=== PATIENT | male | born 1955 | race Caucasian/White ===

== ENCOUNTER 2020-07-12 08:16 | Outpatient (REF) | payer BC, SELFPAY ==
[2020-07-12 11:15] LABS: MANUAL DIFF FLAG NO
[2020-07-12 11:21] LABS: Basophils Absolute Auto 0.1 X10*3/uL (0.0-0.2); Basophils Percent Auto 1.2 % (0-2); Eosinophils Absolute Auto 0.1 X10*3/uL (0.0-0.4); Hematocrit 48.2 % (42-52); Imm Gran Abs Auto 0.04 X10*3/uL (0.00-0.03); Imm Gran Pct Auto 0.7 % (0.0-0.4); Lymphocytes Absolute Auto 1.4 X10*3/uL (1.2-4.9); Lymphocytes Percent Auto 22.7 % (20-40); Mean Corpuscular HGB Conc 33.2 g/dl (31.0-36.0); Mean Corpuscular Hemoglobin 31.3 pg (27.0-33.0); Mean Corpuscular Volume 94.1 fL (80-98); Mean Platelet Volume 10.1 fL (9.4-12.4); Monocytes Absolute Auto 0.4 X10*3/uL (0.1-1.2); Monocytes Percent Auto 7.1 % (2-11); Neutrophils Absolute Auto 3.9 X10*3/uL (2.0-8.3); Neutrophils Percent Auto 66.3 % (45-73); Platelet Count 363 X10*3/uL (160-400); Red Blood Count 5.12 X10*6/uL (4.60-5.80); Red Cell Distribution Width 13.2 % (11.0-16.0); White Blood Count 5.9 X10*3/uL (4.8-10.8)
[2020-07-12 11:53] LABS: Alanine Aminotransferase 17 U/L (0-40); Albumin Level 4.6 g/dL (3.5-5.0); Alkaline Phosphatase 78 U/L (39-117); Anion Gap 13 (12-20); Aspartate Amino Transferase 15 U/L (5-37); Bilirubin Total 0.9 mg/dL (0.0-1.0); Blood Urea Nitrogen 22 mg/dL (9-16); Calcium 9.5 mg/dL (8.4-10.2); Carbon Dioxide 28 mmol/L (22-29); Chloride 105 mmol/L (96-108); Cholesterol 204 mg/dL; Estimated Glomerular Filt Rate 54; Glucose Fasting 87 mg/dL (60-99); HDL Cholesterol 45 mg/dL; LDL Cholesterol Calculated 137 mg/dl; Potassium 4.5 mmol/L (3.3-5.1); Sodium 141 mmol/L (135-145); Total Protein 6.9 g/dL (6.5-8.0); Triglycerides 114 mg/dL
[2020-07-12 12:05] LABS: PSA,Total (Free>4and<10) 6.32 ng/mL (0.00-4.00); Thyroid Stimulating Hormone 1.48 uIU/mL (0.32-4.0); Vitamin D 25-OH Total 70.1 ng/mL (>30)
[2020-07-13 12:56] LABS: Percent Free Prostate Spec Ag 18 % (calc) (>25); Prostate Specific Ag Total 5.7 ng/mL (< OR = 4.0)
== END 2020-07-12 08:17 | disposition home or self-care (01) ==
LOC: HO.HMGCLDS 08:16
PROVIDERS: PCP Internal Medicine; Visit Provider Internal Medicine
DX: Z00.00 Encounter for general adult medical examination without abnormal findings (principal); Z12.5 Encounter for screening for malignant neoplasm of prostate; R97.20 Elevated prostate specific antigen [PSA]; E78.00 Pure hypercholesterolemia, unspecified; I10 Essential (primary) hypertension
CPT/HCPCS: 36415; 80053; 80061; 82306; 84153; 84154; 84443; 85025

== ENCOUNTER 2021-07-19 08:15 | Outpatient (REF) | payer BC, SELFPAY ==
[2021-07-19 11:18] LABS: MANUAL DIFF FLAG NO
[2021-07-19 12:03] LABS: Alanine Aminotransferase 21 U/L (0-40); Albumin Level 4.4 g/dL (3.5-5.0); Alkaline Phosphatase 73 U/L (39-117); Anion Gap 13 (12-20); Aspartate Amino Transferase 17 U/L (5-37); Bilirubin Total 0.8 mg/dL (0.0-1.0); Blood Urea Nitrogen 22 mg/dL (9-16); Carbon Dioxide 26 mmol/L (22-29); Chloride 105 mmol/L (96-108); Cholesterol 182 mg/dL; Estimated Glomerular Filt Rate > 60; Glucose Fasting 98 mg/dL (60-99); HDL Cholesterol 45 mg/dL; LDL Cholesterol Calculated 113 mg/dl; Potassium 4.5 mmol/L (3.3-5.1); Sodium 139 mmol/L (135-145); Total Protein 6.7 g/dL (6.5-8.0); Triglycerides 120 mg/dL
[2021-07-19 12:21] LABS: Basophils Absolute Auto 0.1 X10*3/uL (0.0-0.2); Basophils Percent Auto 0.8 % (0-2); Eosinophils Absolute Auto 0.2 X10*3/uL (0.0-0.4); Eosinophils Percent Auto 2.8 % (0-4); Hematocrit 49.9 % (42.0-52.0); Hemoglobin 16.3 g/dl (14.0-18.0); Imm Gran Abs Auto 0.03 X10*3/uL (0.00-0.03); Imm Gran Pct Auto 0.5 % (0.0-0.4); Lymphocytes Absolute Auto 1.5 X10*3/uL (1.2-4.9); Lymphocytes Percent Auto 23.2 % (20-40); Mean Corpuscular HGB Conc 32.7 g/dl (31.0-36.0); Mean Corpuscular Hemoglobin 30.8 pg (27.0-33.0); Mean Corpuscular Volume 94.3 fL (80.0-98.0); Mean Platelet Volume 10.1 fL (9.4-12.4); Monocytes Absolute Auto 0.5 X10*3/uL (0.1-1.2); Monocytes Percent Auto 7.1 % (2-11); Neutrophils Absolute Auto 4.2 x10*3/uL (2.0-8.3); Neutrophils Percent Auto 65.6 % (45-73); Platelet Count 360 X10*3/uL (160-400); Red Blood Count 5.29 X10*6/uL (4.60-5.80); Red Cell Distribution Width 13.6 % (11.0-16.0); White Blood Count 6.3 X10*3/uL (4.8-10.8)
[2021-07-19 12:36] LABS: Thyroid Stimulating Hormone 1.92 uIU/mL (0.32-4.0); Vitamin D 25-OH Total 72.1 ng/mL (>30)
[2021-07-20 12:36] LABS: Free Prostate Spec Ag 1.3 ng/mL; Percent Free Prostate Spec Ag 19 % (calc) (>25); Prostate Specific Ag Total 6.7 ng/mL (< OR = 4.0)
== END 2021-07-19 08:16 | disposition home or self-care (01) ==
LOC: HO.LAB 08:15
PROVIDERS: PCP Internal Medicine; Visit Provider Internal Medicine
DX: Z00.00 Encounter for general adult medical examination without abnormal findings (principal); Z12.5 Encounter for screening for malignant neoplasm of prostate; I10 Essential (primary) hypertension; E78.00 Pure hypercholesterolemia, unspecified
CPT/HCPCS: 36415; 80053; 80061; 82306; 84153; 84154; 84443; 85025

== ENCOUNTER 2022-09-20 09:50 | Outpatient (REF) | payer BC, SELFPAY ==
--- NOTE | ~2022-09-20 | FL_ITS ---
PROCEDURE: FL BARIUM SWALLOW CLINICAL INFORMATION: Dysphagia. COMPARISON: Feels like solids get stuck in the throat. TECHNIQUE: Barium swallow examination is performed using fluoroscopic evaluation in addition to multiple fluoroscopic spot views. The patient is imaged both upright and prone and using both thick and thin sulfate along with effervescent granules. Fluoroscopy time: 1.5 minutes DAP: 18.691 Gycm2 Images: 42 FINDINGS: Following oral administration of thick barium, barium-coated turkey in upright view and various positions there is normal propagation of bolus from the oral cavity through the pharynx, esophagus into stomach without any evidence of obstruction, narrowing or stricture. No extrinsic compressions. No laryngeal penetration or obstruction seen. On placing patient prone lying and oral administration of thin barium there is good distention of the esophagus without any evidence of obstruction, narrowing or stricture. There is a small sliding hiatal hernia with mild gastroesophageal reflux. FL/FL barium swallow IMPRESSION: Small sliding hiatal hernia with mild gastroesophageal reflux in supine and prone lying position.
--- NOTE | ~2022-09-20 | XR_ITS ---
EXAMINATION: XR CHEST CLINICAL INFORMATION: Essential hypertension COMPARISON: None available. TECHNIQUE: 2 views of the chest were obtained. FINDINGS: Heart size within normal limits. Aorta is tortuous. Mediastinum is unremarkable. No vascular congestion or consolidations. Trace left costophrenic angle blunting. Degenerative changes and dextroscoliosis. XR/XR chest 2V IMPRESSION: No acute cardiopulmonary disease. Trace left costophrenic angle blunting.
== END 2022-09-20 09:51 | disposition home or self-care (01) ==
LOC: HO.XRAY 09:50
PROVIDERS: PCP Internal Medicine; Visit Provider Internal Medicine
DX: R13.10 Dysphagia, unspecified (principal); I10 Essential (primary) hypertension
CPT/HCPCS: 71046; 74220

== ENCOUNTER 2022-10-25 07:04 | Outpatient (REF) | payer BC, SELFPAY ==
[2022-10-25 11:09] LABS: MANUAL DIFF FLAG NO
[2022-10-25 11:30] LABS: Basophils Absolute Auto 0.1 X10*3/uL (0.0-0.2); Basophils Percent Auto 1.1 % (0-2); Eosinophils Absolute Auto 0.2 X10*3/uL (0.0-0.4); Eosinophils Percent Auto 3.4 % (0-4); Hematocrit 47.5 % (42.0-52.0); Hemoglobin 15.9 g/dl (14.0-18.0); Imm Gran Abs Auto 0.05 X10*3/uL (0.00-0.03); Imm Gran Pct Auto 0.7 % (0.0-0.4); Lymphocytes Absolute Auto 1.7 X10*3/uL (1.2-4.9); Lymphocytes Percent Auto 24.6 % (20-40); Mean Corpuscular HGB Conc 33.5 g/dl (31.0-36.0); Mean Corpuscular Hemoglobin 31.3 pg (27.0-33.0); Mean Corpuscular Volume 93.5 fL (80.0-98.0); Mean Platelet Volume 10.1 fL (9.4-12.4); Monocytes Absolute Auto 0.6 X10*3/uL (0.1-1.2); Monocytes Percent Auto 8.4 % (2-11); Neutrophils Absolute Auto 4.4 x10*3/uL (2.0-8.3); Neutrophils Percent Auto 61.8 % (45-73); Platelet Count 367 X10*3/uL (160-400); Red Blood Count 5.08 X10*6/uL (4.60-5.80); Red Cell Distribution Width 13.2 % (11.0-16.0); White Blood Count 7.1 X10*3/uL (4.8-10.8)
[2022-10-25 12:26] LABS: Alanine Aminotransferase 16 U/L (0-40); Albumin Level 4.3 g/dL (3.5-5.0); Alkaline Phosphatase 75 U/L (39-117); Anion Gap 14 (12-20); Aspartate Amino Transferase 20 U/L (5-37); Bilirubin Total 1.1 mg/dL (0.0-1.0); Blood Urea Nitrogen 23 mg/dL (9-16); Calcium 9.7 mg/dL (8.4-10.2); Carbon Dioxide 24 mmol/L (22-29); Chloride 106 mmol/L (96-108); Cholesterol 184 mg/dL; Estimated Glomerular Filt Rate 56; Glucose Fasting 93 mg/dL (60-99); HDL Cholesterol 40 mg/dL; LDL Cholesterol Calculated 128 mg/dl; Sodium 140 mmol/L (135-145); Total Protein 6.8 g/dL (6.5-8.0); Triglycerides 82 mg/dL
[2022-10-25 12:36] LABS: PSA,Total (Free>4and<10) 9.44 ng/mL (0.00-4.00)
[2022-10-25 12:40] LABS: Thyroid Stimulating Hormone 1.77 uIU/mL (0.32-4.0)
[2022-10-29 12:09] LABS: Free Prostate Spec Ag 1.6 ng/mL; Percent Free Prostate Spec Ag 18 % (calc) (>25); Prostate Specific Ag Total 8.7 ng/mL (< OR = 4.0)
== END 2022-10-25 07:05 | disposition home or self-care (01) ==
LOC: HO.HMGCLDS 07:04
PROVIDERS: PCP Internal Medicine; Visit Provider Internal Medicine
DX: Z00.00 Encounter for general adult medical examination without abnormal findings (principal); I10 Essential (primary) hypertension; E78.00 Pure hypercholesterolemia, unspecified; Z12.5 Encounter for screening for malignant neoplasm of prostate
CPT/HCPCS: 36415; 80053; 80061; 84153; 84154; 84443; 85025

== ENCOUNTER 2023-11-11 07:38 | Outpatient (REF) | payer MEDICARE, SELFPAY ==
[2023-11-11 10:16] LABS: MANUAL DIFF FLAG NO
[2023-11-11 10:30] LABS: Basophils Absolute Auto 0.1 X10*3/uL (0.0-0.2); Eosinophils Absolute Auto 0.3 X10*3/uL (0.0-0.4); Eosinophils Percent Auto 3.7 % (0-4); Hematocrit 47.6 % (42.0-52.0); Imm Gran Abs Auto 0.04 X10*3/uL (0.00-0.03); Imm Gran Pct Auto 0.5 % (0.0-0.4); Lymphocytes Absolute Auto 1.5 X10*3/uL (1.2-4.9); Mean Corpuscular HGB Conc 33.6 g/dl (31.0-36.0); Mean Corpuscular Hemoglobin 31.6 pg (27.0-33.0); Mean Corpuscular Volume 93.9 fL (80.0-98.0); Mean Platelet Volume 10.1 fL (9.4-12.4); Monocytes Absolute Auto 0.5 X10*3/uL (0.1-1.2); Monocytes Percent Auto 6.1 % (2-11); Neutrophils Absolute Auto 5.1 x10*3/uL (2.0-8.3); Neutrophils Percent Auto 68.7 % (45-73); Platelet Count 332 X10*3/uL (160-400); Red Blood Count 5.07 X10*6/uL (4.60-5.80); Red Cell Distribution Width 13.4 % (11.0-16.0); White Blood Count 7.4 X10*3/uL (4.8-10.8)
[2023-11-11 10:58] LABS: Alanine Aminotransferase 14 U/L (0-40); Albumin Level 4.4 g/dL (3.5-5.0); Alkaline Phosphatase 73 U/L (39-117); Anion Gap 14 (12-20); Aspartate Amino Transferase 15 U/L (5-37); Bilirubin Total 1.1 mg/dL (0.0-1.0); Blood Urea Nitrogen 19 mg/dL (9-16); Calcium 9.3 mg/dL (8.4-10.2); Carbon Dioxide 25 mmol/L (22-29); Chloride 106 mmol/L (96-108); Cholesterol 213 mg/dL (<200); Estimated Glomerular Filt Rate 50; Glucose Fasting 102 mg/dL (60-99); HDL Cholesterol 50 mg/dL (>40); LDL Cholesterol Calculated 144 mg/dL (<100); Potassium 4.2 mmol/L (3.3-5.1); Sodium 141 mmol/L (135-145); Thyroid Stimulating Hormone 1.98 uIU/mL (0.32-4.0); Triglycerides 96 mg/dL (<150); Vitamin D 25-OH Total 82.4 ng/mL (>30)
== END 2023-11-11 07:39 | disposition home or self-care (01) ==
LOC: HO.HMGCLDS 07:38
PROVIDERS: PCP Internal Medicine; Visit Provider Internal Medicine
DX: Z00.00 Encounter for general adult medical examination without abnormal findings (principal); I10 Essential (primary) hypertension; E78.00 Pure hypercholesterolemia, unspecified
CPT/HCPCS: 36415; 80053; 80061; 82306; 84443; 85025

== ENCOUNTER 2024-04-08 08:03 | Outpatient (REF) | payer MEDICARE, SELFPAY ==
[2024-04-08 10:51] LABS: Alanine Aminotransferase 16 U/L (0-40); Albumin Level 4.1 g/dL (3.5-5.0); Alkaline Phosphatase 58 U/L (39-117); Anion Gap 11 (12-20); Aspartate Amino Transferase 19 U/L (5-37); Bilirubin Total 0.7 mg/dL (0.0-1.0); Blood Urea Nitrogen 33 mg/dL (9-16); Calcium 9.7 mg/dL (8.4-10.2); Carbon Dioxide 27 mmol/L (22-29); Chloride 111 mmol/L (96-108); Cholesterol 174 mg/dL (<200); Estimated Glomerular Filt Rate 30; Glucose Fasting 92 mg/dL (60-99); HDL Cholesterol 50 mg/dL (>40); LDL Cholesterol Calculated 110 mg/dL (<100); Sodium 145 mmol/L (135-145); Total Protein 6.5 g/dL (6.5-8.0); Triglycerides 72 mg/dL (<150)
== END 2024-04-08 08:04 | disposition home or self-care (01) ==
LOC: HO.HMGCLDS 08:03
PROVIDERS: PCP Internal Medicine; Visit Provider Internal Medicine
DX: I10 Essential (primary) hypertension (principal); E78.00 Pure hypercholesterolemia, unspecified
CPT/HCPCS: 36415; 80053; 80061

== ENCOUNTER 2024-05-23 12:37 | Outpatient (REF) | payer MEDICARE, SELFPAY ==
[2024-05-23 14:04] LABS: Alanine Aminotransferase 20 U/L (0-40); Albumin Level 4.2 g/dL (3.5-5.0); Alkaline Phosphatase 69 U/L (39-117); Anion Gap 11 (12-20); Aspartate Amino Transferase 21 U/L (5-37); Bilirubin Total 0.4 mg/dL (0.0-1.0); Blood Urea Nitrogen 67 mg/dL (9-16); Calcium 9.2 mg/dL (8.4-10.2); Carbon Dioxide 21 mmol/L (22-29); Chloride 112 mmol/L (96-108); Estimated Glomerular Filt Rate 17; Glucose Random 98 mg/dL (60-115); Potassium 4.4 mmol/L (3.3-5.1); Sodium 140 mmol/L (135-145)
== END 2024-05-23 12:38 | disposition home or self-care (01) ==
LOC: HO.HMGCLDS 12:37
PROVIDERS: PCP Internal Medicine; Visit Provider Internal Medicine
DX: I10 Essential (primary) hypertension (principal); N28.9 Disorder of kidney and ureter, unspecified
CPT/HCPCS: 36415; 80053

== ENCOUNTER 2024-05-26 10:34 | Outpatient (AMB) | payer MEDICARE, SELFPAY ==
--- NOTE | 2024-05-26 10:55 | A.OFFPC_ITS ---
Vital Signs 05/26/24 11:16 Height 6 ft Weight 182 lb BMI 24.7 BP 144/82 H Blood Pressure Location Rt brachial Position Sitting Pulse 92 Temp 99 F Pulse Oximetry (%) 100 Intake Visit Reasons: 1 month follow up Intake Note: Patient states 1 month follow up. Recent h/o UTI. Completed Sulfa Rx 10 days ago. Medication caused hives. Concern re recent elevated BUN - ? due to poor hydration. Recent episode of bleeding episodes X several days, h/o same. Patient reports 25 lb weight loss, perhaps due to stress. Allergies Sulfa (Sulfonamide Antibiotics) Allergy (Verified 05/26/24 11:53) Hives Medication List - Last Reconciled 05/26/24 by Liliana Johnson PA-C amlodipine 5 mg PO DAILY ramipril 10 mg PO DAILY Physical exam (Primary Care) Vital Signs: Last Vital Signs Temp 99 F 05/26/24 11:16 Pulse 92 05/26/24 11:16 BP 144/82 H 05/26/24 11:16 Pulse Ox 100 05/26/24 11:16 Care Plan Goal for BP management: BP at 144/82 Goal is 130/80 patient on antihypertensive medication if at next visit in 1 week still elevated will increased blood pressure medication BMI result Body Mass Index 24.7 Coding Level of Care Code New Pt Level 5 (21304) Complex EM visit Add On G2211 Diagnoses Renal insufficiency N28.9 Elevated PSA R97.20 Scoliosis M41.9 Basal cell carcinoma C44.91 Hypertension I10 Mild hypercholesterolemia E78.00 Assessment & Plan Assessment & Plan (1) Renal insufficiency: Code(s): N28.9 - Disorder of kidney and ureter, unspecified Category: Medical Plan: BUN creatinine is increased at 67 and 3.53 on 05/23/2024 prior in April was 33 and 2.21. Patient recently had UTI was started on Bactrim. Patient with renal insufficiency at this time may be related to medication, dehydration, infection, mass or blockage. Explained to patient that he will need to go to the emergency department immediately for further evaluation and management. (2) Elevated PSA: Code(s): R97.20 - Elevated prostate specific antigen [PSA] Category: Medical Plan: Patient being followed by Urology at [facility]. Will obtain records. Condition is chronic and stable will continue to monitor. (3) Scoliosis: Code(s): M41.9 - Scoliosis, unspecified Category: Medical Plan: Condition is chronic and stable will continue to monitor. (4) Basal cell carcinoma: Code(s): C44.91 - Basal cell carcinoma of skin, unspecified Category: Medical Plan: Patient being followed by Dermatology. Condition is chronic and stable will continue to monitor. (5) Hypertension: Code(s): I10 - Essential (primary) hypertension Category: Medical Plan: Patient currently on ramipril and amlodipine. Condition is chronic and stable will continue to monitor. (6) Mild hypercholesterolemia: Code(s): E78.00 - Pure hypercholesterolemia, unspecified Category: Medical Plan: Patient currently on coenzyme and fish oil. With last total cholesterol 174, LDL 110 and HDL 50 on 04/08/2024. Condition is chronic and stable. Plan Plan - Refer patient to the Emergency Department for immediate evaluation of renal function, potential IV fluid administration, and further workup as deemed necessary. - Monitor kidney function closely, with emphasis on potential dehydration and effects of recent Bactrim use. - Address any medicinal adjustments, particularly Ramipril, based upon further nephrology consults and laboratory evaluations. - Encourage continued hydration with clear fluids to support kidney function. Orders: Referrals Nephrology Referral E78.00 - Pure hypercholesterolemia, unspecified, I10 - Essential (primary) hypertension, N28.9 - Disorder of kidney and ureter, unspecified Medications: Discontinued sulfamethoxazole-trimethoprim 800-160 mg (Bactrim DS) Discontinued Reason: Patient Completed Course 1 tab PO BID 7 days 14 tabs 0RF phenazopyridine (Pyridium) Discontinued Reason: Patient Completed Course 200 mg PO TID 3 days 9 tabs 0RF Patient Instructions: Patient Instructions - Proceed to the Emergency Room today for further evaluation and potential treatment. - Continue to maintain hydration with water and clear fluids. - Follow-up within one week, possibly via telehealth, to discuss ER findings and next steps. - Monitor urinary changes or new symptoms and seek care promptly if they arise. - Complete any referred appointments with nephrology for advanced kidney management. Scribe Plan - Not visible on output: History of Present Illness The patient is a 68-year-old male presenting with renal insufficiency. He has a history of hypertension, hyperlipidemia, scoliosis, basal cell carcinoma, elevated PSA, and a recent bladder infection. Approximately three days prior to this visit, his creatinine level was significantly elevated at 3.53, indicating renal insufficiency. The patient had been on Bactrim, an antibiotic which can exacerbate kidney dysfunction, as part of his recent UTI treatment prescribed by Dr. Kovacs on 05/08/2024. After completing a seven-day course of Bactrim, the patient experienced a rash resembling hives. He reports drinking water regularly, although he purposely dehydrated before a recent blood draw following a plane flight. The patient denies any history of kidney stones, hematuria, or cancer, per urology evaluation. The patient's kidney function had previously been followed by Dr. Cabrales and Dr. Page. He underwent a prostate biopsy one year ago, which was negative for cancer but indicated an enlarged prostate. Social History - There is no mention of the patient's family status or caretaking responsibilities. - The patient reports an intake of water, coffee, green tea, and herbal teas as part of his nutritional habits. - He acknowledges self-monitoring and maintaining health, utilizing scar cream for recovery from skin excisions. Review of Systems - Genitourinary: Reports urinary frequency but regular flow and denies nocturia. Physical Exam Appearance: Alert. Oriented X3. No acute distress. Head: Normal external exam. Normocephalic. Atraumatic. Eyes: Pupils are equal, round, and reactive to light. Extraocular movements intact. Conjunctiva and sclera normal. Eyelids normal. Ears: External auditory canal normal. Throat: Pharynx normal. Uvula midline. Moist mucous membranes. Neck: Normal inspection. Neck supple. Full range of motion. No meningeal signs. Cardiovascular: Normal heart rate and rhythm. Heart sound normal. No murmurs noted. Pulses normal throughout. Respiratory: No respiratory distress. Painless inspiration. Breath sounds normal. No wheezes/rales/rhonchi noted. Chest nontender. No accessory muscle usage noted or decreased air movement noted. Abdomen: Soft and nontender. Bowel sounds normal in all 4 quadrants. No distention noted. No organomegaly noted. No visible injury noted. Back: No costovertebral angle tenderness. Full range of motion noted. Skin: Skin warm and dry. Normal skin color. Normal skin turgor. No rashes/lesions/lacerations noted. Extremities: Extremities exhibit normal range of motion. Extremities nontender. Neuro: Oriented X 3. No motor deficit. No sensory deficit. Reflexes normal. Results - Labs: Elevated creatinine level at 3.53 indicating impaired renal function. - Additional kidney function tests pending as per current discussion. Plan - Refer patient to the Emergency Department for immediate evaluation of renal function, potential IV fluid administration, and further workup as deemed necess justin. - Monitor kidney function closely, with emphasis on potential dehydration and effects of recent Bactrim use. - Address any medicinal adjustments, particularly Ramipril, based upon further nephrology consults and laboratory evaluations. - Encourage continued hydration with clear fluids to support kidney function. Patient was informed and verbally consented to the use of an ambient scribe for clinic note documentation during this visit. Discussion Notes I discussed with the patient the potential impact of dehydration and recent Bactrim therapy on his renal insufficiency. I advised an immediate visit to the ER for possible IV fluid management and reassessment of kidney function to ensure resolution or stabilization of the condition. I provided reassurance that the elevated creatinine may improve with rehydration and cessation of Bactrim. Follow-up with nephrology was suggested, depending upon ER findings. The patient was informed about the potential temporary discontinuation of Ramipril if recommended by nephrology. I also emphasized the need for monitoring and repeating labs to closely follow kidney function. Patient Instructions - Proceed to the Emergency Room today for further evaluation and potential treatment. - Continue to maintain hydration with water and clear fluids. - Follow-up within one week, possibly via telehealth, to discuss ER findings and next steps. - Monitor urinary changes or new symptoms and seek care promptly if they arise. - Complete any referred appointments with nephrology for advanced kidney management.
[2024-05-26 11:16] VITALS: BP 144/82; PULSE 92; TEMP 37.2; O2SAT 100; BMI 24.7
--- OUTSIDE RECORDS SUMMARY | 2024-05-26 11:54 | XMS_ITS ---
Author Organization Marshal Cabrales DO, FACP Address [address], [place] [id number] Care Team Providers Care Rhythmic Gymnastics Coach Name Role Phone Marshal Cabrales Primary Care Provider REASON FOR VISIT 1 month f/u Encounters Encounter Location Date Provider Diagnosis Marshal Cabrales DO, [facility] [address] [place] [phone] 05/26/2024 Marshal Cabrales PLAN OF TREATMENT No Information
--- OUTSIDE RECORDS SUMMARY | 2024-05-26 11:54 | XMS_ITS ---
Author Organization Marshal Cabrales DO, FACP Address [address] [place] [place], [place] [id number] Care Team Providers Care Scientific Recruiter Name Role Phone Marshal Cabrales Primary Care Provider [phone] REASON FOR VISIT f/u HTN Encounters Encounter Location Date Provider Diagnosis Marshal Cabrales DO, FACP [address] [place] [id number] 04/06/2024 Marshal Cabrales PLAN OF TREATMENT No Information
--- OUTSIDE RECORDS SUMMARY | 2024-05-26 11:54 | XMS_ITS ---
Author Organization [facility] DO [facility] Address [address], [place] [id number] Care Team Providers Care Classroom Coordinator Name Role Phone Marshal Cabrales Primary Care Provider ALLERGIES No Known Allergies REASON FOR VISIT Follow up hypertension, Elevated PSA MEDICATIONS Medication SIG (Take, Route, Frequency, Duration) Notes Start Date End Date Status Fish Oil 1200 MG 2 capsules Orally On ce a day Active Coenzyme Q-10 200 MG 1 capsule with a me al Orally Once a day Active Ramipril 10 MG 1 capsule Orally Once a day 024 Active Multivitamins 1 capsule Orally Once a day Active Probiotic 250 MG 1 capsule Orally Once a day Active amLODIPine Besylate 5 MG 1 tablet Orally Once a day Active SOCIAL HISTORY Tobacco Use: Social History Observation Description Date Details (start date - stop date) Never Smoker NA - NA Sex Assigned At : Social History Observation Description Sex Assigned At Unknown Tobacco Use/Smoking Question Answer Notes Patient is a nonsmoker Additional Findings: Tobacco Non-User Cu rrent non-smoker, currently using no form of tobacco Alcohol Screen Question Answer Notes Did you have a drink contain ing alcohol in the past year? Yes How often did you have a dri nk containing alcohol in the past year? Monthly or less (1 point) How many drinks did you have on a typical day when you were drinking in the past year? 1 or 2 drinks (0 point) How often did you have 6 or more drinks on one occasion in the past year? Never (0 point) Points 1 Interpretation Negative Encounters Encounter Location Date Provider Diagnosis Marshal Cabrales DO [facility] [address], [place] [phone] 04/17/2024 Marshal Cabrales Essential hypertensi on I10 ; Hypercholesterolemia E78.00 ; Elevated PSA R97.20 and Renal insufficiency N28.9 ASSESSMENTS Encounter Date Diagnosis Assessment Notes Treatment Notes Treatment Clinical Notes 04/17/2024 Essential hypertensi on (ICD-10 - I10) 04/17/2024 Hypercholesterolemia (ICD-10 - E78.00) 04/17/2024 Elevated PSA (ICD-10 - R97.20) Follow up with Urology 04/17/2024 Renal insufficiency (ICD-10 - N28.9) Stay well hydrated. Repeat renal function testing in 3 weeks. If BUN and creatinine do not trend downward Boom will need further evaluation with a Nephrology referral PLAN OF TREATMENT Medication Medication Name Sig Start Date Stop Date Notes Fish Oil 1200 MG 2 capsules Orally Once a day Coenzyme Q-10 200 MG 1 capsule with a me al Orally Once a day Ramipril 10 MG 1 capsule Orally Once a day 01/14/2024 Multivitamins 1 capsule Orally Once a day Probiotic 250 MG 1 capsule Orally Once a day amLODIPine Besylate 5 MG 1 tablet Orally Once a day Treatment Notes Assessment Notes Elevated PSA Follow up with Urolo gy Renal insufficiency Stay well hydrated. Repeat renal function testing in 3 weeks. If BUN and creatinine do not trend downward Boom will need further evaluation with a Nephrology referral Pending Test Test Name Order Date PROFILE, RANDOM 04/17/2024 Next Appt Details Follow Up: 4 Weeks, Reason: follow up visit,review lab work Progress Notes * Examination Category Sub-Category Detail Notes General Examination PSYCH: alert, orien felton, cognitive function intact History and Physical Notes * HPI (History of Present Illness) Category Sub-Category Detail Notes New symptom(s) Telehealth Location of provider:: Pro adryanr's home address Location of patient:: Address listed in demographics for today's visit Patient identification confirmed using:: Name, Telehealth method:: Telephone only. Cherise ent not visible to care provider. Consent:: Patient verbally c onsented to treatment, Patient verbally consented to billing insurance company, Patient informed of any privacy concerns related to method of visit Total time spent with patient (mins): 24 Disclaimer: This Telehealth visit is being conducted per CDC recommendations due to the COVID-19 outbreak.
--- OUTSIDE RECORDS SUMMARY | 2024-05-26 11:55 | XMS_ITS | Patient Health Record ---
Author Organization Marshal Cabrales DO, FAC Address [address], [place] [id number] Care Team Providers Care Agricultural Services Director Name Role Phone Marshal Cabrales Primary Care Provider [phone] ALLERGIES No Known Allergies RESULTS Component Value Reference Range Notes Complete Blood Count Auto Di ff Reviewed date:11/11/2023 10:51:08 AM Interpretation:Normal Performing Lab:[facility], [address] [place] [phone] Notes/Report: White Blood Count 7.4 4.8-10.8 X10*3/uL Red Blood Count 5.07 4.60-5.80 X10*6/uL Hemoglobin 16.0 14.0-18.0 g/dl Hematocrit 47.6 42.0-52.0 % Mean Corpuscular Volume 93.9 80.0-98.0 fL Mean Corpuscular Hemoglobin 31.6 27.0-33.0 pg Mean Corpuscular HGB Conc 33.6 31.0-36.0 g/dl Red Cell Distribution Width 13.4 11.0-16.0 % Platelet Count 332 160-400 X10*3/uL Mean Platelet Volume 10.1 9.4-12.4 fL Neutrophils Percent Auto 68.7 45-73 % Imm Gran Pct Auto 0.5 0.0-0.4 % Lymphocytes Percent Auto 20.0 20-40 % Monocytes Percent Auto 6.1 2-11 % Eosinophils Percent Auto 3.7 0-4 % Basophils Percent Auto 1.0 0-2 % NRBC Pct Auto 0.0 0.0-0.2 /100WBC Neutrophils Absolute Auto 5.1 2.0-8.3 x10*3/u L Imm Gran Abs Auto 0.04 0.00-0.03 X10*3/uL Lymphocytes Absolute Auto 1.5 1.2-4.9 X10*3/u L Monocytes Absolute Auto 0.5 0.1-1.2 X10*3/uL Eosinophils Absolute Auto 0.3 0.0-0.4 X10*3/u L Basophils Absolute Auto 0.1 0.0-0.2 X10*3/uL NRBC Abs Auto 0.000 0.0-0.012 X10*3/uL Comprehensive [place]. Panel Fa st Reviewed date:11/11/2023 11:10:02 AM Interpretation:Abnormal Performing Lab:[facility], [address] [place] [phone] Notes/Report: Sodium 141 135-145 mmol/L Potassium 4.2 3.3-5.1 mmol/L Chloride 106 96-108 mmol/L Carbon Dioxide 25 22-29 mmol/L Anion Gap 14 12-20 Blood Urea Nitrogen 19 9-16 mg/dL Creatinine 1.41 0.5-1.4 mg/dL Estimated Glomerular Filt Rate 50 NOTE: For -[place] individuals, multiply the result by 1.210. Chronic Kidney Disease: Estimated GFR < 60 mL/min/1.73m2 Severe Kidney Disease: Estimated GFR < 15 mL/min/1.73m2 Glucose Fasting 102 60-99 mg/dL A fasting glucose from 100-125 mg/dl is considered impaired (pre-diabetes). Calcium 9.3 8.4-10.2 mg/dL Bilirubin Total 1.1 0.0-1.0 mg/dL Aspartate Amino Transferase 15 5-37 U/L Alanine Aminotransferase 14 0-40 U/L Total Protein 7.0 6.5-8.0 g/dL Albumin Level 4.4 3.5-5.0 g/dL Alkaline Phosphatase 73 39-117 U/L Lipid Panel Reviewed date:11/11/2023 11:09:41 AM Interpretation:Abnormal Performing Lab:[facility], [address] [place] [phone] Notes/Report: Triglycerides 96 <150 mg/dL Desirable Triglyceride: less than 150 mg/dL Borderline High Triglyceride 150-199 mg/dL High Triglyceride: 200-499 mg/dL Very High Triglyceride: greater than or equal to 5OO mg/dL Cholesterol 213 <200 mg/dL Desirable Cholesterol: less than 200 mg/dL Borderline High Cholesterol: 200-239 mg/dL High Cholesterol: greater than 239 mg/dL LDL Cholesterol Calculated 144 <100 mg/dL Desirable LDL: less than 100 mg/dL Near Optimal/Above Optimal LDL: 110-129 mg/dL Borderline High LDL: 130-159 mg/dL High LDL: 160-189 mg/dL Very High LDL: greater than or equal to 190 mg/dL HDL Cholesterol 50 >40 mg/dL Desirable HDL: greater than 40 mg/dL Note: This HDL assay may give artificially low results in patients with liver disease. Vitamin D 25-OH Total Reviewed date:11/11/2023 11:08:39 AM Interpretation:Normal Performing Lab:[facility], [address] [place] [phone] Notes/Report: Vitamin D 25-OH Total 82.4 >30 ng/mL Health Based Reference Values* < 20 ng/mL Deficient 20-30 ng/mL Insufficient > 30 ng/mL Sufficient *Leti LOWE. N Engl J Med. 2007;357:266-280 Care must be taken in interpreting Vitamin D results from different laboratories and methodologies. Published data demonstrated that results from patients undergoing hemodialysis may show a negative bias when tested with various automated 25-OH vitamin D assays when compared to LC-MS/MS. When testing samples from patients whose predominant form of Vitamin D is Vitamin D2, such as patients receiving Vitamin D2 supplementation, results that are subtherapeutic should be confirmed with another method such as LC-MS/MS. Thyroid Stimulating Hormone Reviewed date:11/11/2023 11:08:39 AM Interpretation:Normal Performing Lab:[facility], [address] [place] [phone] Notes/Report: Thyroid Stimulating Hormone 1.98 0.32-4.0 uIU/ mL TSH 3rd Generation ([facility]) Comprehensive [place]. Panel Fa st Reviewed date:04/08/2024 11:17:09 AM Interpretation:Abnormal Performing Lab:[facility], [address] [place] [phone] Notes/Report: Sodium 145 135-145 mmol/L Potassium 4.0 3.3-5.1 mmol/L Chloride 111 96-108 mmol/L Carbon Dioxide 27 22-29 mmol/L Anion Gap 11 12-20 Blood Urea Nitrogen 33 9-16 mg/dL Creatinine 2.21 0.5-1.4 mg/dL Estimated Glomerular Filt Rate 30 Chronic Kidney Disease: Estimated GFR < 60 mL/min/1.73m2 Severe Kidney Disease: Estimated GFR < 15 mL/min/1.73m2 Glucose Fasting 92 60-99 mg/dL Calcium 9.7 8.4-10.2 mg/dL Bilirubin Total 0.7 0.0-1.0 mg/dL Aspartate Amino Transferase 19 5-37 U/L Alanine Aminotransferase 16 0-40 U/L Total Protein 6.5 6.5-8.0 g/dL Albumin Level 4.1 3.5-5.0 g/dL Alkaline Phosphatase 58 39-117 U/L Lipid Panel Reviewed date:04/08/2024 11:16:34 AM Interpretation:Normal Performing Lab:[facility], [address] [place] [phone] Notes/Report: Triglycerides 72 <150 mg/dL Desirable Triglyceride: less than 150 mg/dL Borderline High Triglyceride 150-199 mg/dL High Triglyceride: 200-499 mg/dL Very High Triglyceride: greater than or equal to 5OO mg/dL Cholesterol 174 <200 mg/dL Desirable Cholesterol: less than 200 mg/dL Borderline High Cholesterol: 200-239 mg/dL High Cholesterol: greater than 239 mg/dL LDL Cholesterol Calculated 110 <100 mg/dL Desirable LDL: less than 100 mg/dL Near Optimal/Above Optimal LDL: 110-129 mg/dL Borderline High LDL: 130-159 mg/dL High LDL: 160-189 mg/dL Very High LDL: greater than or equal to 190 mg/dL HDL Cholesterol 50 >40 mg/dL Desirable HDL: greater than 40 mg/dL Note: This HDL assay may give artificially low results in patients with liver disease. REASON FOR REFERRAL No Information MEDICATIONS Medication SIG (Take, Route, Frequency, Duration) Notes Start Date End Date Status Fish Oil 1200 MG 2 capsules Orally On ce a day Active Coenzyme Q-10 200 MG 1 capsule with a me al Orally Once a day Active amLODIPine Besylate 5 MG 1 tablet Orally Once a day Active Ramipril 10 MG 1 capsule Orally Once a day 024 Active Multivitamins 1 capsule Orally Once a day Active Probiotic 250 MG 1 capsule Orally Once a day Active IMMUNIZATIONS Vaccine Route Administration Date Status Comme nts Influenza Quad IM Intramuscular 01/13/2016 Administered Influenza Quad IM Intramuscular 01/22/2017 Administered Influenza Quad IM Intramuscular 02/23/2021 Administered Shingrix Unknown 12/15/2018 Administered Influenza Quad Unknown 03/17/2019 Administered COVID-19 Pfizer BioNTech Unknown 08/13/2020 Administere d Shingrix Unknown 04/17/2019 Administered COVID-19 Pfizer BioNTech Unknown 03/27/2021 Administere d COVID-19 Pfizer BioNTech Unknown 07/23/2020 Administere d COVID-19 Pfizer BioNTech Unknown 09/07/2021 Administere d COVID-19 Pfizer Bivalent Unknown 09/03/2022 Administere d Influenza Unknown 01/31/2024 Administered SOCIAL HISTORY Tobacco Use: Social History Observation [...] Never (0 point) Points 1 Interpretation Negative PROBLEMS Problem Type ICD Code Onset Dates Problem Status W/U Status Risk SNOMED Code Notes Problem Essential hypertensi on (I10) Active confirmed 47007247 Problem Hypercholesterolemia (E78.00) Active confirmed 67660354 Problem Dysphagia, unspecifi ed type (R13.10) Active confirmed 75890116 VITAL SIGNS Blood pressure diastolic 78 mm Hg 01/14/2024 Height 72 in 01/14/2024 Blood pressure systolic 130 mm Hg 01/14/2024 Weight 184 lbs 01/14/2024 BMI 24.95 kg/m2 01/14/2024 Encounters Encounter Location Date Provider Diagnosis Marshal Cabrales DO, [address] [phone] 08/07/2023 Marshal Cabrales Encounter for genera l adult medical examination without abnormal findings Z00.00 ; Essential hypertension I10 and Hypercholesterolemia E78.00 Marshal Cabrales DO, FACP [address], [place] [phone] 11/13/2023 Marshal Cabrales Essential hypertensi on I10 and Hypercholesterolemia E78.00 Marshal Brennan Keron , [facility] [address], [place] [id number] 01/14/2024 Marshal Cabrales Essential hypertensi on I10 and Hypercholesterolemia E78.00 Marshal Mika Keron PAHM, [facility] [address], [place] [id number] 03/31/2024 Marshal Cabrales Marshal Brennan Keron , [facility] [address], [place] [id number] 05/26/2024 Marshal Keron Marshal Brennan Keron , [facility] [address], [place] [phone] 02/28/2024 Marshal Cabrales Essential hypertensi on I10 Marshal Mika Keron PHAM, [facility] [address], [place] [phone] 04/06/2024 Marshal Cabrales Marshal Brennan Keron PHAM, [facility] [address], [place] [phone] 04/17/2024 Marshal Cabrales Essential hypertensi on I10 ; Hypercholesterolemia E78.00 ; Elevated PSA R97.20 and Renal insufficiency N28.9 Marshal Brennan Keron PHAM, [facility], [place] [phone] 01/11/2024 Marshal Cabrales ASSESSMENTS Encounter Date Diagnosis Assessment Notes Treatment Notes Treatment Clinical Notes 08/07/2023 Encounter for [facility] adult medical examination without abnormal findings (ICD-10 - Z00.00) 08/07/2023 Essential hypertensi on (ICD-10 - I10) Exercise, low salt diet 11/13/2023 Essential hypertensi on (ICD-10 - I10) Low salt diet 11/13/2023 Hypercholesterolemia (ICD-10 - E78.00) Low cholesterol diet 01/14/2024 Essential hypertensi on (ICD-10 - I10) 01/14/2024 Hypercholesterolemia (ICD-10 - E78.00) 02/28/2024 Essential hypertensi on (ICD-10 - I10) 04/17/2024 Essential hypertensi on (ICD-10 - I10) 04/17/2024 Hypercholesterolemia (ICD-10 - E78.00) 08/07/2023 Hypercholesterolemia (ICD-10 - E78.00) 04/17/2024 Elevated PSA (ICD-10 - R97.20) Follow up with Urology 04/17/2024 Renal insufficiency (ICD-10 - N28.9) Stay well hydrated. Repeat renal function testing in 3 weeks. If BUN and creatinine do not trend downward Boom will need further evaluation with a Nephrology referral PLAN OF TREATMENT Pending Test Test Name Order Date PROFILE, RANDOM 04/17/2024 Insurance Providers Payer Name Payer Address Payer Phone Subscriber Number Group Number Insured Name Patient Relationship to Insured Coverage Start Date Coverage End Date [employer] [address] [place], [place] [id number] [phone] [id number] Boom Hinojosa Self - patient is the insured MEDICAL (GENERAL) HISTORY Medical History History ICD Code hypertension basal cell carcinoma scoliosis Elevated PSA R97.20 Surgical History Surgery Date(Month/Year) tonsillectomy wisdom teeth extraction left wrist lump removal lasik surgery OU basal cell carcinoma resection
== END 2024-05-26 11:42 | disposition home or self-care (01) ==
LOC: HO.HMCSH 10:34
PROVIDERS: PCP Internal Medicine; Visit Provider Physician Assistant Medical
DX: I10 Essential (primary) hypertension (principal); N28.9 Disorder of kidney and ureter, unspecified; R97.20 Elevated prostate specific antigen [PSA]; M41.9 Scoliosis, unspecified; C44.91 Basal cell carcinoma of skin, unspecified; E78.00 Pure hypercholesterolemia, unspecified

== ENCOUNTER 2024-05-26 12:16 | Emergency (ER) | payer MEDICARE, SELFPAY ==
--- NOTE | ~2024-05-26 | US_ITS ---
EXAMINATION: US RETROPERITONEAL LIMITED (RENAL ONLY) CLINICAL INFORMATION: MOOK on CKD. COMPARISON: None available. TECHNIQUE: Routine retroperitoneal ultrasound imaging is performed with attention the kidneys. FINDINGS: RIGHT KIDNEY: 10.7 x 6.2 x 6.4 cm (SAG x AP x TRV). The kidney is normal in size, contour, and echogenicity. Renal cortical thickness is normal. No calculi or focal parenchymal lesions. There is moderate hydronephrosis. LEFT KIDNEY: 10.8 x 6.9 x 6.7 cm (SAG x AP x TRV). The kidney is normal in size, contour, and echogenicity. Renal cortical thickness is normal. No calculi or focal parenchymal lesions. There is moderate hydronephrosis. Bladder: There is a moderate enlarged prostate gland measuring 62.5 mL with extension into the base of the bladder likely cause of obstructive bilateral hydronephrosis. Bilateral ureteral jets are not seen. US/US renal BI IMPRESSION: Moderate prostate enlargement with median lobe extending through the base of bladder and appearing as intraluminal mass. This results in obstructive bilateral hydronephrosis. Correlation with noncontrast CT abdomen and pelvis can be performed if clinically indicated or urology consult. Electronically signed by: Gunnar Quigley MD 05/26/2024 01:09 PM LUPIS
[2024-05-26 12:30] VITALS: BP 169/100; PULSE 90; RESP 20; TEMP 36.6; O2SAT 100; BMI 24.7
--- NOTE | 2024-05-26 12:30 | ED.RECABL ---
HPI - Recheck/Abnormal Lab/Rx General Chief Complaint: Recheck/Abnormal Lab/Rx Stated Complaint: Abnormal labs Time Seen by Provider: 05/27/24 00:04 Source: patient Mode of arrival: ambulatory Limitations: no limitations History of Present Illness ED Provider: HPI narrative: Patient with history of enlarged prostate had recent UTI with history of hypertension was given Bactrim noted to have elevated creatinine of 3.53 on 05/23 PCP sent the patient to the ER patient's creatinine been increasing since 11/26 does have a history of enlarged prostate prostate biopsy was negative for cancer patient has had ultrasound done prior to my evaluation which showed moderate prostate enlargement with obstructive bilateral hydronephrosis Related Data Home Medications ?Medication ?Instructions ?Recorded ?Confirmed amlodipine 5 mg tablet 5 mg PO DAILY 05/26/24 05/26/24 ramipril 10 mg capsule 10 mg PO DAILY 05/26/24 05/26/24 Previous Rx's ?Medication ?Instructions ?Recorded cefuroxime axetil 250 mg tablet 250 mg PO BID 7 days #14 tabs 05/27/24 tamsulosin 0.4 mg capsule (Flomax) 0.4 mg PO BEDTIME #30 caps 05/27/24 Allergies Allergy/AdvReac Type Severity Reaction Status Date / Time Sulfa (Sulfonamide Allergy Hives Verified 05/26/24 12:32 Antibiotics) Review of Systems Review of Systems: Yes all other systems are reviewed and are negative [facility] Social History Social History Advance Directives: Yes Advance Directives Information Provided: Yes Advance Directives on File: No Physical Exam Vital Signs: Vital Signs: Last Vital Signs Temp 97.8 F 05/27/24 00:59 Pulse 96 05/27/24 00:59 Resp 16 05/27/24 00:59 BP 156/93 H 05/27/24 00:59 Pulse Ox 99 05/27/24 00:59 O2 Del Method Room Air 05/27/24 00:59 BMI result Body Mass Index 24.7 Appearance: Alert. Oriented X3. No acute distress. Eyes: No pallor or icterus ENT: Pharynx normal. Oral Mucosa moist Neck: Normal inspection. Neck supple. CVS: Normal heart rate and rhythm. Pulses normal. Respiratory: No respiratory distress. Equal air entry bilateral, no wheezing/rales/rhonchi Abdomen: Soft and nontender. Bowel sounds are present, suprapubic bladder fullness+, no CVA tenderness Skin: Skin warm and dry. Normal skin color. Normal skin turgor. Extremities: No lower extremity edema. No calf tenderness Neuro: Oriented X 3. No motor deficit. No sensory deficit.No cerebellar signs , cranial nerves II-XII intact Course Course Course Narrative: This is a Rapid Medical Examination (RME) performed by Vannessa Waters PA-C in triage. Full HPI, ROS, assessment and treatment plan per primary provider in the Main ED. 68 yo male with history of HTN, HLD, elevated PSA s/p normal prostate biopsy who presents to the ER from PCP for evaluation of MOOK on CKD. he recently had UTI and was treated with Bactrim x7 days. routine labs on 05/23 showed SCr up to 3.53 from a baseline of 2.21 in April and 1.41 in November. on BISHOP for HTN. Plan: labs, UA, urine lytes, and renal U/S Reevaluation(s) Reevaluation #1: Patient re-evaluated. Labs reviewed. He is newly anemic with hemoglobin of 10.9 from baseline of around 15-16 in the past. He reports bright red blood per rectum with hemorrhoidal lower GI bleed last week after his Bactrim. This has since resolved. No history of anemia in the past. This may also be due to his progressing CKD. Will repeat H and H now. He appears well Time: 20:15 Medications Administered Discontinued Medications Generic Name Dose Route Start Last Admin Trade Name Freq PRN Reason Stop Dose Admin Cefuroxime Axetil 500 mg 05/27/24 00:41 05/27/24 00:55 Cefuroxime Axetil 500 Mg Tablet PO 05/27/24 00:42 500 mg ONCE ONE Administration Tamsulosin HCl 0.4 mg 05/27/24 00:40 05/27/24 00:55 Tamsulosin Hcl 0.4 Mg Capsule PO 05/27/24 00:41 0.4 mg ONCE ONE Administration Medical Decision Making Medical Decision Making [facility] Narrative: Patient has bilateral obstructive hydronephrosis from enlarged prostate causing acute on chronic renal insufficiency post voidal volume was more than [address] Jarvis catheter RN tried to play the Jarvis catheter had a traumatic hematuria 14 Citizen [place] catheter was replaced by myself clear urine Lab Data MDM Lab Attestation statement: I reviewed the patient's lab results. 05/26/24 20:33 05/26/24 13:23 Labs: Lab Results 05/26/24 05/26/24 05/26/24 Range/Units 13:19 13:23 20:33 WBC 9.3 10.9 H (4.8-10.8) X10*3/uL RBC 3.46 L D 3.54 L (4.60-5.80) X10*6/uL Hgb 10.9 L D 11.1 L (14.0-18.0) g/dl Hct 32.5 L D 32.8 L (42.0-52.0) % MCV 93.9 92.7 (80.0-98.0) fL MCH 31.5 31.4 (27.0-33.0) pg MCHC 33.5 33.8 (31.0-36.0) g/dl RDW 13.0 12.9 (11.0-16.0) % Plt Count 481 H D 482 H (160-400) X10*3/uL MPV 8.6 L 8.4 L (9.4-12.4) fL Immature Gran % (Auto) 1.1 H 1.2 H (0.0-0.4) % Neut % (Auto) 76.2 H 67.0 (45-73) % Lymph % (Auto) 14.1 L 20.5 (20-40) % [place] % (Auto) 6.3 7.7 (2-11) % Eos % (Auto) 1.1 2.1 (0-4) % Baso % (Auto) 1.2 1.5 (0-2) % Lymph # (Auto) 1.3 2.2 (1.2-4.9) X10*3/uL [place] # (Auto) 0.6 0.8 (0.1-1.2) X10*3/uL Eos # (Auto) 0.1 0.2 (0.0-0.4) X10*3/uL Baso # (Auto) 0.1 0.2 (0.0-0.2) X10*3/uL Abs Immat Gran (auto) 0.10 H 0.13 H (0.00-0.03) X10*3/uL Absolute Neuts (auto) 7.1 7.3 (2.0-8.3) x10*3/uL Absolute Nucleated RBC 0.000 0.000 (0.0-0.012) X10*3/uL Nucleated RBC % (auto) 0.0 0.0 (0.0-0.2) /100WBC Sodium 137 (135-145) mmol/L Potassium 4.2 (3.3-5.1) mmol/L Chloride 106 (96-108) mmol/L Carbon Dioxide 22 (22-29) mmol/L Anion Gap 13 (12-20) BUN 55 H (9-16) mg/dL Creatinine 3.36 H (0.5-1.4) mg/dL Estim Creat Clear Calc 23.7 Estimated GFR 18 Random Glucose 98 (60-115) mg/dL Calcium 8.9 (8.4-10.2) mg/dL Magnesium 2.4 (1.6-2.6) mg/dL Total Bilirubin 0.5 (0.0-1.0) mg/dL Direct Bilirubin 0.1 (0.0-0.5) mg/dL AST 26 (5-37) U/L ALT 14 (0-40) U/L Alkaline Phosphatase 74 (39-117) U/L Total Protein 7.4 (6.5-8.0) g/dL Albumin 4.4 (3.5-5.0) g/dL Urine Color Yellow Urine Appearance Clear Urine pH 5.5 (5.0-9.0) Ur Specific [place] 1.010 (1.005-1.025) Urine Protein Negative (Neg-Trace) mg/dL Urine Glucose (UA) Negative (Negative) mg/dL Urine Ketones Negative (Negative) mg/dL Urine Blood Negative (Negative) Urine Nitrite Negative (Negative) Ur Leukocyte Esterase Moderate (2+) H (Negative) Urine RBC 0-2 (0-2) /HPF Urine WBC 21-50 H (0-5) /HPF Ur Squamous Epith Cells 0-2 (0-2) /HPF Urine Bacteria None Seen (None Seen) Hyaline Casts 0-2 (0-2) /LPF Urine Osmolality 295 L (373-1093) mosm/kg Ur Random Sodium 42.0 mmol/L Urine Creatinine 58.25 mg/dL Procedures Catheter Insertion (Urinary) Date of insertion: 05/27/24 Time of insertion: 02:34 Reason for placing: Yes Reason for placing indwelling catheter: Acute urinary retention Bladder scan/ultrasound used before catheterization: Yes Estimated amount of urine (mLs): 550 Antiseptic solution prep: Povidone-Iodine Topical anesthesia used: Yes Catheter type/location: Urethral Size (Citizen [place]): 14 Catheter balloon size (mL): 5 Catheter balloon amount: 5 Results: successfully catheterized-immediate flow Procedure performed: without complications Discharge Plan Discharge Clinical Impression: Obstructed, uropathy, Benign enlargement of prostate, Acute on chronic renal failure, Acute UTI Patient Disposition: Home, Self-Care Instructions: Acute Kidney Injury (DC), Enlarged Prostate (BPH) (ED), Urinary Tract Infection in Men (DC) Additional Instructions: Drink plenty of fluids Jarvis catheter care as advised, Flomax daily Follow with your urologist for further management Your enlarged prostate is likely the cause for renal insufficiency See your PCP next week to recheck kidney functions Antibiotics as prescribed for urinary tract infection Stop ramipril for now Increase the dose of amlodipine to 10 mg daily for blood pressure control Prescriptions: New tamsulosin [Flomax] 0.4 mg capsule 0.4 mg PO BEDTIME Qty: 30 0RF cefuroxime axetil 250 mg tablet 250 mg PO BID 7 Days Qty: 14 0RF No Action ramipril 10 mg capsule 10 mg PO DAILY amlodipine 5 mg tablet 5 mg PO DAILY Referrals: Adria Lehman MD [Physician] - 3 days Print Language: Indonesian
[2024-05-26 13:29] LABS: MANUAL DIFF FLAG NO
[2024-05-26 13:33] LABS: Basophils Absolute Auto 0.1 X10*3/uL (0.0-0.2); Basophils Percent Auto 1.2 % (0-2); Eosinophils Absolute Auto 0.1 X10*3/uL (0.0-0.4); Eosinophils Percent Auto 1.1 % (0-4); Hematocrit 32.5 % (42.0-52.0); Hemoglobin 10.9 g/dl (14.0-18.0); Imm Gran Pct Auto 1.1 % (0.0-0.4); Lymphocytes Absolute Auto 1.3 X10*3/uL (1.2-4.9); Lymphocytes Percent Auto 14.1 % (20-40); Mean Corpuscular HGB Conc 33.5 g/dl (31.0-36.0); Mean Corpuscular Hemoglobin 31.5 pg (27.0-33.0); Mean Corpuscular Volume 93.9 fL (80.0-98.0); Mean Platelet Volume 8.6 fL (9.4-12.4); Monocytes Absolute Auto 0.6 X10*3/uL (0.1-1.2); Monocytes Percent Auto 6.3 % (2-11); Neutrophils Absolute Auto 7.1 x10*3/uL (2.0-8.3); Neutrophils Percent Auto 76.2 % (45-73); Platelet Count 481 X10*3/uL (160-400); Red Blood Count 3.46 X10*6/uL (4.60-5.80); White Blood Count 9.3 X10*3/uL (4.8-10.8)
[2024-05-26 13:35] LABS: Appearance Urine Clear; Color Urine Yellow; Glucose Urine UA Negative (Negative); Leukocyte Esterase Urine Moderate (2+) (Negative); Nitrite Urine Negative (Negative); PH 5.5 (5.0-9.0); UMIC TRIGGER UACC YES; Urine Blood Negative (Negative); Urine Ketones Negative (Negative); Urine Protein Negative (Neg-Trace)
[2024-05-26 13:41] LABS: Bacteria Urine None Seen (None Seen); Hyaline Casts Urine 0-2 /LPF (0-2); RBC Urine 0-2 /HPF (0-2); Squamous Epithelial Cell Urine 0-2 /HPF (0-2); UACC Culture Trigger YES; WBC Urine 21-50 /HPF (0-5)
[2024-05-26 13:44] LABS: Alanine Aminotransferase 14 U/L (0-40); Albumin Level 4.4 g/dL (3.5-5.0); Alkaline Phosphatase 74 U/L (39-117); Anion Gap 13 (12-20); Aspartate Amino Transferase 26 U/L (5-37); Bilirubin Direct 0.1 mg/dL (0.0-0.5); Bilirubin Total 0.5 mg/dL (0.0-1.0); Blood Urea Nitrogen 55 mg/dL (9-16); Calcium 8.9 mg/dL (8.4-10.2); Carbon Dioxide 22 mmol/L (22-29); Chloride 106 mmol/L (96-108); Creatinine Clr Calc Pharmacy 23.7; Estimated Glomerular Filt Rate 18; Glucose Random 98 mg/dL (60-115); Magnesium 2.4 mg/dL (1.6-2.6); Potassium 4.2 mmol/L (3.3-5.1); Sodium 137 mmol/L (135-145); Total Protein 7.4 g/dL (6.5-8.0)
[2024-05-26 14:22] LABS: Osmolality Urine 295 mosm/kg (373-1093)
[2024-05-26 16:51] LABS: Creatinine Urine 58.25 mg/dL
[2024-05-26 20:15] VITALS: BP 156/98; PULSE 89; RESP 16; TEMP 36.4; O2SAT 99
[2024-05-26 20:39] LABS: Basophils Absolute Auto 0.2 X10*3/uL (0.0-0.2); Basophils Percent Auto 1.5 % (0-2); Eosinophils Absolute Auto 0.2 X10*3/uL (0.0-0.4); Eosinophils Percent Auto 2.1 % (0-4); Hematocrit 32.8 % (42.0-52.0); Hemoglobin 11.1 g/dl (14.0-18.0); Imm Gran Abs Auto 0.13 X10*3/uL (0.00-0.03); Imm Gran Pct Auto 1.2 % (0.0-0.4); Lymphocytes Absolute Auto 2.2 X10*3/uL (1.2-4.9); Lymphocytes Percent Auto 20.5 % (20-40); MANUAL DIFF FLAG NO; Mean Corpuscular HGB Conc 33.8 g/dl (31.0-36.0); Mean Corpuscular Hemoglobin 31.4 pg (27.0-33.0); Mean Corpuscular Volume 92.7 fL (80.0-98.0); Mean Platelet Volume 8.4 fL (9.4-12.4); Monocytes Absolute Auto 0.8 X10*3/uL (0.1-1.2); Monocytes Percent Auto 7.7 % (2-11); Neutrophils Absolute Auto 7.3 x10*3/uL (2.0-8.3); Platelet Count 482 X10*3/uL (160-400); Red Blood Count 3.54 X10*6/uL (4.60-5.80); Red Cell Distribution Width 12.9 % (11.0-16.0); White Blood Count 10.9 X10*3/uL (4.8-10.8)
[2024-05-27] MEDS: cefuroxime axetiL 500 MG TABLET PO (00:55)
[2024-05-27] MEDS: Tamsulosin HCL 0.4 MG CAPSULE PO (00:55)
[2024-05-27 00:59] VITALS: BP 156/93; PULSE 96; RESP 16; TEMP 36.6; O2SAT 99
--- NOTE | 2024-05-27 01:50 | PC.NURSE ---
16fr tan catheter placed using sterile technique. Encountered resistance and pt reported mild discomfort during advancement of catheter tubing. repositioned pt slightly and advanced tubing gently. 40mls noted initially. Shortly after blood clotting in tubing observed as well as coiling. tan catheter irrigated with 30mls of sterile NS. Clots appeared to have been flushed appropriately and balloon inflated. however shortly after it was again noted that urine output decreased and clotting developed in tubing. Notified charge as provider was not available. attempted irrigation with no resolve. Provider at bedside removed catheter and provider placed 14fr caude. positive urine output free of clotting.
[2024-05-27] MEDS: Lidocaine HCl 2 % Urojet 10 ML JEL.PF.APP TOPICAL ×2 (02:30)
[2024-05-27 03:07] VITALS: BP 157/90; PULSE 82; RESP 18; TEMP 36.9; O2SAT 98
== END 2024-05-27 03:09 | disposition home or self-care (01) ==
PROVIDERS: Physician Assistant; Emergency Provider Internal Medicine; PCP Internal Medicine
DX: N13.9 Obstructive and reflux uropathy, unspecified (principal); R79.89 Other specified abnormal findings of blood chemistry; N17.9 Acute kidney failure, unspecified; N39.0 Urinary tract infection, site not specified; R33.9 Retention of urine, unspecified; D64.9 Anemia, unspecified; R10.2 Pelvic and perineal pain; Z79.899 Other long term (current) drug therapy
CPT/HCPCS: 36415; 51702; 51798; 76775; 80048; 80076; 81001; 82570; 83735; 83935; 84300; 85025; 87086; 99202; 99283; 99284

== ENCOUNTER → 2024-05-26 12:31 | Outpatient (BNV) | payer MEDICARE, SELFPAY | PROVIDERS: PCP Internal Medicine; Visit Provider Radiology Diagnostic Radiology | DX: N13.30 Unspecified hydronephrosis (principal); N40.0 Benign prostatic hyperplasia without lower urinary tract symptoms | CPT/HCPCS: 76775 ==

== ENCOUNTER 2024-06-01 16:05 | Outpatient (AMB) | payer BC, SELFPAY ==
--- NOTE | 2024-06-01 16:08 | HO.NEPHOV ---
Vital Signs 06/01/24 16:09 Height 6 ft Weight 181 lb BMI 24.5 BP 152/78 H Blood Pressure Location Lt brachial Position Sitting Pulse 91 Pulse Source Pulse Oximeter Pulse Oximetry (%) 99 Oxygen Delivery Method Room Air Intake Visit Reasons: INP: Hypertension/Pure hypercholesterolemia Multi Disciplined Language Analyst Required: No Accompanied by: Self / Same As Patient Allergies Sulfa (Sulfonamide Antibiotics) Allergy (Verified 06/01/24 16:12) Hives Medication List - Last Reconciled 06/01/24 by Nelson Torres MD amlodipine 10 mg PO DAILY cefuroxime axetil 250 mg PO BID 7 days tamsulosin (Flomax) 0.4 mg PO BEDTIME HPI Comments Details: Boom is a pleasant 68-year-old man who has been enjoying reasonably good health. He had a routine blood work which revealed elevated serum creatinine. He was asked to go to the ER. He was found to have acute kidney injury. Renal ultrasonogram showed bilateral hydronephrosis. He had obstructive uropathy from enlarged prostate. A Jarvis catheter was inserted and he was discharged home. Recently he was also treated with a course of Bactrim for possible UTI. This subsequently gave him a rash and he has stopped Bactrim. All the lab results were reviewed. His baseline serum creatinine is around 1.2-1.35 mg/dL up until 2022. On 11/11/2023 creatinine was 1.41 On 04/08/2024 creatinine was 2.21. On 05/23/2024 creatinine was 3.53 He was in the emergency room on 05/26/2024. Creatinine was 3.36. Potassium has been normal all along. He has mild anemia. Ramipril was stopped on 05/26/2024 At present he has a Jarvis catheter in place which is draining clear urine. He was follow up with Urology in the next few days. Review of Systems Const Denies fever(s) and Denies weight loss Card Denies chest pain Resp Denies cough and Denies hemoptysis GI Denies abdominal pain, Denies diarrhea and Denies nausea Musc Denies back pain Neuro Denies focal weakness Physical Exam Vital Signs: Last Vital Signs Pulse 91 06/01/24 16:09 BP 152/78 H 06/01/24 16:09 Pulse Ox 99 06/01/24 16:09 Oxygen Delivery Method Room Air 06/01/24 16:09 BMI result Body Mass Index 24.5 Comfortable Neck supple no JVD. Lungs entry equal no rales. Heart S1-S2 heard no gallop or rub. Abdomen soft nontender. Neuro alert awake oriented. No asterixis. Extremities no edema. Results Reviewed Nephrology Results: Hgb 11.1 g/dl (14.0-18.0) L 05/26/24 WBC 10.9 X10*3/uL (4.8-10.8) H 05/26/24 Plt Count 482 X10*3/uL (160-400) H 05/26/24 Sodium 137 mmol/L (135-145) 05/26/24 Potassium 4.2 mmol/L (3.3-5.1) 05/26/24 Chloride 106 mmol/L (96-108) 05/26/24 Carbon Dioxide 22 mmol/L (22-29) 05/26/24 BUN 55 mg/dL (9-16) H 05/26/24 Creatinine 3.36 mg/dL (0.5-1.4) H 05/26/24 Calcium 8.9 mg/dL (8.4-10.2) 05/26/24 Urine Protein Negative mg/dL (Neg-Trace) 05/26/24 Urine Creatinine 58.25 mg/dL 05/26/24 Renal US 05/26/24 Assessment & Plan Assessment & Plan (1) Renal insufficiency: Code(s): N28.9 - Disorder of kidney and ureter, unspecified Category: Medical Plan 68-year-old man with acute kidney injury due to obstructive uropathy secondary to BPH. He has underlying chronic kidney disease with a EGFR of 50-55 mL/minute. I suspect he has underlying hypertensive nephrosclerosis. Other possibilities should be ruled out as well. Recommendations Initiated workup for underlying CKD including urine protein creatinine ratio. Since the Jarvis has been inserted I expect renal function to improve I will check BUN creatinine today. In the meantime encouraged him to increase p.o. fluid intake. Continue to avoid nephrotoxic agents including NSAIDs. In the office today blood pressure was suboptimal. Ramipril has been discontinued. This is his 1st office visit therefore I am not surprised his blood pressure is slightly elevated than expected. We will monitor his blood pressure and if it stays above 140 mm Hg systolic I will add hydralazine. Continue to hold ramipril until acute kidney injury resolves. He has mild anemia this may be due to underlying CKD. Workup initiated. Further workup will be determined by the outcome of the baseline investigations. Orders: Orders Complete Blood Count Auto Diff Today N28.9 - Disorder of kidney and ureter, unspecified Comprehensive Met. Panel Today N28.9 - Disorder of kidney and ureter, unspecified Total Protein Urine Random Today N28.9 - Disorder of kidney and ureter, unspecified Parathyroid Hormone Intact Today N28.9 - Disorder of kidney and ureter, unspecified UA and rflx microscopic Today N28.9 - Disorder of kidney and ureter, unspecified Creatinine Urine Today N28.9 - Disorder of kidney and ureter, unspecified Coding Level of Care Code New Pt Level 5 (11026) Diagnoses Renal insufficiency N28.9
[2024-06-01 16:09] VITALS: BP 152/78; PULSE 91; O2SAT 99; BMI 24.5
--- OUTSIDE RECORDS SUMMARY | 2024-06-01 19:43 | XMS_ITS ---
Author Organization [facility] Address [address] [place], [place] [phone] Care Team Providers Care Process Lead Name Role Phone Marshal Cabrales Primary Care [...] Location Date Provider Diagnosis Marshal Cabrales DO [facility] [address] [place], [place] [phone] 04/17/2024 Marshal Cabrales Essential hypertensi on I10 [...]
--- OUTSIDE RECORDS SUMMARY | 2024-06-01 19:43 | XMS_ITS ---
Author Organization Marshal Cabrales DO, FACP Address [address] [place], [place] [phone] Care Team Providers Care Eeg Technician Name Role Phone Marshal Cabrales Primary Care Provider REASON FOR VISIT f/u HTN Encounters Encounter Location Date Provider Diagnosis Marshal Cabrales DO, FACP [address] [place] [phone] 04/06/2024 Marshal Cabrales PLAN OF TREATMENT No Information
--- OUTSIDE RECORDS SUMMARY | 2024-06-01 19:43 | XMS_ITS ---
Author Organization Marshal Cabrales DO, FACP Address [address] [place], [place] [phone] Care Team Providers Care Turning Sander Operator Name Role Phone Marshal Cabrales Primary Care Provider REASON FOR VISIT 1 month f/u Encounters Encounter Location Date Provider Diagnosis Marshal Cabrales DO, [facility] [address] [place] [phone] 05/26/2024 Marshal Cabrales PLAN OF TREATMENT No Information
--- OUTSIDE RECORDS SUMMARY | 2024-06-01 19:43 | XMS_ITS | Patient Health Record ---
Author Organization Marshal Cabrales DO, FAC Address [address] [place], [place] [phone] Care Team Providers Care Cone Runner Name Role Phone Marshal Cabrales Primary Care Provider [phone] ALLERGIES No Known Allergies RESULTS Component Value Reference Range Notes Complete Blood Count Auto Di ff Reviewed date:11/11/2023 10:51:08 AM Interpretation:Normal Performing Lab:[facility], [address] [place] [phone] Notes/Report: White Blood Count 7.4 4.8-10.8 X10*3/uL [...] NRBC Abs Auto 0.000 0.0-0.012 X10*3/uL Comprehensive [place]. Panel Fa st Reviewed date:11/11/2023 11:10:02 AM Interpretation:Abnormal Performing Lab:[facility], [address] [place] [phone] Notes/Report: Sodium 141 135-145 mmol/L Potassium 4.2 3.3-5.1 mmol/L Chloride 106 96-108 mmol/L Carbon Dioxide 25 22-29 mmol/L Anion Gap 14 12-20 Blood Urea Nitrogen 19 9-16 mg/dL Creatinine 1.41 0.5-1.4 mg/dL Estimated Glomerular Filt Rate 50 NOTE: For -[place] individuals, multiply the result by 1.210. Chronic [...] Panel Reviewed date:11/11/2023 11:09:41 AM Interpretation:Abnormal Performing Lab:[facility], [address] [place] [phone] Notes/Report: Triglycerides 96 <150 mg/dL Desirable Triglyceride: [...] Total Reviewed date:11/11/2023 11:08:39 AM Interpretation:Normal Performing Lab:[facility], [address] [place] [phone] Notes/Report: Vitamin D 25-OH Total 82.4 >30 [...] Hormone Reviewed date:11/11/2023 11:08:39 AM Interpretation:Normal Performing Lab:[facility], [address] [place] [phone] Notes/Report: Thyroid Stimulating Hormone 1.98 0.32-4.0 uIU/ mL TSH 3rd Generation ([facility]) Comprehensive [place]. Panel Fa st Reviewed date:04/08/2024 11:17:09 AM Interpretation:Abnormal Performing Lab:[facility], [address] [place] [phone] Notes/Report: Sodium 145 135-145 mmol/L Potassium 4.0 [...] Panel Reviewed date:04/08/2024 11:16:34 AM Interpretation:Normal Performing Lab:[facility], [address] [place] [phone] Notes/Report: Triglycerides 72 <150 mg/dL Desirable Triglyceride: [...] Problem Essential hypertensi on (I10) Active confirmed 56249653 Problem Hypercholesterolemia (E78.00) Active confirmed 07519210 Problem Dysphagia, unspecifi ed type (R13.10) Active confirmed 36954250 VITAL SIGNS Blood pressure diastolic 78 mm Hg 01/14/2024 Height 72 in 01/14/2024 Blood pressure systolic 130 mm Hg 01/14/2024 Weight 184 lbs 01/14/2024 BMI 24.95 kg/m2 01/14/2024 Encounters Encounter Location Date Provider Diagnosis Marshal Cabrales DO, [address] [phone] 08/07/2023 Marshal Cabrales Encounter for genera l adult medical examination without abnormal findings Z00.00 ; Essential hypertension I10 and Hypercholesterolemia E78.00 Marshal Cabrales DO, FACP [address] [place], [place] [phone] 11/13/2023 Marshal Cabrales Essential hypertensi on I10 and Hypercholesterolemia E78.00 Marshal Brennan Keron , [facility] [address] [place], [place] [phone] 01/14/2024 Marshal Cabrales Essential hypertensi on I10 and Hypercholesterolemia E78.00 Marshal Mika Keron [facility], [facility] [address] [place], [place] [phone] 03/31/2024 Marshal Cabrales Marshal Brennan Keron , [facility] [address] [place], [place] [id number] 05/26/2024 Marshal Keron Marshal Brennan Keron , [facility] [address] [place], [place] [id number] 02/28/2024 Marshal Cabrales Essential hypertensi on I10 Marshal Mika Keron [facility], [facility] [address] [place], [place] [id number] 04/06/2024 Marshal Cabrales Marshal Brennan Keron [facility], [facility] [address] [place], [place] [phone] 04/17/2024 Marshal Cabrales Essential hypertensi on I10 ; Hypercholesterolemia E78.00 ; Elevated PSA R97.20 and Renal insufficiency N28.9 Marshal Brennan Keron [facility], [facility] [address] [place], [place] [phone] 01/11/2024 Marshal Cabrales ASSESSMENTS Encounter Date Diagnosis Assessment Notes Treatment Notes Treatment Clinical Notes 08/07/2023 Encounter for [facility] adult medical examination without abnormal findings (ICD-10 [...] [employer] [address] [place], [place] [phone] [id number] Boom Hinojosa Self - patient is the insured MEDICAL (GENERAL) HISTORY Medical History History ICD Code hypertension basal cell carcinoma scoliosis Elevated PSA R97.20 Surgical History Surgery Date(Month/Year) tonsillectomy wisdom teeth extraction left wrist lump removal lasik surgery OU basal cell carcinoma resection
== END 2024-06-01 16:39 | disposition home or self-care (01) ==
PROVIDERS: PCP Internal Medicine; Referring Provider Physician Assistant Medical; Visit Provider Internal Medicine Hypertension Specialist
DX: N17.9 Acute kidney failure, unspecified (principal); N40.1 Benign prostatic hyperplasia with lower urinary tract symptoms; N13.8 Other obstructive and reflux uropathy
CPT/HCPCS: 99205

== ENCOUNTER 2024-06-01 16:05 | Outpatient (REF) | payer BC, SELFPAY ==
[2024-06-01 17:03] LABS: MANUAL DIFF FLAG NO
[2024-06-01 17:58] LABS: Appearance Urine Clear; Color Urine Yellow; Glucose Urine UA Negative (Negative); Leukocyte Esterase Urine Small (1+) (Negative); Nitrite Urine Negative (Negative); PH 5.5 (5.0-9.0); UMIC TRIGGER UA YES; Urine Blood Large (3+) (Negative); Urine Ketones Negative (Negative); Urine Protein 100 (2+) mg/dL (Neg-Trace)
[2024-06-01 17:58] LABS: Basophils Absolute Auto 0.2 X10*3/uL (0.0-0.2); Basophils Percent Auto 1.5 % (0-2); Eosinophils Absolute Auto 0.4 X10*3/uL (0.0-0.4); Eosinophils Percent Auto 3.2 % (0-4); Hematocrit 32.1 % (42.0-52.0); Hemoglobin 10.9 g/dl (14.0-18.0); Imm Gran Abs Auto 0.08 X10*3/uL (0.00-0.03); Imm Gran Pct Auto 0.7 % (0.0-0.4); Lymphocytes Absolute Auto 1.7 X10*3/uL (1.2-4.9); Mean Corpuscular Hemoglobin 31.3 pg (27.0-33.0); Mean Corpuscular Volume 92.2 fL (80.0-98.0); Mean Platelet Volume 9.1 fL (9.4-12.4); Monocytes Absolute Auto 0.7 X10*3/uL (0.1-1.2); Monocytes Percent Auto 6.2 % (2-11); Neutrophils Absolute Auto 7.8 x10*3/uL (2.0-8.3); Neutrophils Percent Auto 72.4 % (45-73); Platelet Count 485 X10*3/uL (160-400); Red Blood Count 3.48 X10*6/uL (4.60-5.80); Red Cell Distribution Width 13.1 % (11.0-16.0); White Blood Count 10.8 X10*3/uL (4.8-10.8)
[2024-06-01 18:03] LABS: Bacteria Urine None Seen (None Seen); RBC Urine >20 /HPF (0-2); Squamous Epithelial Cell Urine 0-2 /HPF (0-2)
[2024-06-01 18:25] LABS: Alanine Aminotransferase 19 U/L (0-40); Albumin Level 4.5 g/dL (3.5-5.0); Alkaline Phosphatase 71 U/L (39-117); Anion Gap 11 (12-20); Aspartate Amino Transferase 25 U/L (5-37); Bilirubin Total 0.4 mg/dL (0.0-1.0); Blood Urea Nitrogen 33 mg/dL (9-16); Calcium 9.5 mg/dL (8.4-10.2); Carbon Dioxide 26 mmol/L (22-29); Chloride 104 mmol/L (96-108); Estimated Glomerular Filt Rate 31; Glucose Random 104 mg/dL (60-115); Potassium 4.3 mmol/L (3.3-5.1); Sodium 137 mmol/L (135-145); Total Protein 7.4 g/dL (6.5-8.0)
[2024-06-01 18:29] LABS: Creatinine Urine 71.17 mg/dL; Total Protein Urine Random 129 mg/dL (<12)
[2024-06-01 18:30] LABS: Parathyroid Hormone Intact 111.6 pg/mL (8.7-77.1)
== END 2024-06-01 16:06 | disposition home or self-care (01) ==
LOC: HO.LAB 16:05
PROVIDERS: PCP Internal Medicine; Referring Provider Physician Assistant Medical; Visit Provider Internal Medicine Hypertension Specialist
DX: N28.9 Disorder of kidney and ureter, unspecified (principal)
CPT/HCPCS: 36415; 80053; 81001; 82570; 83970; 84156; 85025

== ENCOUNTER 2024-06-02 09:33 | Outpatient (AMB) | payer BC, SELFPAY ==
--- NOTE | 2024-06-02 09:38 | MHC.PC.OV ---
Vital Signs 06/02/24 09:42 Weight 180 lb BP 126/72 Blood Pressure Location Rt brachial Pulse 81 Pulse Source Pulse Oximeter Pulse Oximetry (%) 99 Intake Visit Reasons: 1 week follow Allergies Sulfa (Sulfonamide Antibiotics) Allergy (Verified 06/02/24 10:39) Hives Medication List - Last Reconciled 06/02/24 by Liliana Johnson PA-C amlodipine 10 mg PO DAILY cefuroxime axetil 250 mg PO BID 7 days tamsulosin (Flomax) 0.4 mg PO BEDTIME [facility] Medical History Hypertension Basal cell carcinoma Scoliosis Elevated PSA Renal insufficiency Mild hypercholesterolemia Physical exam (Primary Care) Vital Signs: Last Vital Signs Pulse 81 06/02/24 09:42 BP 126/72 06/02/24 09:42 Pulse Ox 99 06/02/24 09:42 Care Plan Goal for BP management: <130/80 at goal today Coding Level of Care Code Est Pt Level 4 (35413) Complex EM visit Add On G2211 Diagnoses CKD (chronic kidney disease) N18.9 Renal insufficiency N28.9 Mild hypercholesterolemia E78.00 Elevated PSA R97.20 Hypertension I10 Assessment & Plan Assessment & Plan (1) CKD (chronic kidney disease): Code(s): N18.9 - Chronic kidney disease, unspecified Category: Medical Plan: Baseline creatinine 1.12-1.35 at today's visit his BUN and creatinine are 33/2.14 which is improved. Condition is chronic and stable will continue to monitor. (2) Renal insufficiency: Code(s): N28.9 - Disorder of kidney and ureter, unspecified Category: Medical (3) Mild hypercholesterolemia: Code(s): E78.00 - Pure hypercholesterolemia, unspecified Category: Medical Plan: Condition is chronic and stable will continue to monitor. (4) Elevated PSA: Code(s): R97.20 - Elevated prostate specific antigen [PSA] Category: Medical Plan: Patient currently on Flomax being followed by urology has follow-up tomorrow with Filiberto martinez her at [facility]. Condition is chronic and stable continue to monitor. (5) Hypertension: Code(s): I10 - Essential (primary) hypertension Category: Medical Plan: Patient currently on amlodipine 10 mg daily blood pressure within goal today. Condition is chronic and stable will continue to monitor and keep current antihypertensive regimen and reassess in 2 weeks when patient returns. Plan Plan - Monitor renal function with follow-up in two weeks and reassess through laboratory studies. - Continue current antihypertensive regimen with Amlodipine, considering current blood pressure control measures. - Ensure the completion of Flomax and antibiotic therapy as previously prescribed. - Arrange for follow-up with urology tomorrow to assess catheter removal readiness and potential office-based procedures if obstruction persists. - Re-evaluation of urinary tract symptoms to assess for hematuria persistence and further management. Patient Instructions: Patient Instructions - Complete your current antibiotic course as directed for urinary tract infection. - Continue taking Flomax daily to manage prostatic symptoms. - Refrain from strenuous activities that may exacerbate catheter discomfort. - Follow-up with urology as scheduled to evaluate catheter removal and potential procedures. - Monitor and record blood pressure regularly, and report any significant changes to healthcare provider. - Contact the office if experiencing any increased pain, fever, or unexpected symptoms. Scribe Plan - Not visible on output: History of Present Illness The patient is a 68-year-old male presenting with follow-up from last week's visit after he was sent to the emergency department due to concerns of MOOK on CKD with possibly thoughts of UTI. When the patient was seen at the emergency department on 05/26/2024 he had labs with a BUN of 55 creatinine of 3.36 which was increased from his baseline which was 1.2-1.35 in November of 2023. They started him on IV fluids, IV antibiotics placed a Jarvis catheter due to enlarged prostate causing hydronephrosis to bilateral kidneys and urinary retention. Then patient was discharge him home with Flomax and antibiotics. He reports he has his last dose of antibiotics tomorrow. He was reported to continue taking Flomax for at least 30 days daily. He reports he followed up with Dr. Torres yesterday and had outpatient labs. Patient reports he has an appointment with the client service supervisor again Dr. Torres in 1 month. Patient reports he has an appointment tomorrow with the urologist Dr. Filiberto Page from [facility]. At today's visit when reviewing the patient's labs it appears that his serum creatinine has improved and it is now 2.14 with a BUN of 33. Blood pressure management has been modified, with a recent measurement at 126/72 mmHg, indicating stability without additional medications. Review of Systems - Genitourinary: Reports blood in urine, discomfort from catheter placement. - Cardiovascular: Denies any change in blood pressure symptoms. - Neurological: Denies any new neurological symptoms. - Gastrointestinal: Denies abdominal or gastrointestinal pain currently. - General: Denies fever or systemic illness. Physical Exam Appearance: Alert. Oriented X3. No acute distress. Head: Normal external exam. Normocephalic. Atraumatic. Eyes: Pupils are equal, round, and reactive to light. Extraocular movements intact. Conjunctiva and sclera normal. Eyelids normal. Ears: External auditory canal normal. Tympanic membranes normal. Throat: Pharynx normal. Uvula midline. Moist mucous membranes. Neck: Normal inspection. Neck supple. Full range of motion. No meningeal signs. No neck mass noted. Cardiovascular: Normal heart rate and rhythm. Respiratory: No respiratory distress. Painless inspiration. Abdomen: Soft and nontender. Bowel sounds normal in all 4 quadrants. No distention noted. No organomegaly noted. No visible injury noted. Back: No costovertebral angle tenderness. Full range of motion noted. Skin: Skin warm and dry. Normal skin color. Normal skin turgor. No rashes/lesions/lacerations noted. Extremities: Extremities exhibit normal range of motion. Extremities nontender. Neuro: Oriented X 3. No motor deficit. No sensory deficit. Reflexes normal. Results - Labs: Initial creatinine level at 3.36 mg/dL, current level at 2.14 mg/dL. Plan - Monitor renal function with follow-up in two weeks and reassess through laboratory studies. - Continue current antihypertensive regimen with Amlodipine, considering current blood pressure control measures. - Ensure the completion of Flomax and antibiotic therapy as previously prescribed. - Arrange for follow-up with urology tomorrow to assess catheter removal readiness and potential office-based procedures if obstruction persists. - Re-evaluation of urinary tract symptoms to assess for hematuria persistence and further management. Patient was informed and verbally consented to the use of an ambient scribe for clinic note documentation during this visit. Discussion Notes During the visit, I discussed with the patient the improvement in renal function as evidenced by lowering creatinine levels. We reviewed the management of urinary tract infection and benign prostatic hyperplasia, including current medications such as Flomax and antibiotics. I advised on continued monitoring of blood pressure, avoiding changes in medication since the blood pressure readings are satisfactory. Risks associated with infection recurrence and catheter removal complications were outlined, emphasizing timely consultation with urology. We also discussed avoiding emergency room visits unless absolutely necessary and the importance of follow-up appointments for coordinated care. Patient Instructions - Complete your current antibiotic course as directed for urinary tract infection. - Continue taking Flomax daily to manage prostatic symptoms. - Refrain from strenuous activities that may exacerbate catheter discomfort. - Follow-up with urology as scheduled to evaluate catheter removal and potential procedures. - Monitor and record blood pressure regularly, and report any significant changes to healthcare provider. - Contact the office if experiencing any increased pain, fever, or unexpected symptoms.
[2024-06-02 09:42] VITALS: BP 126/72; PULSE 81; O2SAT 99
--- OUTSIDE RECORDS SUMMARY | 2024-06-02 10:05 | XMS_ITS ---
Author Organization Marshal Cabrales DO, FACP Address [address] [place], [place] [phone] Care Team Providers Care Advanced Quality Engineer Name Role Phone Marshal Cabrales Primary Care Provider [phone] REASON FOR VISIT f/u HTN Encounters Encounter Location Date Provider Diagnosis Marshal Cabrales DO, FACP [address] [place] [phone] 04/06/2024 Marshal Cabrales PLAN OF TREATMENT No Information
--- OUTSIDE RECORDS SUMMARY | 2024-06-02 10:05 | XMS_ITS ---
Author Organization Marshal Cabrales DO, FACP Address [address] [place], [place] [phone] Care Team Providers Care Emergency Medicine Physician Assistant Name Role Phone Marshal Cabrales Primary Care Provider REASON FOR VISIT 1 month f/u Encounters Encounter Location Date Provider Diagnosis Marshal Cabrales DO, [facility] [address] [place] [phone] 05/26/2024 Marshal Cabrales PLAN OF TREATMENT No Information
== END 2024-06-02 10:11 | disposition home or self-care (01) ==
LOC: HO.HMCSH 09:33
PROVIDERS: PCP Internal Medicine; Visit Provider Physician Assistant Medical
DX: I12.9 Hypertensive chronic kidney disease with stage 1 through stage 4 chronic kidney disease, or unspecified chronic kidney disease (principal); N28.9 Disorder of kidney and ureter, unspecified; N18.9 Chronic kidney disease, unspecified; E78.00 Pure hypercholesterolemia, unspecified; R97.20 Elevated prostate specific antigen [PSA]

== ENCOUNTER 2024-06-16 09:46 | Outpatient (AMB) | payer BC, SELFPAY ==
--- NOTE | 2024-06-16 09:47 | A.OFFPC_ITS ---
Vital Signs 06/16/24 09:57 Height 6 ft Weight 82 lb BMI 11.1 BP 152/72 H Blood Pressure Location Rt brachial Pulse 81 Pulse Source Pulse Oximeter Temp 97.3 F Pulse Oximetry (%) 98 Intake Visit Reasons: 2 week follow up Intake Note: no other issues Allergies Sulfa (Sulfonamide Antibiotics) Allergy (Verified 06/16/24 10:38) Hives Medication List - Last Reconciled 06/16/24 by Liliana Johnson PA-C amlodipine 10 mg PO DAILY tamsulosin (Flomax) 0.4 mg PO BEDTIME PFSH Medical History Obstructed, uropathy Intermittent self-catheterization of bladder Enlarged prostate Bilateral hydronephrosis Hypertension Basal cell carcinoma Scoliosis Elevated PSA Renal insufficiency Mild hypercholesterolemia Physical exam (Primary Care) Vital Signs: Last Vital Signs Temp 97.3 F 06/16/24 09:57 Pulse 81 06/16/24 09:57 BP 152/72 H 06/16/24 09:57 Pulse Ox 98 06/16/24 09:57 Care Plan Goal for BP management: 130/80 if blood pressure continues to be elevated at next visit in 1 month patient will be started on hydralazine BMI result Body Mass Index 11.1 Coding Level of Care Code Est Pt Level 4 (50351) Complex EM visit Add On G2211 Diagnoses CKD (chronic kidney disease) N18.9 Bilateral hydronephrosis N13.30 Enlarged prostate N40.0 Obstructed, uropathy N13.9 Intermittent self-catheterization of bladder Z78.9 Elevated PSA R97.20 Hypertension I10 Assessment & Plan Assessment & Plan (1) CKD (chronic kidney disease): Code(s): N18.9 - Chronic kidney disease, unspecified Category: Medical Plan: On 11/11/2023 creatinine was 1.41 On 04/08/2024 creatinine was 2.21. On 05/23/2024 creatinine was 3.53 On 05/26/2024 creatinine was 3.36 On 06/01/2024 creatinine was 2.1 Patient being followed by Dr. Torres for Nephrology seen on 06/01/2024. They recommended increasing p.o. fluid intake. Continue to avoid nephrotoxic agents including NSAIDs. They recommended to not restart ramipril and if systolic blood pressure stays above 140 mmHg systolic we to add hydralazine. Condition is chronic and stable continue to monitor. (2) Bilateral hydronephrosis: Code(s): N13.30 - Unspecified hydronephrosis Category: Medical Plan: Patient being followed by Urology Dr. Page in [place]. Is currently self catheterizing without any complications. Has follow-up on Saturday for cystoscopy. Condition is chronic and stable continue to monitor. (3) Enlarged prostate: Code(s): N40.0 - Benign prostatic hyperplasia without lower urinary tract symptoms Category: Medical Plan: Patient being followed by Urology Dr. Page in [place]. Is currently self catheterizing without any complications. Has follow-up on Saturday for cystoscopy. Condition is chronic and stable continue to monitor. (4) Obstructed, uropathy: Code(s): N13.9 - Obstructive and reflux uropathy, unspecified Category: Medical Plan: Patient being followed by Urology Dr. Page in [place]. Is currently self catheterizing without any complications. Has follow-up on Saturday for cystoscopy. Condition is chronic and stable continue to monitor. (5) Intermittent self-catheterization of bladder: Code(s): Z78.9 - Other specified health status Category: Medical Plan: Patient being followed by Urology Dr. Page in [place]. Is currently self catheterizing without any complications. Has follow-up on Saturday for cystoscopy. Condition is chronic and stable continue to monitor. (6) Elevated PSA: Code(s): R97.20 - Elevated prostate specific antigen [PSA] Category: Medical Plan: Patient being followed by Urology Dr. Page in [place]. Is currently self catheterizing without any complications. Has follow-up on Saturday for cystoscopy. Condition is chronic and stable continue to monitor. (7) Hypertension: Code(s): I10 - Essential (primary) hypertension Category: Medical Plan: We increase the patient's amlodipine from 5 mg to 10 mg daily. If systolic blood pressure remains over 140 mmHg will consider hydralazine as Nephrology recommended. Condition is chronic and stable continue to monitor. Plan Plan - Continue self-catheterization as instructed. - Take Tamsulosin as prescribed and monitor urinary symptoms. - Keep a log of home blood pressure readings and report any consistently elevated results. - Attend upcoming urology appointment for cystoscopy. - Reach out to office if experiencing acute urinary symptoms or significant blood pressure changes. - Plan travel arrangements, ensuring medical supplies for self-catheterization are accessible and securely packed. Medications: Changed From amlodipine 10 mg PO DAILY To amlodipine 10 mg PO DAILY 90 tabs 1RF Refilled tamsulosin (Flomax) 0.4 mg PO BEDTIME 30 caps 0RF Patient Instructions: Patient Instructions - Continue self-catheterization as instructed. - Take Tamsulosin as prescribed and monitor urinary symptoms. - Keep a log of home blood pressure readings and report any consistently elevated results. - Attend upcoming urology appointment for cystoscopy. - Reach out to office if experiencing acute urinary symptoms or significant blood pressure changes. - Plan travel arrangements, ensuring medical supplies for self-catheterization are accessible and securely packed. Scribe Plan - Not visible on output: History of Present Illness The patient is a 68-year-old male presenting with chronic urinary retention and benign prostatic hyperplasia. Patient was a patient of Dr. Cabrales office was seen on 05/26/2024 for follow-up visit and noted to have MOOK on CKD. He was recently prescribed Bactrim for UTI and had discontinued after 3 days due to a rash. He was then sent to the emergency department at that visit due to his kidney function went from a creatinine of 1.41 in November of 2023 to 3.36 on 05/26/2024. He was seen at [facility] Emergency Department where they had to place a Jarvis catheter. Patient then followed up with Urology 06/05/[address] Page at [facility] urology in [place] and at that visit Subsequently, the Jarvis catheter was removed, and the patient was advised to self-catheterize four times daily due to persistent blockage. This continuation of the condition necessitated self-catheterization despite initial discomfort and anxiety, which has since become manageable. The patient has been using Tamsulosin (Flomax) to aid urination, resulting in some improvement, allowing occasional spontaneous voiding in the morning, though residual volume remains significant. An ultrasound revealed incomplete bladder emptying, necessitating a cystoscopy for further evaluation this week. Previous diagnostic evaluations highlighted elevated PSA levels, prompting further investigation with a biopsy, which returned normal previously. Hypertension is another significant issue; the patient's blood pressure remains elevated despite current therapies of amlodipine 10 mg, and modifications to his antihypertensive regimen are under consideration. Patient was seen by Dr. Torres the solution sales senior executive who recommended avoiding any NSAIDs and not restarting ramipril. Dr. Torres recommended starting the patient on hydralazine if the patient's systolic blood pressure continues to stay over [address] It appears that Dr. Torres ordered a PTH level. Recent laboratory work showed an elevated PTH, the implications of which are pending further specialist input. Patient is unsure when his follow-up with Nephrology/Dr. Torres is. Social History - Retired in November 2022. - Adjusted Medicare tax due to penitentiary and income changes. - Reports functional status as mobile and engages in daily activities. - Expresses feelings of stress related to family situations, including concerns about his son?s mental health. Review of Systems - Genitourinary: Reports urinary retention and need for self-catheterization. - Cardiovascular: Denies chest pain or palpitations but reports elevated blood pressure readings. Physical Exam Appearance: Alert. Oriented X3. No acute distress. Head: Normal external exam. Normocephalic. Atraumatic. Eyes: Pupils are equal, round, and reactive to light. Extraocular movements intact. Conjunctiva and sclera normal. Eyelids normal. Neck: Normal inspection. Neck supple. Full range of motion. Cardiovascular: Normal heart rate and rhythm. Heart sound normal. No murmurs noted. Pulses normal throughout. Respiratory: No respiratory distress. Painless inspiration. Abdomen: Soft and nontender. No organomegaly noted. Back: No costovertebral angle tenderness. Full range of motion noted. Skin: Skin warm and dry. Normal skin color. Normal skin turgor. No rashes/lesions/lacerations noted. Extremities: Extremities exhibit normal range of motion. Extremities nontender. Neuro: Oriented X 3. No motor deficit. No sensory deficit. Reflexes normal. Plan - Continue self-catheterization as instructed. - Take Tamsulosin as prescribed and monitor urinary symptoms. - Keep a log of home blood pressure readings and report any consistently elevated results. - Attend upcoming urology appointment for cystoscopy. - Reach out to office if experiencing acute urinary symptoms or significant blood pressure changes. - Plan travel arrangements, ensuring medical supplies for self-catheterization are accessible and securely packed. Patient was informed and verbally consented to the use of an ambient scribe for clinic note documentation during this visit. Discussion Notes I discussed with the patient the management plan for his chronic urinary retention and hypertension, emphasizing the need for continued monitoring of blood pressure and self-catheterization as interim solutions until urologic evaluation provides further direction. We discussed potential surgical intervention timelines post-cystoscopy, acknowledging the importance of family commitments, such as his intention to attend his son?s graduation. The implications of PSA and PTH elevations were reviewed, with a consensus reached on monitoring these levels and seeking specialist advice where necessary. The plan to potentially introduce Hydralazine was considered, with an agreement to confirm with urological outcomes. Patient Instructions - Continue self-catheterization as instructed. - Take Tamsulosin as prescribed and monitor urinary symptoms. - Keep a log of home blood pressure readings and report any consistently elevated results. - Attend upcoming urology appointment for cystoscopy. - Reach out to office if experiencing acute urinary symptoms or significant blood pressure changes. - Plan travel arrangements, ensuring medical supplies for self-catheterization are accessible and securely packed.
[2024-06-16 09:57] VITALS: BP 152/72; PULSE 81; TEMP 36.3; O2SAT 98; BMI 11.1
--- OUTSIDE RECORDS SUMMARY | 2024-06-16 10:54 | XMS_ITS ---
Author Organization Marshal Cabrales DO, FACP Address [address] [place], [place] [phone] Care Team Providers Care Seamstress Fitter Name Role Phone Marshal Cabrales Primary Care Provider REASON FOR VISIT f/u HTN Encounters Encounter Location Date Provider Diagnosis Marshal Cabrales DO, FACP [address] [place] [id number] 04/06/2024 Marshal Cabrales PLAN OF TREATMENT No Information
--- OUTSIDE RECORDS SUMMARY | 2024-06-16 10:54 | XMS_ITS ---
Author Organization Marshal Cabrales DO [facility] Address [address] [place], [place] [phone] Care Team Providers Care Plumbing Engineering Draftsperson Name Role Phone Marshal Cabrales Primary Care Provider [phone] ALLERGIES No Known Allergies REASON FOR VISIT [...] Location Date Provider Diagnosis Marshal Cabrales DO [facility] [address] [place], [place] [phone] 04/17/2024 Marshal Cabrales Essential hypertensi on I10 [...]
--- OUTSIDE RECORDS SUMMARY | 2024-06-16 10:55 | XMS_ITS ---
Author Organization Marshal Cabrales DO, FACP Address [address] [place], [place] [id number] Care Team Providers Care Ornament Stapler Name Role Phone Marshal Cabrales Primary Care Provider REASON FOR VISIT 1 month f/u Encounters Encounter Location Date Provider Diagnosis Marshal Cabrales DO, [facility] [address] [place] [phone] 05/26/2024 Marshal Cabrales PLAN OF TREATMENT No Information
--- OUTSIDE RECORDS SUMMARY | 2024-06-16 10:55 | XMS_ITS | Patient Health Record ---
Author Organization Marshal Cabrales DO, FAC Address [address] [place], [place] [phone] Care Team Providers Care Vp Construction Name Role Phone Marshal Cabrales Primary Care Provider ALLERGIES No Known Allergies RESULTS Component Value Reference Range Notes Complete Blood Count Auto Di ff Reviewed date:11/11/2023 10:51:08 AM Interpretation:Normal Performing Lab:[facility], [address] [place] [phone] Notes/Report: White Blood Count 7.4 4.8-10.8 X10*3/uL [...] NRBC Abs Auto 0.000 0.0-0.012 X10*3/uL Comprehensive [place]. Panel Fa st Reviewed date:11/11/2023 11:10:02 AM Interpretation:Abnormal Performing Lab:[facility], [address] [place] [phone] Notes/Report: Sodium 141 135-145 mmol/L Potassium 4.2 3.3-5.1 mmol/L Chloride 106 96-108 mmol/L Carbon Dioxide 25 22-29 mmol/L Anion Gap 14 12-20 Blood Urea Nitrogen 19 9-16 mg/dL Creatinine 1.41 0.5-1.4 mg/dL Estimated Glomerular Filt Rate 50 NOTE: For -[place] individuals, multiply the result by 1.210. Chronic [...] Panel Reviewed date:11/11/2023 11:09:41 AM Interpretation:Abnormal Performing Lab:[facility], [address] [place] [phone] Notes/Report: Triglycerides 96 <150 mg/dL Desirable Triglyceride: [...] Total Reviewed date:11/11/2023 11:08:39 AM Interpretation:Normal Performing Lab:[facility], [address] [place] [phone] Notes/Report: Vitamin D 25-OH Total 82.4 >30 [...] Hormone Reviewed date:11/11/2023 11:08:39 AM Interpretation:Normal Performing Lab:[facility], [address] [place] [phone] Notes/Report: Thyroid Stimulating Hormone 1.98 0.32-4.0 uIU/ mL TSH 3rd Generation ([facility]) Comprehensive [place]. Panel Fa st Reviewed date:04/08/2024 11:17:09 AM Interpretation:Abnormal Performing Lab:[facility], [address] [place] [phone] Notes/Report: Sodium 145 135-145 mmol/L Potassium 4.0 [...] Panel Reviewed date:04/08/2024 11:16:34 AM Interpretation:Normal Performing Lab:[facility], [address] [place] [phone] Notes/Report: Triglycerides 72 <150 mg/dL Desirable Triglyceride: [...] Problem Essential hypertensi on (I10) Active confirmed 03347904 Problem Hypercholesterolemia (E78.00) Active confirmed 09816860 Problem Dysphagia, unspecifi ed type (R13.10) Active confirmed 16412543 VITAL SIGNS Blood pressure diastolic 78 mm Hg 01/14/2024 Height 72 in 01/14/2024 Blood pressure systolic 130 mm Hg 01/14/2024 Weight 184 lbs 01/14/2024 BMI 24.95 kg/m2 01/14/2024 Encounters Encounter Location Date Provider Diagnosis Marshal Cabrales DO, [address] [phone] 08/07/2023 Marshal Cabrales Encounter for genera l adult medical examination without abnormal findings Z00.00 ; Essential hypertension I10 and Hypercholesterolemia E78.00 Marshal Cabrales DO, FACP [address] [place], [place] [phone] 11/13/2023 Marshal Cabrales Essential hypertensi on I10 and Hypercholesterolemia E78.00 Marshal Brennan Keron , [facility] [address] [place], [place] [id number] 01/14/2024 Marshal Cabrales Essential hypertensi on I10 and Hypercholesterolemia E78.00 Marshal Mika Keron [facility], [facility] [address] [place], [place] [id number] 03/31/2024 Marshal Cabrales Marshal Brennan Keron , [facility] [address] [place], [place] [id number] 05/26/2024 Marshal Keron Marshal Brennan Keron , [facility] [address] [place], [place] [id number] 02/28/2024 Marshal Cabrales Essential hypertensi on I10 Marshal Mika Keron [facility] [address] [place], [place] [phone] 04/06/2024 Marshal Cabrales Marshal Brennan Keron [facility] [address] [place], [place] [id number] 04/17/2024 Marshal Cabrales Essential hypertensi on I10 ; Hypercholesterolemia E78.00 ; Elevated PSA R97.20 and Renal insufficiency N28.9 Marshal Brennan Keron [facility] [address] [place], [place] [phone] 01/11/2024 Marshal Cabrales ASSESSMENTS Encounter Date Diagnosis Assessment Notes Treatment Notes Treatment Clinical Notes 08/07/2023 Encounter for [facility] adult medical examination without abnormal [...] [employer] MEDICARE [address] [place], [place] [phone] [id number] Boom Hinojosa Self - patient is the insured MEDICAL (GENERAL) HISTORY Medical History History ICD Code hypertension basal cell carcinoma scoliosis Elevated PSA R97.20 Surgical History Surgery Date(Month/Year) tonsillectomy wisdom teeth extraction left wrist lump removal lasik surgery [facility] basal cell carcinoma resection
== END 2024-06-16 10:41 | disposition home or self-care (01) ==
LOC: HO.HMCSH 09:46
PROVIDERS: PCP Internal Medicine; Visit Provider Physician Assistant Medical
DX: I12.9 Hypertensive chronic kidney disease with stage 1 through stage 4 chronic kidney disease, or unspecified chronic kidney disease (principal); N18.9 Chronic kidney disease, unspecified; N13.30 Unspecified hydronephrosis; N40.0 Benign prostatic hyperplasia without lower urinary tract symptoms; N13.9 Obstructive and reflux uropathy, unspecified; Z78.9 Other specified health status; R97.20 Elevated prostate specific antigen [PSA]

== ENCOUNTER 2024-07-22 09:29 | Outpatient (AMB) | payer BC, SELFPAY ==
--- NOTE | 2024-07-22 09:31 | A.OFFPC_ITS ---
Vital Signs 07/22/24 09:36 Height 6 ft Weight 181 lb BMI 24.5 BP 142/64 H Blood Pressure Location Rt brachial Pulse 86 Pulse Source Pulse Oximeter Temp 97.2 F Pulse Oximetry (%) 100 Intake Visit Reasons: follow up Intake Note: no other issues Allergies Sulfa (Sulfonamide Antibiotics) Allergy (Verified 07/22/24 12:41) Hives Medication List - Last Reconciled 07/22/24 by Liliana Johnson PA-C amlodipine 10 mg PO DAILY coenzyme Q10 200 mg PO DAILY multivitamin with minerals 1 cap PO DAILY omega-3 fatty acids-fish oil 360-1,200 mg (Fish Oil) 2 caps PO DAILY Saccharomyces boulardii (Daily Probiotic (S. boulardii)) 250 mg PO BID tamsulosin (Flomax) 0.4 mg PO BEDTIME PFSH Medical History (Updated 07/22/24 @ 12:51 by Liliana Johnson PA-C) Elevated parathyroid hormone BPH loc w/o ur obs/LUTS Intermittent self-catheterization of bladder Obstructed, uropathy Enlarged prostate Bilateral hydronephrosis Hypertension Basal cell carcinoma Scoliosis Elevated PSA Renal insufficiency Mild hypercholesterolemia Surgical History (Updated 07/22/24 @ 12:46 by Liliana Johnson PA-C) S/P TURP Physical exam (Primary Care) Vital Signs: Last Vital Signs Temp 97.2 F 07/22/24 09:36 Pulse 86 07/22/24 09:36 BP 142/64 H 07/22/24 09:36 Pulse Ox 100 07/22/24 09:36 Care Plan Goal for BP management: <130/80 will continue current regimen at this time of amlodipine 10 mg daily. Patient to continue monitor his blood pressure due to at home his blood pressure is at 130/80. BMI result Body Mass Index 24.5 normal bmi Coding Level of Care Code Est Pt Level 4 (56424) Complex EM visit Add On G2211 Diagnoses BPH loc w/o ur obs/LUTS N40.0 S/P TURP Z90.79 Hypertension I10 Elevated PSA R97.20 Mild hypercholesterolemia E78.00 CKD (chronic kidney disease) N18.9 Elevated parathyroid hormone R79.89 Assessment & Plan Assessment & Plan (1) BPH loc w/o ur obs/LUTS: Comment: s/p TURP. BEING FOLLOWED BY [facility], CARMELA FRANKLIN PA-C Code(s): N40.0 - Benign prostatic hyperplasia without lower urinary tract symptoms Category: Medical Plan: Patient no longer has a self catheterization status post TURP procedure. Being followed by [facility] and has follow-up this Saturday. Will repeat CBC, CMP to assess patient's kidney function. Otherwise condition is chronic and stable continue to monitor. (2) S/P TURP: Code(s): Z90.79 - Acquired absence of other genital organ(s) Category: Surgical Plan: Being followed by urology has follow-up this Saturday. Condition is improved his BPH will continue to monitor (3) Hypertension: Code(s): I10 - Essential (primary) hypertension Category: Medical Plan: Blood pressure mildly elevated today at 142/64. Will continue current regimen with amlodipine 10 mg daily. Condition is chronic and stable continue to monitor. (4) Elevated PSA: Code(s): R97.20 - Elevated prostate specific antigen [PSA] Category: Medical Plan: Patient awaiting biopsy with Urology. Condition is chronic and stable continue to monitor. (5) Mild hypercholesterolemia: Code(s): E78.00 - Pure hypercholesterolemia, unspecified Category: Medical Plan: TC Goal <200. Triglycerides Goal <150. LDL Goal <100. HDL Goal >40. Patient to continue coenzyme Q10 200 mg, multivitamin, [place] 3 fish oil, daily probiotic. Condition is chronic and stable continue to monitor (6) CKD (chronic kidney disease): Code(s): N18.9 - Chronic kidney disease, unspecified Category: Medical Plan: On 11/11/2023 creatinine was 1.41 On 04/08/2024 creatinine was 2.21. On 05/23/2024 creatinine was 3.53 On 05/26/2024 creatinine was 3.36 On 06/01/2024 creatinine was 2.14 Patient is currently being followed by Dr. Torres from Nephrology. They recommended increasing p.o. fluid intake. Continue to avoid nephrotoxic agents including NSAIDs. They recommended to not restart ramipril and if systolic blood pressure stays above 140 mmHg systolic we to add hydralazine. Condition is chronic and stable continue to monitor. (7) Elevated parathyroid hormone: Code(s): R79.89 - Other specified abnormal findings of blood chemistry Category: Medical Plan: Patient noted to have an elevated parathyroid hormone of 111.6. Will repeat and refer patient to endocrinology. Will continue to monitor Plan Plan Patient was informed and verbally consented to the use of an ambient scribe for clinic note documentation during this visit. 1. Benign Prostatic Hyperplasia Post-TURP follow-up with urology, ensuring improved urinary function and resolution of catheter-related issues. 2. Status Post Transurethral Resection Of The Prostate Monitor post-operative recovery with encouraged light physical activity. 3. Other specified abnormal findings of blood chemistry Repeat lab testing to determine ongoing parathyroid levels, with potential endocrinology referral. 4. Depression Offer mental health resources for managing family-related stress. 5. Hypertension Continue amlodipine 10 mg, monitor, and consider medication adjustment if required. 6. CKD Maintain monitoring through labs including CMP to evaluate post-surgery recovery. Discussion Notes During the visit, I discussed with the patient the results of his recent blood work, specifically the elevated parathyroid hormone level. We confirmed the need to repeat laboratory tests and consider referral to endocrinology if results remain high, to ensure comprehensive evaluation and management. For hypertension, I advised continuing amlodipine at 10 mg daily, with regular home blood pressure monitoring to track control. Adding hydralazine may be considered if hypertension persists at future follow-ups. I clarified that the post-surgical recovery from TURP is progressing well, and exploring physical activity like walking should be feasible. I proposed lab work, including kidney evaluations, to track improvements in renal function. Furthermore, potential sources of patient stress from family situations were acknowledged, and appropriate mental health support was suggested. Orders: Orders TSH reflex Free T4 Today Z00.00 - Encounter for general adult medical examination without abnormal findings Liver Panel Today Z00.00 - Encounter for general adult medical examination without abnormal findings Phosphorus Today Z00.00 - Encounter for general adult medical examination without abnormal findings Hemoglobin A1c Today Z00.00 - Encounter for general adult medical examination without abnormal findings Vitamin B1 Today Z00.00 - Encounter for general adult medical examination without abnormal findings Complete Blood Count Auto Diff Today Z00.00 - Encounter for general adult medical examination without abnormal findings Comprehensive Met. Panel Today Z00.00 - Encounter for general adult medical examination without abnormal findings Parathyroid Hormone Intact Today Z00.00 - Encounter for general adult medical examination without abnormal findings Vitamin B12 and Folate Today Z00.00 - Encounter for general adult medical examination without abnormal findings Vitamin D 25-OH Total Today Z00.00 - Encounter for general adult medical examination without abnormal findings Patient Instructions: Patient Instructions - Schedule and complete repeat blood work as advised. - Continue taking amlodipine 10 mg daily for blood pressure management. - Monitor blood pressure at home and maintain records. - Engage in light activities like walking as tolerated, avoiding strenuous activities until cleared. - Follow up with urology as scheduled and bring any unused catheters for donation. - Seek support or counseling resources to manage stress related to family circumstances. - Return to the office for a follow-up in three months unless new symptoms arise or advised otherwise. - Report any new unusual symptoms or drastic changes in your urinary patterns immediately. Scribe Plan - Not visible on output: History of Present Illness The patient is a 68-year-old male presenting with a follow-up for blood pressure check. He was recently diagnosed with BPH and is post-TURP recovery. He underwent a TURP procedure to address Benign Prostatic Hyperplasia and reports significant improvements in urinary function post-surgery. His urine is light yellow and flows freely, with no reported incontinence or pain. Prior to surgery, he required self-catheterization which may be causing lingering irritation. He is currently being followed by Urology. He was also seen by Nephrology and they had ordered a parathyroid hormone. When I reviewed the labs it appears that patient had an elevated parathyroid hormone. A new finding distinct from his previous health issues. No prior thyroid issues have been documented. The patient is managing hypertension with amlodipine 10 mg daily, with varying blood pressure readings reported dependent on the positioning of the measurement. Social History - Family: Discussed stress related to family member's mental health treatment, indicating involvement in family care and support. - Physical Activity: Expressed a desire to resume walking for exercise, anticipating approval for mild exercise post-surgery. Physical Exam Appearance: Alert. Oriented X3. No acute distress. Head: Normal external exam. Normocephalic. Atraumatic. Eyes: Pupils are equal, round, and reactive to light. Extraocular movements intact. Conjunctiva and sclera normal. Eyelids normal. Throat: Pharynx normal. Uvula midline. Moist mucous membranes. Neck: Normal inspection. Neck supple. Full range of motion. Cardiovascular: Normal heart rate and rhythm. Respiratory: No respiratory distress. Painless inspiration. Back: Full range of motion noted. Skin: Skin warm and dry. Normal skin color. Normal skin turgor. No rashes/lesions/lacerations noted. Extremities: Extremities exhibit normal range of motion. Extremities nontender. Neuro: Oriented X 3. No motor deficit. No sensory deficit. Reflexes normal. Results - Labs: Mild elevation in parathyroid hormone documented.
[2024-07-22 09:36] VITALS: BP 142/64; PULSE 86; TEMP 36.2; O2SAT 100; BMI 24.5
--- OUTSIDE RECORDS SUMMARY | 2024-07-22 10:28 | XMS_ITS | Clinical Summary ---
Author Organization [address] [facility] Address [address] [place] [address] Phone Care Team Providers Care Operator [employer] Name Role Phone Marshal Cabrales DO Primary Care Provider [phone] Encounters Date Type Department Care Team Description 06/26/2024 Lab Requisition [facility] - Main Lab [address] [facility] [place] [address] Filiberto Page MD Bladder-neck obstruction; Urinary tract infection, site not specified from Last 3 Months Medical History Medical History Date Comments Essential hypertension DX:Essent ial hypertension Family History Relation Name Status Comments Father Mother Alive Social History Tobacco Use Types Packs/Day Years Used Date Smoking Tobacco: Never Smokeless Tobacco: Never Alcohol Use Standard Drinks/Week Comments Yes 0 (1 standard drink = 0.6 oz pur e alcohol) Sex and Gender Information Value Date Recorded Sex Assigned at Not on file Legal Sex Male 1:11 AM EST Gender Identity Not on file Sexual Orientation Not on file Obstetrics History Plan of Treatment Health Maintenance Due Date Last Done Comments DTaP,Tdap,and Td Vaccines (1 - Tdap) 1974 Pneumococcal Vaccine: 50+ Ye ars (1 of 1 - PCV) 08/22/2007 Zoster Vaccines (1 of 2) 08/22/2007 COVID-19 Vaccine ( - 2023-2 5 season) 2024 Influenza Vaccine (#1) 2024 Abdominal Aortic Aneurysm (A AA) Screen 06/26/2024 Cholesterol Screening (Lipid Panel) 06/26/2024 Colorectal Cancer Screening: Colonoscopy 06/26/2024 Depression Screening 06/26/2024 Falls Risk Assessment 06/26/2024 Hepatitis C Screening 06/26/2024 Hypertension/CHF/CAD Annual BMP Blood Test 06/26/2024 Medicare Annual Wellness Visit 06/26/2024 Social Influencers of Health Screening 06/26/2024 RSV Immunization Patients 60 + Years Old (1 - 1-dose 75+ series) 2032 HIB Vaccines Aged Out No longer eligi ble based on patient's age to complete this topic HPV Vaccines Aged Out No longer eligi ble based on patient's age to complete this topic Hepatitis A Vaccines Aged Out No long er eligible based on patient's age to complete this topic Hepatitis B Vaccines Aged Out No long er eligible based on patient's age to complete this topic IPV Vaccines Aged Out No longer eligi ble based on patient's age to complete this topic MMR Vaccines Aged Out No longer eligi ble based on patient's age to complete this topic Meningococcal ACWY Vaccine Aged Out N o longer eligible based on patient's age to complete this topic Meningococcal B Vacine Aged Out No lo nger eligible based on patient's age to complete this topic RSV Immunization Patients Un kt 20 months Aged Out No longer eligible b ased on patient's age to complete this topic Varicella Vaccines Aged Out No longer eligible based on patient's age to complete this topic Procedures Procedure Name Priority Date/Time Associated Diagnosis Comments COMPLETE BLOOD COUNT Routine 06/26/2024 8:54 AM EST Bladder-neck obstruction Urinary tract infection, site not specified URINALYSIS WITH REFLEX MICROSCOPIC Routine 06/26/2024 8:54 AM EST Bladder-neck obstruction Urinary tract infection, site not specified URINALYSIS WITH REFLEX MICROSCOPIC Routine 06/26/2024 8:54 AM EST Bladder-neck obstruction Urinary tract infection, site not specified CULTURE URINE Routine 06/26/2024 8:54 AM EST Bladder-neck obstruction Urinary tract infection, site not specified from Last 3 Months Results * (ABNORMAL) Urinalysis with reflex microscopic (06/26/2024 8:54 AM EST) Specific [place] Urine 1.016 1.003 - 1.030 LAB URINALYSIS - AUTOMATED METHOD 06/26/2024 1:02 PM EST [facility] pH, Urine 6.0 5.0 - 8.0 pH LAB URINALYSIS - AUTOMATED METHOD 06/26/2024 1:02 PM [facility] Leukocytes, Urine Moderate(A) Negative LAB URINALYSIS - AUTOMATED METHOD 06/26/2024 1:02 PM [facility] Nitrite, Urine Negative Negative LAB URINALYSIS - AUTOMATED METHOD 06/26/2024 1:02 PM [facility] Protein, Urine Negative <=Trace mg/dL LAB URINALYSIS - AUTOMATED METHOD 06/26/2024 1:02 PM [facility] Glucose, Urine Negative Negative mg/dL LAB URINALYSIS - AUTOMATED METHOD 06/26/2024 1:02 PM [facility] Ketones, Urine Negative Negative mg/dL LAB URINALYSIS - AUTOMATED METHOD 06/26/2024 1:02 PM [facility] Urobilinogen , Urine 0.2 0.2 - 1.0 mg/dL LAB URINALYSIS - AUTOMATED METHOD 06/26/2024 1:02 PM [facility] Bilirubin, Urine Negative Negative LAB URINALYSIS - AUTOMATED METHOD 06/26/2024 1:02 PM [facility] Blood, Urine Negative Negative LAB URINALYSIS - AUTOMATED METHOD 06/26/2024 1:02 PM [facility] RBC, Urine 1.5 0 - 4 /HPF LAB URINALYSIS - AUTOMATED METHOD 06/26/2024 1:02 PM [facility] WBC, Urine 23.9(H) 0 - 4 /HPF LAB URINALYSIS - AUTOMATED METHOD 06/26/2024 1:02 PM [facility] Squamous Epithelial, Urine 37 0 - 60 /LPF LAB URINALYSIS - AUTOMATED METHOD 06/26/2024 1:02 PM [facility] Bacteria, Urine Negative Negative /HPF LAB URINALYSIS - AUTOMATED METHOD 06/26/2024 1:02 PM [facility] Hyaline Casts, Urine 0.0 0 - 3 /LPF LAB URINALYSIS - AUTOMATED METHOD 06/26/2024 1:02 PM [facility] Urine Urine specimen obtained by clean catch procedure / Unknown 06/26/2024 8:54 AM EST 06/26/2024 12:36 PM EST us Filiberto Page MD LAB URINE ORDERABLES Final Resu lt [facility] [address] [place] [address], [place] [phone] * (ABNORMAL) Complete blood count (06/26/2024 8:54 AM EST) WBC 7.0 4.8 - 10.8 K/mcL LAB HEMETOLOGY METHOD 06/26/2024 12:52 PM [facility] RBC 4.00(L) 4.50 - 5.50 M/mcL LAB HEMETOLOGY METHOD 06/26/2024 12:52 PM [facility] Hemoglobin 12.5(L) 13.5 - 17.5 g/dL LAB HEMETOLOGY METHOD 06/26/2024 12:52 PM [facility] Hematocrit 38.0(L) 42.0 - 54.0 % LAB HEMETOLOGY METHOD 06/26/2024 12:52 PM [facility] MCV 95.2 79.0 - 98.0 FL LAB HEMETOLOGY METHOD 06/26/2024 12:52 PM [facility] MCH 31.3 27.0 - 32.0 pcg LAB HEMETOLOGY METHOD 06/26/2024 12:52 PM [facility] MCHC 32.9 32.0 - 37.0 g/dL LAB HEMETOLOGY METHOD 06/26/2024 12:52 PM [facility] RDW 14.7 11.0 - 15.0 % LAB HEMETOLOGY METHOD 06/26/2024 12:52 PM EST [facility] Platelets 367 130 - 400 K/mcL LAB HEMETOLOGY METHOD 06/26/2024 12:52 PM [facility] MPV 9.4 7.0 - 11.0 FL LAB HEMETOLOGY METHOD 06/26/2024 12:52 PM [facility] NRBC 0.0 <1.0 % LAB HEMETOLOGY METHOD 06/26/2024 12:52 PM [facility] NRBC Absolute 0.00 <0.10 K/mcL LAB HEMETOLOGY METHOD 06/26/2024 12:52 PM [facility] Blood Venous blood specimen / Unknown 06/26/2024 8:54 AM EST 06/26/2024 12:36 PM EST Filiberto Page MD LAB BLOOD ORDERABLES Final Resu lt [facility] [address] [place] [address], * (ABNORMAL) Culture urine (06/26/2024 8:54 AM EST) Pathologist [facility] Culture, Urine >100,000 CFU/mL Staphylococcus epidermidis(A) CARLOS 06/28/2024 12:12 PM EST [facility] Comment: Edited result: Previously reported as Gram Positive Cocci on 06/27/2024 at 0807 EST. Urine Urine specimen from urinary conduit / Unknown 06/26/2024 8:54 AM EST 06/26/2024 12:36 PM EST Narrative Organism Antibiotic Method Susceptibility Staphylococcus epidermidis Benzylpenicillin CARLOS 0.25 ug/ml: Resistant Staphylococcus epidermidis Oxacillin CARLOS <=0.25 ug/ml: Susceptible Staphylococcus epidermidis Gentamicin CARLOS 4 ug/ml: Susceptible Staphylococcus epidermidis Ciprofloxacin CARLOS <=0.5 ug/ml: Susceptible Staphylococcus epidermidis Levofloxacin CARLOS <=0.12 ug/ml: Susceptible Staphylococcus epidermidis Quinupristin/Dalfopristin M IC <=0.25 ug/ml: Susceptible Staphylococcus epidermidis Linezolid CARLOS 1 ug/ml: Susceptible Staphylococcus epidermidis Vancomycin CARLOS 2 ug/ml: Susceptible Staphylococcus epidermidis Tetracycline CARLOS >=16 ug/ml: Resistant Staphylococcus epidermidis Nitrofurantoin CARLOS <=16 ug/ml: Susceptible Staphylococcus epidermidis Rifampin CARLOS <=0.5 ug/ml: Susceptible us Filiberto Page MD LAB MICROBIOLOGY - GENERAL KATHY ARGUETA Final Result [facility] [address] [place] [address], [place] [phone] from Last 3 Months Insurance [employer] - [place] MEDICARE ADVANTAGE Care Teams Operator [employer] Relationship Specialty Start Date End Date Marshal Cabrales DO [address] [place] [phone] PCP - General Internal Medicine 07/21/20
--- OUTSIDE RECORDS SUMMARY | 2024-07-22 10:28 | XMS_ITS | Encounter Summary ---
Author Organization [facility] Address [address] [place] [address] Care Team Providers Care Key Punch Operator Name Role Phone Marshal Cabrales DO Primary Care Provider [phone] Encounter Details Date Type Department Care Team (Late st Contact Info) Description 06/26/[address] [facility] - Main Lab [address] [facility] [place] [address] Filiberto Page MD [address] [place] [address] Bladder-neck obstruction; Urinary tract infection, site not specified Social History Tobacco Use Types Packs/Day Years Used Date Smoking Tobacco: Never Smokeless Tobacco: Never Alcohol Use Standard Drinks/Week Comments Yes 0 (1 standard drink = 0.6 oz pur e alcohol) Sex and Gender Information Value Date Recorded Sex Assigned at Not on file Legal Sex Male 1:11 AM EST Gender Identity Not on file Sexual Orientation Not on file documented as of this encounter Plan of Treatment Not on file documented as of this encounter Procedures Procedure Name Priority Date/Time Associated Diagnosis Comments URINALYSIS WITH REFLEX MICROSCOPIC Routine 06/26/2024 8:54 AM EST Bladder-neck obstruction Urinary tract infection, site not specified URINALYSIS WITH REFLEX MICROSCOPIC Routine 06/26/2024 8:54 AM EST Bladder-neck obstruction Urinary tract infection, site not specified COMPLETE BLOOD COUNT Routine 06/26/2024 8:54 AM EST Bladder-neck obstruction Urinary tract infection, site not specified CULTURE URINE Routine 06/26/2024 8:54 AM EST Bladder-neck obstruction Urinary tract infection, site not specified documented in this encounter Results * (ABNORMAL) Complete blood count (06/26/2024 8:54 AM EST) [facility] WBC 7.0 4.8 - 10.8 K/mcL LAB HEMETOLOGY METHOD 06/26/2024 12:52 PM [facility] RBC 4.00(L) 4.50 - 5.50 M/mcL LAB HEMETOLOGY METHOD 06/26/2024 12:52 PM [facility] Hemoglobin 12.5(L) 13.5 - 17.5 g/dL LAB HEMETOLOGY METHOD 06/26/2024 12:52 PM [facility] LAB Hematocrit 38.0(L) 42.0 - 54.0 % LAB HEMETOLOGY METHOD 06/26/2024 12:52 PM [facility] MCV 95.2 79.0 - 98.0 FL LAB HEMETOLOGY METHOD 06/26/2024 12:52 PM [facility] MCH 31.3 27.0 - 32.0 pcg LAB HEMETOLOGY METHOD 06/26/2024 12:52 PM [facility] MCHC 32.9 32.0 - 37.0 g/dL LAB HEMETOLOGY METHOD 06/26/2024 12:52 PM [facility] RDW 14.7 11.0 - 15.0 % LAB HEMETOLOGY METHOD 06/26/2024 12:52 PM [facility] Platelets 367 130 - 400 K/mcL LAB HEMETOLOGY METHOD 06/26/2024 12:52 PM [facility] MPV 9.4 7.0 - 11.0 FL LAB HEMETOLOGY METHOD 06/26/2024 12:52 PM [facility] NRBC 0.0 <1.0 % LAB HEMETOLOGY METHOD 06/26/2024 12:52 PM [facility] LAB NRBC Absolute 0.00 <0.10 K/mcL LAB HEMETOLOGY METHOD 06/26/2024 12:52 PM [facility] Blood Venous blood specimen / Unknown 06/26/2024 8:54 AM EST 06/26/2024 12:36 PM EST us Filiberto Page MD LAB BLOOD ORDERABLES Final Resu lt [facility] [address] [place] [address], [place] [phone] * (ABNORMAL) Urinalysis with reflex microscopic (06/26/2024 8:54 AM EST) Specific [place] Urine 1.016 1.003 - 1.030 LAB URINALYSIS - AUTOMATED METHOD 06/26/2024 1:02 PM [facility] pH, Urine 6.0 5.0 - 8.0 pH LAB URINALYSIS - AUTOMATED METHOD 06/26/2024 1:02 PM [facility] Leukocytes, Urine Moderate(A) Negative LAB URINALYSIS - AUTOMATED METHOD 06/26/2024 1:02 PM [facility] Nitrite, Urine Negative Negative LAB URINALYSIS - AUTOMATED METHOD 06/26/2024 1:02 PM [facility] Protein, Urine Negative <=Trace mg/dL LAB URINALYSIS - AUTOMATED METHOD 06/26/2024 1:02 PM [facility] Glucose, Urine Negative Negative mg/dL LAB URINALYSIS - AUTOMATED METHOD 06/26/2024 1:02 PM [facility] Ketones, Urine Negative Negative mg/dL LAB URINALYSIS - AUTOMATED METHOD 06/26/2024 1:02 PM [facility] Urobilinogen , Urine 0.2 0.2 - 1.0 mg/dL LAB URINALYSIS - AUTOMATED METHOD 06/26/2024 1:02 PM [facility] Bilirubin, Urine Negative Negative LAB URINALYSIS - AUTOMATED METHOD 06/26/2024 1:02 PM [facility] Blood, Urine Negative Negative LAB URINALYSIS - AUTOMATED METHOD 06/26/2024 1:02 PM [facility] RBC, Urine 1.5 0 - 4 /HPF LAB URINALYSIS - AUTOMATED METHOD 06/26/2024 1:02 PM [facility] WBC, Urine 23.9(H) 0 - 4 /HPF LAB URINALYSIS - AUTOMATED METHOD 06/26/2024 1:02 PM [facility] Squamous Epithelial, Urine 37 0 - 60 /LPF LAB URINALYSIS - AUTOMATED METHOD 06/26/2024 1:02 PM [facility] Bacteria, Urine Negative Negative /HPF LAB URINALYSIS - AUTOMATED METHOD 06/26/2024 1:02 PM [facility] Hyaline Casts, Urine 0.0 0 - 3 /LPF LAB URINALYSIS - AUTOMATED METHOD 06/26/2024 1:02 PM [facility] Urine Urine specimen obtained by clean catch procedure / Unknown 06/26/2024 8:54 AM EST 06/26/2024 12:36 PM EST us Filiberto Page MD LAB URINE ORDERABLES Final Resu lt [facility] [address] [place] [address], * (ABNORMAL) Culture urine (06/26/2024 8:54 AM EST) Culture, Urine >100,000 CFU/mL Staphylococcus epidermidis(A) CARLOS 06/28/2024 12:12 PM [facility] Comment: Edited result: Previously reported [...] MICROBIOLOGY - GENERAL KATHY ARGUETA Final Result [facility] ([facility]) [facility] [address] [place] [address], documented in this encounter Visit Diagnoses Diagnosis Bladder-neck obstruction Urinary tract infection, site not specified documented in this encounter Care Teams Key Punch Operator Relationship Specialty Start Date End Date Marshal Cabrales DO [address] [place] [phone] PCP - General Internal Medicine 07/21/20 documented as of this encounter
== END 2024-07-22 10:05 | disposition home or self-care (01) ==
LOC: HO.HMCSH 09:29
PROVIDERS: PCP Internal Medicine; Visit Provider Physician Assistant Medical
DX: N40.0 Benign prostatic hyperplasia without lower urinary tract symptoms (principal); Z90.79 Acquired absence of other genital organ(s); I12.9 Hypertensive chronic kidney disease with stage 1 through stage 4 chronic kidney disease, or unspecified chronic kidney disease; R97.20 Elevated prostate specific antigen [PSA]; E78.00 Pure hypercholesterolemia, unspecified; N18.9 Chronic kidney disease, unspecified; R79.89 Other specified abnormal findings of blood chemistry

== ENCOUNTER 2024-07-22 09:29 | Outpatient (REF) | payer BC, SELFPAY ==
[2024-07-22 13:38] LABS: MANUAL DIFF FLAG NO
[2024-07-22 13:41] LABS: Basophils Absolute Auto 0.2 X10*3/uL (0.0-0.2); Basophils Percent Auto 1.3 % (0-2); Eosinophils Absolute Auto 0.9 X10*3/uL (0.0-0.4); Eosinophils Percent Auto 7.2 % (0-4); Hematocrit 37.8 % (42.0-52.0); Hemoglobin 12.3 g/dl (14.0-18.0); Imm Gran Abs Auto 0.32 X10*3/uL (0.00-0.03); Imm Gran Pct Auto 2.7 % (0.0-0.4); Lymphocytes Absolute Auto 1.5 X10*3/uL (1.2-4.9); Lymphocytes Percent Auto 12.4 % (20-40); Mean Corpuscular HGB Conc 32.5 g/dl (31.0-36.0); Mean Corpuscular Hemoglobin 30.8 pg (27.0-33.0); Mean Corpuscular Volume 94.7 fL (80.0-98.0); Mean Platelet Volume 9.3 fL (9.4-12.4); Monocytes Absolute Auto 0.6 X10*3/uL (0.1-1.2); Monocytes Percent Auto 5.2 % (2-11); Neutrophils Absolute Auto 8.5 x10*3/uL (2.0-8.3); Neutrophils Percent Auto 71.2 % (45-73); Platelet Count 546 X10*3/uL (160-400); Red Blood Count 3.99 X10*6/uL (4.60-5.80); Red Cell Distribution Width 13.6 % (11.0-16.0)
[2024-07-22 14:03] LABS: Alanine Aminotransferase 13 U/L (0-40); Albumin Level 4.1 g/dL (3.5-5.0); Anion Gap 12 (12-20); Aspartate Amino Transferase 22 U/L (5-37); Bilirubin Direct 0.1 mg/dL (0.0-0.5); Bilirubin Total 0.3 mg/dL (0.0-1.0); Blood Urea Nitrogen 19 mg/dL (9-16); Calcium 9.8 mg/dL (8.4-10.2); Carbon Dioxide 28 mmol/L (22-29); Chloride 105 mmol/L (96-108); Estimated Average Glucose 88 mg/dL; Estimated Glomerular Filt Rate 40; Glucose Random 93 mg/dL (60-115); Hemoglobin A1c % 4.7 % (<6.0); Phosphorus 2.8 mg/dL (2.7-4.5); Potassium 4.5 mmol/L (3.3-5.1); Sodium 140 mmol/L (135-145); Total Protein 7.4 g/dL (6.5-8.0)
[2024-07-22 14:28] LABS: Parathyroid Hormone Intact 31.8 pg/mL (8.7-77.1)
[2024-07-22 14:29] LABS: TSH reflex Free T4 1.81 uIU/mL (0.32-4.0); Vitamin D 25-OH Total 71.7 ng/mL (>30)
[2024-07-22 14:32] LABS: Folate 11.8 ng/mL (> or = 4.0); Vitamin B12 711 pg/mL (200-900)
[2024-07-22 14:38] LABS: Alkaline Phosphatase 86 U/L (39-117)
[2024-08-01 01:28] LABS: Vitamin B1 36 nmol/L (8-30)
== END 2024-07-22 09:30 | disposition home or self-care (01) ==
LOC: HO.HMGCLDS 09:29
PROVIDERS: PCP Internal Medicine; Visit Provider Physician Assistant Medical
DX: Z00.00 Encounter for general adult medical examination without abnormal findings (principal); Z13.1 Encounter for screening for diabetes mellitus
CPT/HCPCS: 36415; 80053; 82248; 82306; 82607; 82746; 83036; 83970; 84100; 84425; 84443; 85025

== ENCOUNTER 2024-10-23 08:55 | Outpatient (AMB) | payer BC, SELFPAY ==
[2024-10-23 08:55] VITALS: BP 138/86; PULSE 83; O2SAT 98; BMI 25.0
--- NOTE | 2024-10-23 08:55 | MHC.PC.OV ---
Vital Signs 10/23/24 08:55 Height 6 ft Weight 184 lb 4 oz BMI 25.0 BP 138/86 Blood Pressure Location Rt brachial Position Sitting Pulse 83 Pulse Source Pulse Oximeter Pulse Oximetry (%) 98 Oxygen Delivery Method Room Air Intake Visit Reasons: 3 month f/u Allergies Sulfa (Sulfonamide Antibiotics) Allergy (Verified 10/23/24 09:05) Hives Medication List - Last Reconciled 10/23/24 by Liliana Johnson PA-C amlodipine 10 mg PO DAILY coenzyme Q10 200 mg PO DAILY multivitamin with minerals 1 cap PO DAILY omega-3 fatty acids-fish oil 360-1,200 mg (Fish Oil) 2 caps PO DAILY Saccharomyces boulardii (Daily Probiotic (S. boulardii)) 250 mg PO BID Tobacco use date assessed: 10/23/24 Fall risk assessment: No Falls in past year Last assessed Fall Risk: 10/23/24 Dental Screening Dental Screen Date: 10/23/24 Did you have a dental visit in the last 12 months?: Yes Did you have a dental problem in the last 6 months where you did not have access to dental care?: No Was dental information given to patient?: Patient has dentist HPI 3 month f/u HPI Details The patient is a 69-year-old male presenting for a follow-up visit. The patient underwent a Transurethral Resection of the Prostate (TURP) and reports significant improvement in symptoms post-procedure, no longer requiring self-catheterization. He has not experienced any complications since the surgery. The patient's blood pressure is well-controlled, with recent measurements at 138/86 mmHg, which is within the desired range. There have been no recent changes in antihypertensive medication. The patient had previously elevated kidney function tests, which are being monitored. A repeat test is planned to assess current status. The patient reports occasional peripheral edema, which may be related to amlodipine use. He is advised to elevate his legs to alleviate symptoms. The patient has noticed visual floaters for several months, with no significant change in size or frequency. He has been advised to follow up with his editor greeting card for further evaluation. Social History - Exercise: Patient mentions the need to return to weight training. PENDING SALE TO [facility] Medical History (Updated 10/23/24 @ 10:12 by Liliana Johnson PA-C) Floaters in visual field Peripheral edema Elevated parathyroid hormone BPH loc w/o ur obs/LUTS Intermittent self-catheterization of bladder Obstructed, uropathy Enlarged prostate Bilateral hydronephrosis Hypertension Basal cell carcinoma Scoliosis Elevated PSA Renal insufficiency Mild hypercholesterolemia Surgical History S/P TURP Family History Maternal Grandfather Diabetes Father Colon cancer Social History Household Members: Friend(s) Housing: House Alcohol intake: current Alcohol intake frequency: holidays/special occasions only Patient Tobacco Use Status: Never used Tobacco e-Cigarette/Vaping Use: Never Used Current occupational status: retired Cognitive needs: No Hearing needs: No Vision needs: Yes Questionnaire PHQ-9 Over the last 2 weeks, how often have you been bothered by any of the following problems? 1. Little interest or pleasure in doing things: not at all 2. Feeling down, depressed, or hopeless: not at all 3. Trouble falling or staying asleep, or sleeping too much: not at all 4. Feeling tired or having little energy: not at all 5. Poor appetite or overeating: not at all 6. Feeling bad about yourself - or that you are a failure or have let yourself or your family down: not at all 7. Trouble concentrating on things, such as reading the newspaper or watching television: not at all 8. Moving or speaking so slowly that other people could have noticed. Or the opposite - being so fidgety or restless that you have been moving around a lot more than usual: not at all 9. Thoughts that you would be better off or of hurting yourself in some way: not at all Total score: 0 Depression Screening Interpretation: Negative Depression Screening Done: Yes 13215 - PHQ-9 Billing: Yes Source: Developed by Drs. Marshal Gaspar, Saima Owen, Sina Solis and colleagues, with an educational oleksandr from [employer]. Thrive Questionnaire Date Thrive assessed: 10/23/24 I am a: Patient What is your living situation today?: I have a steady place to live Within the past 12 months, did the food you bought not last and you didn't have the money to get more?: Never true Within the past 12 months, did you worry whether your food would run out before you got money to buy more?: Never true Do you have trouble paying for medicines?: No Do you have trouble getting transportation to medical appointments?: No Do you have trouble paying your heating and electricity bill?: No Do you have trouble taking care of your child, family member or friend?: No Do you have trouble with day-to-day activities such as bathing, preparing meals, shopping, managing finances, etc.?: No Are you currently unemployed and looking for a job?: No Are you interested in more education?: No THRIVE Score: 0 AUDIT C Alcohol Use Questionnaire (AUDIT-C) 1. How often do you have a drink containing alcohol?: Monthly or less 2. How many drinks containing alcohol do you have on a typical day when you are drinking?: 1 or 2 3. How often do you have six or more drinks on one occasion?: Never Total Score: 1 Score Reviewed/Action Taken: No NI-7 AMB Questionnaire NI-7 Date NI - 7 assessed: 10/23/24 Feeling nervous, anxious, or on edge: 0 = Not at all Not being able to stop or control worryin = Not at all Worrying too much about different things: 0 = Not at all Trouble relaxin = Not at all Being so restless that it is hard to sit still: 0 = Not at all Becoming easily annoyed or irritable: 0 = Not at all Feeling afraid as if something awful might happen: 0 = Not at all Total NI-7 score (0-4 normal; 5-9 mild; 10-14 moderate; 15-21 severe): 0 Source: Developed by Drs. Marshal Gaspar, Saima Owen, Sina Solis and colleagues, with an educational oleksandr from [employer]. NI-7 Assessment Billing NI-7 Assessment Tool: NI-7 Assessment 46467 Review of Systems Const Details: - Cardiovascular: Denies chest pain or dyspnea. - Ophthalmologic: Reports visual floaters for several months, denies significant change in size or frequency. - Musculoskeletal: Reports noticing thinner legs, denies significant weakness. Physical exam (Primary Care) Vital Signs: Last Vital Signs Pulse 83 10/23/24 08:55 BP 138/86 10/23/24 08:55 Pulse Ox 98 10/23/24 08:55 Oxygen Delivery Method Room Air 10/23/24 08:55 Care Plan Goal for BP management: <140/90 at Goal BMI result Body Mass Index 25.0 Tobacco/Smoking Status: Tobacco use Status Tobacco use date assessed 10/23/24 10/23/24 09:03 Patient Tobacco Use Status Never used Tobacco 10/23/24 09:03 e-Cigarette/Vaping Use Never Used 10/23/24 09:03 PHQ-9: PHQ-9 Score PHQ-9: Total score 0 10/23/24 09:06 Depression Screening Interpretation: Negative Thrive Assessment: Date of Thrive Assessment Date Thrive assessed 10/23/24 10/23/24 09:03 Const Other: Appearance: Alert. Oriented X3. No acute distress. Head: Normal external exam. Normocephalic. Atraumatic. Eyes: Pupils are equal, round, and reactive to light. Extraocular movements intact. Conjunctiva and sclera normal. Eyelids normal. Patient reports floaters and halos around bright lights, but no obvious issues observed during examination. Patient had a normal funduscopic exam. Ears: External auditory canal normal. Tympanic membranes normal. Throat: Pharynx normal. Uvula midline. Moist mucous membranes. Neck: Normal inspection. Neck supple. Full range of motion. Cardiovascular: Normal heart rate and rhythm. Blood pressure recorded at 138/86. Respiratory: No respiratory distress. Painless inspiration. Back: Full range of motion noted. Skin: Skin warm and dry. Normal skin color. Normal skin turgor. No rashes/lesions/lacerations noted. Extremities: No lower extremity edema. Extremities exhibit normal range of motion. Extremities nontender. Patient reports occasional puffiness, possibly related to amlodipine. Neuro: Oriented X 3. No motor deficit. No sensory deficit. Reflexes normal. Results Reviewed Results Reviewed: - Labs: Previous kidney function tests were elevated, repeat testing planned. Coding Level of Care Code Est Pt Level 4 (30304) Complex EM visit Add On G2211 Diagnoses BPH loc w/o ur obs/LUTS N40.0 Hypertension I10 Renal insufficiency N28.9 Peripheral edema R60.0 Floaters in visual field H43.399 Additional Codes NI-7 Assessment Billing - NI-7 Assessment Tool: NI-7 Assessment 39027 ([id number]) PHQ-9 - 40654 - PHQ-9 Billing: Yes ([id number]) Assessment & Plan Assessment & Plan (1) BPH loc w/o ur obs/LUTS: Comment: s/p TURP. BEING FOLLOWED BY [facility], CARMELA FRANKLIN PA-C Code(s): N40.0 - Benign prostatic hyperplasia without lower urinary tract symptoms Category: Medical Plan: The patient reports significant improvement in urinary symptoms following TURP, with no need for self-catheterization and no complications noted. (2) Hypertension: Code(s): I10 - Essential (primary) hypertension Category: Medical Plan: The patient's blood pressure is well-controlled at 138/86 mmHg, with no recent changes in medication required. Well controlled. Condition is chronic and stable continue to monitor. (3) Renal insufficiency: Code(s): N28.9 - Disorder of kidney and ureter, unspecified Category: Medical Plan: Previous kidney function tests were elevated; a repeat test is planned to monitor current status. Will continue to monitor to assess if worse or improved. (4) Peripheral edema: Code(s): R60.0 - Localized edema Category: Medical Plan: The patient experiences occasional peripheral edema, potentially related to amlodipine use, and is advised to elevate legs to alleviate symptoms. No pitting edema noted at this time will continue to monitor. (5) Floaters in visual field: Code(s): H43.399 - Other vitreous opacities, unspecified eye Category: Medical Plan: The patient reports visual floaters for several months, with no significant change in size or frequency, and is advised to follow up with an editor greeting card. Condition is chronic and stable not worse will continue to monitor although patient advised to follow up Ophthalmology as soon as possible. Plan Plan Patient was informed and verbally consented to the use of an ambient scribe for clinic note documentation during this visit. 1. Benign Prostatic Hyperplasia (Post-Turp) The patient reports significant improvement in urinary symptoms following TURP, with no need for self-catheterization and no complications noted. 2. Hypertension The patient's blood pressure is well-controlled at 138/86 mmHg, with no recent changes in medication required. 3. Elevated Kidney Function Previous kidney function tests were elevated; a repeat test is planned to monitor current status. 4. Peripheral Edema The patient experiences occasional peripheral edema, potentially related to amlodipine use, and is advised to elevate legs to alleviate symptoms. 5. Visual Floaters The patient reports visual floaters for several months, with no significant change in size or frequency, and is advised to follow up with an editor greeting card. During the visit, we discussed the patient's current health status, including the improvement in urinary symptoms post-TURP and the well-controlled blood pressure. We reviewed the need for repeat kidney function tests due to previous elevations and addressed the occasional peripheral edema, likely related to amlodipine. The patient was advised to elevate his legs to manage edema. We also discussed the presence of visual floaters and recommended a follow-up with an editor greeting card to ensure no underlying issues. The patient was encouraged to maintain regular follow-ups and report any new symptoms. Orders: Orders Basic Metabolic Panel Today N28.9 - Disorder of kidney and ureter, unspecified Patient Instructions: - Continue monitoring blood pressure and report any significant changes. - Elevate legs regularly to manage peripheral edema. - Schedule an appointment with your editor greeting card for evaluation of visual floaters. - Follow up for repeat kidney function tests as advised.
--- OUTSIDE RECORDS SUMMARY | 2024-10-23 09:01 | XMS_ITS | Encounter Summary ---
Author Organization [facility] Address [address] [place] [address] Care Team Providers Care Refining Engineer Name Role Phone Marshal Cabrales DO Primary Care Provider [phone] Encounter Details Date Type Department Care Team (Late st Contact Info) Description 06/26/2024 Lab Requisition [facility] - Main Lab [address] [facility] [place] [address] Filiberto Page MD [address] [place] [address] Bladder-neck obstruction; Urinary tract infection, [...] Complete blood count (06/26/2024 8:54 AM EST) [facility] WBC 7.0 4.8 - 10.8 K/mcL LAB HEMETOLOGY METHOD 06/26/2024 12:52 PM [facility] RBC 4.00(L) 4.50 - 5.50 M/mcL LAB HEMETOLOGY METHOD 06/26/2024 12:52 PM [facility] Hemoglobin 12.5(L) 13.5 - 17.5 g/dL LAB HEMETOLOGY METHOD 06/26/2024 12:52 PM [facility] Hematocrit 38.0(L) 42.0 - 54.0 % LAB HEMETOLOGY METHOD 06/26/2024 12:52 PM [facility] MCV 95.2 79.0 - 98.0 FL LAB HEMETOLOGY METHOD 06/26/2024 12:52 PM [facility] MCH 31.3 27.0 - 32.0 pcg LAB HEMETOLOGY METHOD 06/26/2024 12:52 PM [facility] MCHC 32.9 32.0 - 37.0 g/dL LAB HEMETOLOGY METHOD 06/26/2024 12:52 PM [facility] RDW 14.7 11.0 - 15.0 % LAB HEMETOLOGY METHOD 06/26/2024 12:52 PM [facility] Platelets 367 130 - 400 K/mcL LAB HEMETOLOGY METHOD 06/26/2024 12:52 PM [facility] MPV 9.4 7.0 - 11.0 FL LAB HEMETOLOGY METHOD 06/26/2024 12:52 PM [facility] NRBC 0.0 <1.0 % LAB HEMETOLOGY METHOD 06/26/2024 12:52 PM [facility] NRBC Absolute 0.00 <0.10 K/mcL LAB HEMETOLOGY METHOD 06/26/2024 12:52 PM [facility] Blood Venous blood specimen / Unknown 06/26/2024 8:54 AM EST 06/26/2024 12:36 PM EST us Filiberto Page MD LAB BLOOD ORDERABLES Final Resu lt [facility] [address] [place] [address], [place] [phone] * (ABNORMAL) Urinalysis with reflex microscopic (06/26/2024 8:54 AM EST) Specific [place] Urine 1.016 1.003 - 1.030 LAB URINALYSIS - AUTOMATED METHOD 06/26/2024 1:02 PM [facility] pH, Urine 6.0 5.0 - 8.0 pH LAB URINALYSIS - AUTOMATED METHOD 06/26/2024 1:02 PM [facility] Leukocytes, Urine Moderate(A) Negative LAB URINALYSIS - AUTOMATED METHOD 06/26/2024 1:02 PM [facility] Nitrite, Urine Negative Negative LAB URINALYSIS - AUTOMATED METHOD 06/26/2024 1:02 PM [facility] Protein, Urine Negative <=Trace mg/dL LAB URINALYSIS - AUTOMATED METHOD 06/26/2024 1:02 PM [facility] Glucose, Urine Negative Negative mg/dL LAB URINALYSIS - AUTOMATED METHOD 06/26/2024 1:02 PM [facility] Ketones, Urine Negative Negative mg/dL LAB URINALYSIS - AUTOMATED METHOD 06/26/2024 1:02 PM [facility] Urobilinogen , Urine 0.2 0.2 - 1.0 mg/dL LAB URINALYSIS - AUTOMATED METHOD 06/26/2024 1:02 PM [facility] Bilirubin, Urine Negative Negative LAB URINALYSIS - AUTOMATED METHOD 06/26/2024 1:02 PM [facility] Blood, Urine Negative Negative LAB URINALYSIS - AUTOMATED METHOD 06/26/2024 1:02 PM [facility] RBC, Urine 1.5 0 - 4 /HPF LAB URINALYSIS - AUTOMATED METHOD 06/26/2024 1:02 PM [facility] WBC, Urine 23.9(H) 0 - 4 /HPF LAB URINALYSIS - AUTOMATED METHOD 06/26/2024 1:02 PM [facility] Squamous Epithelial, Urine 37 0 - 60 /LPF LAB URINALYSIS - AUTOMATED METHOD 06/26/2024 1:02 PM [facility] Bacteria, Urine Negative Negative /HPF LAB URINALYSIS - AUTOMATED METHOD 06/26/2024 1:02 PM [facility] Hyaline Casts, Urine 0.0 0 - 3 /LPF LAB URINALYSIS - AUTOMATED METHOD 06/26/2024 1:02 PM [facility] Urine Urine specimen obtained by clean catch procedure / Unknown 06/26/2024 8:54 AM EST 06/26/2024 12:36 PM EST us Filiberto Page MD LAB URINE ORDERABLES Final Resu lt [facility] [address] [place] [address], * (ABNORMAL) Culture urine (06/26/2024 8:54 AM EST) Culture, Urine >100,000 CFU/mL Staphylococcus epidermidis(A) CARLOS 06/28/2024 12:12 PM [facility] Comment: Edited result: Previously reported [...] - GENERAL KATHY ARGUETA Final Result [facility] ([facility]) [facility] [address] [place] [address], documented in this encounter Visit Diagnoses Diagnosis Bladder-neck obstruction Urinary tract infection, site not specified documented in this encounter Care Teams Refining Engineer Relationship Specialty Start Date End Date Marshal Cabrales DO [address] [place] [phone] PCP - General Internal Medicine 07/21/20 documented as of this encounter
== END 2024-10-23 09:21 | disposition home or self-care (01) ==
LOC: HO.HMCSH 08:55
PROVIDERS: PCP Internal Medicine; Visit Provider Physician Assistant Medical
DX: N40.0 Benign prostatic hyperplasia without lower urinary tract symptoms (principal); I10 Essential (primary) hypertension; N28.9 Disorder of kidney and ureter, unspecified; R60.0 Localized edema; H43.399 Other vitreous opacities, unspecified eye

== ENCOUNTER → 2024-10-23 08:55 | Outpatient (BNVA) | payer BC, SELFPAY | PROVIDERS: PCP Internal Medicine; Visit Provider Physician Assistant Medical | DX: N40.0 Benign prostatic hyperplasia without lower urinary tract symptoms (principal); I10 Essential (primary) hypertension; N28.9 Disorder of kidney and ureter, unspecified; R60.0 Localized edema; H43.399 Other vitreous opacities, unspecified eye; Z13.31 Encounter for screening for depression; Z13.30 Encounter for screening examination for mental health and behavioral disorders, unspecified | CPT/HCPCS: 96127 ==

== ENCOUNTER 2024-12-03 12:57 | Outpatient (REF) | payer BC, SELFPAY ==
--- OUTSIDE RECORDS SUMMARY | 2024-12-03 13:07 | XMS_ITS | Encounter Summary ---
Author Organization [facility] Address [address] [place] [address] Care Team Providers Care Admeasurer Name Role Phone Marshal Cabrales DO Primary Care Provider [phone] Encounter Details Date Type Department Care Team (Late st Contact Info) Description 06/26/2024 Lab Requisition [facility] - Main Lab [address] [facility] [place] [address] Filiberto Page MD [address] [place] [address] Bladder-neck obstruction; Urinary tract infection, [...] Complete blood count (06/26/2024 8:54 AM EST) [facility] WBC 7.0 4.8 - 10.8 K/mcL LAB HEMETOLOGY METHOD 06/26/2024 12:52 PM [facility] RBC 4.00(L) 4.50 - 5.50 M/mcL LAB HEMETOLOGY METHOD 06/26/2024 12:52 PM [facility] Hemoglobin 12.5(L) 13.5 - 17.5 g/dL LAB HEMETOLOGY METHOD 06/26/2024 12:52 PM [facility] Hematocrit 38.0(L) 42.0 - 54.0 % LAB HEMETOLOGY METHOD 06/26/2024 12:52 PM [facility] MCV 95.2 79.0 - 98.0 FL LAB HEMETOLOGY METHOD 06/26/2024 12:52 PM [facility] MCH 31.3 27.0 - 32.0 pcg LAB HEMETOLOGY METHOD 06/26/2024 12:52 PM [facility] MCHC 32.9 32.0 - 37.0 g/dL LAB HEMETOLOGY METHOD 06/26/2024 12:52 PM [facility] RDW 14.7 11.0 - 15.0 % LAB HEMETOLOGY METHOD 06/26/2024 12:52 PM [facility] Platelets 367 130 - 400 K/mcL LAB HEMETOLOGY METHOD 06/26/2024 12:52 PM [facility] MPV 9.4 7.0 - 11.0 FL LAB HEMETOLOGY METHOD 06/26/2024 12:52 PM [facility] NRBC 0.0 <1.0 % LAB HEMETOLOGY METHOD 06/26/2024 12:52 PM [facility] NRBC Absolute 0.00 <0.10 K/mcL LAB HEMETOLOGY METHOD 06/26/2024 12:52 PM [facility] Blood Venous blood specimen / Unknown 06/26/2024 8:54 AM EST 06/26/2024 12:36 PM EST us Filiberto Page MD LAB BLOOD ORDERABLES Final Resu lt [facility] [address] [place] [address], [place] [phone] * (ABNORMAL) Urinalysis with reflex microscopic (06/26/2024 8:54 AM EST) Specific [place] Urine 1.016 1.003 - 1.030 LAB URINALYSIS - AUTOMATED METHOD 06/26/2024 1:02 PM [facility] pH, Urine 6.0 5.0 - 8.0 pH LAB URINALYSIS - AUTOMATED METHOD 06/26/2024 1:02 PM [facility] Leukocytes, Urine Moderate(A) Negative LAB URINALYSIS - AUTOMATED METHOD 06/26/2024 1:02 PM [facility] Nitrite, Urine Negative Negative LAB URINALYSIS - AUTOMATED METHOD 06/26/2024 1:02 PM [facility] Protein, Urine Negative <=Trace mg/dL LAB URINALYSIS - AUTOMATED METHOD 06/26/2024 1:02 PM [facility] Glucose, Urine Negative Negative mg/dL LAB URINALYSIS - AUTOMATED METHOD 06/26/2024 1:02 PM [facility] Ketones, Urine Negative Negative mg/dL LAB URINALYSIS - AUTOMATED METHOD 06/26/2024 1:02 PM [facility] Urobilinogen , Urine 0.2 0.2 - 1.0 mg/dL LAB URINALYSIS - AUTOMATED METHOD 06/26/2024 1:02 PM [facility] Bilirubin, Urine Negative Negative LAB URINALYSIS - AUTOMATED METHOD 06/26/2024 1:02 PM [facility] Blood, Urine Negative Negative LAB URINALYSIS - AUTOMATED METHOD 06/26/2024 1:02 PM [facility] RBC, Urine 1.5 0 - 4 /HPF LAB URINALYSIS - AUTOMATED METHOD 06/26/2024 1:02 PM [facility] WBC, Urine 23.9(H) 0 - 4 /HPF LAB URINALYSIS - AUTOMATED METHOD 06/26/2024 1:02 PM [facility] Squamous Epithelial, Urine 37 0 - 60 /LPF LAB URINALYSIS - AUTOMATED METHOD 06/26/2024 1:02 PM [facility] Bacteria, Urine Negative Negative /HPF LAB URINALYSIS - AUTOMATED METHOD 06/26/2024 1:02 PM [facility] Hyaline Casts, Urine 0.0 0 - 3 /LPF LAB URINALYSIS - AUTOMATED METHOD 06/26/2024 1:02 PM [facility] Urine Urine specimen obtained by clean catch procedure / Unknown 06/26/2024 8:54 AM EST 06/26/2024 12:36 PM EST us Filiberto Page MD LAB URINE ORDERABLES Final Resu lt [facility] [address] [place] [address], * (ABNORMAL) Culture urine (06/26/2024 8:54 AM EST) Culture, Urine >100,000 CFU/mL Staphylococcus epidermidis(A) CARLOS 06/28/2024 12:12 PM [facility] Comment: Edited result: Previously reported [...] MICROBIOLOGY - GENERAL KATHY ARGUETA Final Result [facility] [address] [place] [address], documented in this encounter Visit Diagnoses Diagnosis Bladder-neck obstruction Urinary tract infection, site not specified documented in this encounter Care Teams Admeasurer Relationship Specialty Start Date End Date Marshal Cabrales DO [address] [place] [phone] PCP - General Internal Medicine 07/21/20 documented as of this encounter
[2024-12-03 16:05] LABS: Anion Gap 14 (12-20); Blood Urea Nitrogen 26 mg/dL (9-16); Calcium 9.3 mg/dL (8.4-10.2); Carbon Dioxide 26 mmol/L (22-29); Chloride 105 mmol/L (96-108); Estimated Glomerular Filt Rate 35; Potassium 3.8 mmol/L (3.3-5.1); Sodium 141 mmol/L (135-145)
== END 2024-12-03 12:58 | disposition home or self-care (01) ==
LOC: HO.HMGCLDS 12:57
PROVIDERS: PCP Internal Medicine; Visit Provider Physician Assistant Medical
DX: N28.9 Disorder of kidney and ureter, unspecified (principal)
CPT/HCPCS: 36415; 80048

== ENCOUNTER 2025-03-24 09:26 | Day surgery (SDC) | payer MEDICARE, SELFPAY ==
--- OUTSIDE RECORDS SUMMARY | 2025-02-26 12:36 | XMS_ITS | Clinical Summary ---
Author Organization LL [address] [place] [address] Address [address] [place] [address] Phone Care Team Providers Care Wood Room Supervisor Name Role Phone Marshal Cabrales DO Primary Care Provider [phone] Medical History Medical History Date Comments Essential [...] Health Maintenance Due Date Last Done Comments Colorectal Cancer Screening: Colonoscopy 1955 DTaP,Tdap,and Td Vaccines (1 - Tdap) 1976 Pneumococcal Vaccine: 50+ Ye ars (1 of 1 - PCV) 08/22/2007 Zoster Vaccines (1 of 2) 08/22/2007 Depression Screening 05/06/2024 Abdominal Aortic Aneurysm (A AA) Screen 06/26/2024 Cholesterol Screening (Lipid Panel) 06/26/2024 Falls Risk Assessment 06/26/2024 Hepatitis C Screening 06/26/2024 Hypertension/CHF/CAD Annual BMP Blood Test 06/26/2024 Medicare Annual Wellness Visit 06/26/2024 Social Influencers of Health Screening 06/26/2024 COVID-19 Vaccine (1 - 2023-2 5 season) 2025 Influenza Vaccine (#1) 2025 RSV Immunization Adult Patie nts (1 - 1-dose 75+ series) 2032 HIB [...] age to complete this topic Meningococcal B Vaccine Aged Out No l onger eligible based on patient's age to complete this topic RSV Immunization Patients Un kt 20 months Aged Out No longer eligible b ased on patient's age to complete this topic Varicella Vaccines Aged Out No longer eligible based on patient's age to complete this topic Insurance [employer] - [place] MEDICARE ADVANTAGE Care Teams Wood Room Supervisor Relationship Specialty Start Date End Date Marshal Cabrales DO [address] [place] [phone] PCP - General Internal Medicine 07/21/20
--- OUTSIDE RECORDS SUMMARY | 2025-02-26 12:36 | XMS_ITS | Encounter Summary ---
Author Organization [facility] Address [address] [place] [address] Care Team Providers Care Stain Wiper Name Role Phone Marshal Cabrales DO Primary Care Provider [phone] Encounter Details Date Type Department Care Team (Late st Contact Info) Description 06/26/2024 Lab Requisition [facility] - Main Lab [address] [facility] [place] [address] Filiberto Page MD [address] [place] [address] Bladder-neck obstruction; Urinary tract infection, [...] Complete blood count (06/26/2024 8:54 AM EST) [facility] WBC 7.0 4.8 - 10.8 K/mcL LAB HEMETOLOGY METHOD 06/26/2024 12:52 PM [facility] RBC 4.00(L) 4.50 - 5.50 M/mcL LAB HEMETOLOGY METHOD 06/26/2024 12:52 PM [facility] Hemoglobin 12.5(L) 13.5 - 17.5 g/dL LAB HEMETOLOGY METHOD 06/26/2024 12:52 PM [facility] Hematocrit 38.0(L) 42.0 - 54.0 % LAB HEMETOLOGY METHOD 06/26/2024 12:52 PM [facility] MCV 95.2 79.0 - 98.0 FL LAB HEMETOLOGY METHOD 06/26/2024 12:52 PM [facility] MCH 31.3 27.0 - 32.0 pcg LAB HEMETOLOGY METHOD 06/26/2024 12:52 PM [facility] MCHC 32.9 32.0 - 37.0 g/dL LAB HEMETOLOGY METHOD 06/26/2024 12:52 PM [facility] RDW 14.7 11.0 - 15.0 % LAB HEMETOLOGY METHOD 06/26/2024 12:52 PM [facility] Platelets 367 130 - 400 K/mcL LAB HEMETOLOGY METHOD 06/26/2024 12:52 PM [facility] MPV 9.4 7.0 - 11.0 FL LAB HEMETOLOGY METHOD 06/26/2024 12:52 PM [facility] NRBC 0.0 <1.0 % LAB HEMETOLOGY METHOD 06/26/2024 12:52 PM [facility] NRBC Absolute 0.00 <0.10 K/mcL LAB HEMETOLOGY METHOD 06/26/2024 12:52 PM [facility] Blood Venous blood specimen / Unknown 06/26/2024 8:54 AM EST 06/26/2024 12:36 PM EST us Filiberto Page MD LAB BLOOD ORDERABLES Final Resu lt [facility] [address] [place] [address], [place] [phone] * (ABNORMAL) Urinalysis with reflex microscopic (06/26/2024 8:54 AM EST) Specific [place] Urine 1.016 1.003 - 1.030 LAB URINALYSIS - AUTOMATED METHOD 06/26/2024 1:02 PM [facility] pH, Urine 6.0 5.0 - 8.0 pH LAB URINALYSIS - AUTOMATED METHOD 06/26/2024 1:02 PM [facility] Leukocytes, Urine Moderate(A) Negative LAB URINALYSIS - AUTOMATED METHOD 06/26/2024 1:02 PM [facility] Nitrite, Urine Negative Negative LAB URINALYSIS - AUTOMATED METHOD 06/26/2024 1:02 PM [facility] Protein, Urine Negative <=Trace mg/dL LAB URINALYSIS - AUTOMATED METHOD 06/26/2024 1:02 PM [facility] Glucose, Urine Negative Negative mg/dL LAB URINALYSIS - AUTOMATED METHOD 06/26/2024 1:02 PM [facility] Ketones, Urine Negative Negative mg/dL LAB URINALYSIS - AUTOMATED METHOD 06/26/2024 1:02 PM [facility] Urobilinogen , Urine 0.2 0.2 - 1.0 mg/dL LAB URINALYSIS - AUTOMATED METHOD 06/26/2024 1:02 PM [facility] Bilirubin, Urine Negative Negative LAB URINALYSIS - AUTOMATED METHOD 06/26/2024 1:02 PM [facility] Blood, Urine Negative Negative LAB URINALYSIS - AUTOMATED METHOD 06/26/2024 1:02 PM [facility] RBC, Urine 1.5 0 - 4 /HPF LAB URINALYSIS - AUTOMATED METHOD 06/26/2024 1:02 PM [facility] WBC, Urine 23.9(H) 0 - 4 /HPF LAB URINALYSIS - AUTOMATED METHOD 06/26/2024 1:02 PM [facility] Squamous Epithelial, Urine 37 0 - 60 /LPF LAB URINALYSIS - AUTOMATED METHOD 06/26/2024 1:02 PM [facility] Bacteria, Urine Negative Negative /HPF LAB URINALYSIS - AUTOMATED METHOD 06/26/2024 1:02 PM [facility] Hyaline Casts, Urine 0.0 0 - 3 /LPF LAB URINALYSIS - AUTOMATED METHOD 06/26/2024 1:02 PM [facility] Urine Urine specimen obtained by clean catch procedure / Unknown 06/26/2024 8:54 AM EST 06/26/2024 12:36 PM EST us Filiberto Page MD LAB URINE ORDERABLES Final Resu lt [facility] [address] [place] [address], * (ABNORMAL) Culture urine (06/26/2024 8:54 AM EST) Culture, Urine >100,000 CFU/mL Staphylococcus epidermidis(A) CARLOS 06/28/2024 12:12 PM [facility] Comment: Edited result: Previously reported [...] MICROBIOLOGY - GENERAL KATHY ARGUETA Final Result [facility] ([facility] [address] [place] [address], documented in this encounter Visit Diagnoses Diagnosis Bladder-neck obstruction Urinary tract infection, site not specified documented in this encounter Care Teams Stain Wiper Relationship Specialty Start Date End Date Marshal Cabrales DO [address] [place] [phone] PCP - General Internal Medicine 07/21/20 documented as of this encounter
--- NOTE | 2025-03-22 10:24 | HO.ANESPROP2 ---
Documented by User: Lynda Ortiz NP 03/22/25 10:25 HPI - Anesthesia Eval Consult details Narrative: 69 yr old male for colonoscopy PMF Active Problems Active Problems: All Active Problems Floaters in visual field (Acute) Peripheral edema (Acute) Elevated parathyroid hormone (Acute) S/P TURP (Acute) BPH loc w/o ur obs/LUTS (Acute) Obstructed, uropathy (Acute) Enlarged prostate (Acute) Bilateral hydronephrosis (Acute) CKD (chronic kidney disease) (Acute) Mild hypercholesterolemia (Acute) Renal insufficiency (Acute) Elevated PSA (Acute) Scoliosis (Acute) Basal cell carcinoma (Acute) Hypertension (Acute) Past Medical History Medical History Floaters in visual field Peripheral edema Elevated parathyroid hormone BPH loc w/o ur obs/LUTS Intermittent self-catheterization of bladder Obstructed, uropathy Enlarged prostate Bilateral hydronephrosis Hypertension Basal cell carcinoma Scoliosis Elevated PSA Renal insufficiency Mild hypercholesterolemia Family History Family History Maternal Grandfather Diabetes Father Colon cancer Surgical History Surgical History Hx of basal cell carcinoma excision History of surgical removal of ganglion cyst History of colonoscopy (~09/14/19) S/P TURP Social History Social History Household Members: Friend(s) Housing: House Alcohol intake: current Alcohol intake frequency: does not drink Patient Tobacco Use Status: Never used Tobacco e-Cigarette/Vaping Use: Never Used Have you been hit, kicked, punched, or otherwise hurt by someone within the past year? If so, by whom?: No Are you DNR?: No Advance Directives: No Advance Directives Information Provided: Yes Current occupational status: retired Cognitive needs: No Hearing needs: No Vision needs: Yes Meds Allergies Allergy/AdvReac Type Severity Reaction Status Date / Time Sulfa (Sulfonamide Allergy Hives Verified 10/23/24 09:05 Antibiotics) Home Medications ?Medication ?Instructions ?Recorded ?Confirmed ?Last Taken ?Type coenzyme Q10 200 mg capsule 200 mg PO DAILY 07/22/24 03/22/25 Unknown History multivitamin with minerals 1 cap PO DAILY 07/22/24 03/22/25 Unknown History Exam Pertinent Lab Results Pertinent Lab Results: Laboratory Tests 07/22/24 12/03/24 10:32 13:12 WBC 12.0 H RBC 3.99 L Hgb 12.3 L Hct 37.8 L Plt Count 546 H Sodium 141 Potassium 3.8 Chloride 105 Carbon Dioxide 26 BUN 26 H Creatinine 1.94 H Documented by User: Shlomo Anderson MD 03/24/25 10:18 PMFSH Past Medical History Medical History Floaters in visual field Peripheral edema Elevated parathyroid hormone BPH loc w/o ur obs/LUTS Intermittent self-catheterization of bladder Obstructed, uropathy Enlarged prostate Bilateral hydronephrosis Hypertension Basal cell carcinoma Scoliosis Elevated PSA Renal insufficiency Mild hypercholesterolemia Functional capacity: independent ambulation Family History Family History Maternal Grandfather Diabetes Father Colon cancer Family history of problems with anesthesia: No Surgical History Surgical History Hx of basal cell carcinoma excision History of surgical removal of ganglion cyst History of colonoscopy (~09/14/19) S/P TURP History of Problems with Anesthesia: No Social History Social History Household Members: Friend(s) Housing: House Alcohol intake: current Alcohol intake frequency: does not drink Patient Tobacco Use Status: Never used Tobacco e-Cigarette/Vaping Use: Never Used Have you been hit, kicked, punched, or otherwise hurt by someone within the past year? If so, by whom?: No Are you DNR?: No Advance Directives: No Advance Directives Information Provided: Yes Current occupational status: retired Cognitive needs: No Hearing needs: No Vision needs: Yes Meds Allergies Allergy/AdvReac Type Severity Reaction Status Date / Time Sulfa (Sulfonamide Allergy Hives Verified 10/23/24 09:05 Antibiotics) Home Medications ?Medication ?Instructions ?Recorded ?Confirmed ?Last Taken ?Type coenzyme Q10 200 mg capsule 200 mg PO DAILY 07/22/24 03/22/25 Unknown History multivitamin with minerals 1 cap PO DAILY 07/22/24 03/22/25 Unknown History Exam Exam Date and Time: 03/24/2025 Airway TM Dist: >3cm Heart: normal Lungs: normal Other: normal Assessment and Plan Assessment Anesthesia Assessment: Anesthesia Plan Discussed Final Anesthetic Review Family History of Problems with Anesthesia: No History of Problems with Anesthesia: No NPO: Yes ASA Class: II Final Preanesthetic Review: No Changes in Pt Med Stat, Meds/Allgs Chart Reviewed, Consent Obtained/Reviewed and Anes Risks/Benef Reviewed Patient Risk: Low Procedure Risk: Low Anesthetic Plan Anesthetic Plan: MAC: Disposition: Standard PACU
[2025-03-22 14:13] VITALS: BMI 24.4
[2025-03-24 09:36] VITALS: BP 161/95; PULSE 94; RESP 17; TEMP 36.1; O2SAT 98; BMI 23.1
[2025-03-24] MEDS: Lactated Ringers 1,000 ML 100 ML IVCONT (09:52)
[2025-03-24 11:48] VITALS: BP 123/83; PULSE 84; RESP 16; TEMP 36.4; O2SAT 97
--- NOTE | 2025-03-24 11:51 | P.BOP_ITS ---
Brief Operative Note Date of Service: 03/24/25 Pre-op diagnosis: Screening Post-op diagnosis: other (Polyps) Procedure: Colonoscopy to the cecum and TI with bx/removal of cecal polyps x 2, and hot snare polypectomy at 30cm Surgeon: Marshal Ramirez MD Anesthesia: MAC Was an Lithographic General Worker used for this Procedure?: No Estimated blood loss (mL): 2.0 Pathology: other (A. Cecal polyps B. Polyp at 30cm) Condition: stable Disposition: PACU
[2025-03-24 12:00] VITALS: BP 132/87; PULSE 78; RESP 16; O2SAT 97
--- NOTE | 2025-03-24 13:31 | OP_ITS ---
DATE OF SERVICE: 03/24/2025 SURGEON: Marshal Ramirez MD INDICATIONS: The patient presents for evaluation of colorectal cancer screening, personal history of tubular adenoma of the colon, and family history of colon cancer. Full consent has been obtained from him for this, including risks of bleeding and perforation. PREOPERATIVE DIAGNOSIS: POSTOPERATIVE DIAGNOSIS: PROCEDURE PERFORMED: ESTIMATED BLOOD LOSS: COMPLICATIONS: ANESTHESIA: Medication used, monitored anesthesia care. ASSISTANTS: SPECIMENS: PREOPERATIVE DIAGNOSES: Colorectal cancer screening, personal history of tubular adenomas, and family history of colon cancer. POSTOPERATIVE DIAGNOSES: Colorectal cancer screening, personal history of tubular adenomas, and family history of colon cancer, colon polyps, diverticulosis, and internal hemorrhoids. PROCEDURES PERFORMED: Colonoscopy to the cecum and terminal ileum with biopsy and removal of cecal polyps and a hot snare polypectomy. DESCRIPTION OF PROCEDURE: The patient was placed in the left lateral decubitus position. The digital rectal exam revealed no abnormalities. The Oscar video pediatric colonoscope was entered into the rectum and advanced easily to the cecum. Once in the cecum, I did identify normal-appearing cecal pouch other than 2 less than 5 mm polyps. Both of these were biopsied and completely removed with a cold biopsy forceps. The remainder the cecum including the appendiceal orifice appeared normal. The ileocecal valve appeared normal. The terminal ileum was cannulated and appeared normal. Scope was withdrawn back in the colon. The scope was slowly withdrawn assessing all mucosal surfaces carefully. Preparation was excellent. At 30 cm was a flat, but raised approximately 10 to 12 mm grossly adenomatous polyp, which was removed by hot snare polypectomy, recovered by suction. The polypectomy site appeared clean, without any sign of residual polyp nor bleeding. There was a mild amount of sigmoid diverticulosis. I did not visualize any sign of other polyps, colitis, nor angiodysplasia. In the rectum, scope was retroflexed visualizing prominent internal hemorrhoidal tissues with some inflammatory component and minimal friability. There was no mass. The scope was straightened and withdrawn from the patient. He tolerated the procedure well and was returned to the recovery area in stable condition. IMPRESSION: 1. Colon polyps. 2. Diverticulosis. 3. Internal hemorrhoids. PLAN: The results of the pathology will be checked, I would recommend a repeat colonoscopy within 5 years for further screening and surveillance. He was advised not to use any aspirin nor NSAIDs for 1 more week. MD DEYSI Davila/CORI / [id number]
== END 2025-03-24 12:49 | disposition home or self-care (01) ==
PROVIDERS: PCP Internal Medicine; Visit Provider Internal Medicine
PROC: 0DJD8ZZ Inspection of Lower Intestinal Tract, Via Natural or Artificial Opening Endoscopic (ICD-10-PCS; CPT 45378; principal; 2025-03-24 10:40)
DX: Z12.11 Encounter for screening for malignant neoplasm of colon (principal); Z80.0 Family history of malignant neoplasm of digestive organs; Z86.0101 Personal history of adenomatous and serrated colon polyps; D12.0 Benign neoplasm of cecum; D12.5 Benign neoplasm of sigmoid colon; K57.30 Diverticulosis of large intestine without perforation or abscess without bleeding; K64.8 Other hemorrhoids; I10 Essential (primary) hypertension; Z85.828 Personal history of other malignant neoplasm of skin; Z79.899 Other long term (current) drug therapy; Z88.2 Allergy status to sulfonamides; Z98.890 Other specified postprocedural states
CPT/HCPCS: 45385; 45380; 88305; J2003; J2704; J3010

== ENCOUNTER 2025-04-21 09:02 | Outpatient (AMB) | payer MEDICARE, SELFPAY ==
--- NOTE | 2025-04-21 09:07 | MHC.PC.OV ---
Vital Signs 04/21/25 09:13 Height 6 ft 1 in Weight 185 lb BMI 24.4 BP 141/85 H Blood Pressure Location Rt brachial Position Sitting Respiration 16 Pulse 90 Pulse Source Pulse Oximeter Temp 97.3 F Temp Source Temporal Artery Scan Pulse Oximetry (%) 100 Oxygen Delivery Method Room Air Intake Visit Reasons: annual physical - see comments Customer Operations Representative Required: No Accompanied by: Self / Same As Patient Allergies Sulfa (Sulfonamide Antibiotics) Allergy (Verified 04/21/25 12:49) Hives Medication List - Last Reconciled 04/21/25 by Liliana Johnson PA-C amlodipine 10 mg PO DAILY coenzyme Q10 200 mg PO DAILY multivitamin with minerals 1 cap PO DAILY Tobacco use date assessed: 10/23/24 Dental Screening Dental Screen Date: 10/23/24 HPI HPI Comments History of Present Illness Details History of Present Illness The patient is a 69 year old male presenting for his annual physical examination. He has a history of chronic kidney disease, with his last GFR noted to be 35, which was a decline, and his creatinine was previously noted to be improving. Diagnoses considered included acute kidney injury due to obstructive uropathy secondary to BPH and underlying hypertensive nephrosclerosis. The patient has proactively made dietary modifications, including cutting out salt, red meat, dark orquidea, bananas, and avocados. He was previously on ramipril and Bactrim, a sulfa drug, both of which have been discontinued due to potential kidney effects. He denies recent hospitalizations or falls. For his history of BPH, the patient underwent a transurethral resection of the prostate (TURP). Post-procedure, he reports a strong urinary stream but experiences retrograde ejaculation, which involves fluid going into the bladder and being voided later; he reports only a small dribble during ejaculation. His urologist, Dr. Page, described this as a typical outcome. Regarding health maintenance, he confirmed a recent colonoscopy with the next one due in 2024. He is a never-smoker. Social History - Employment: The patient is retired. 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 - Substance Use: He is a never smoker. - Diet: He has cut out salt, red meat, dark orquidea, bananas, and avocados to manage his kidney health. - Functional Status: He is independent with all activities of daily living. - Family and Social Support: The patient's son, who previously struggled with major depression and suicide attempts, is now doing much better on lithium and has been working with his father on the [employer] projects. - The patient denies any current feelings of depression. [facility] Medical History (Updated 04/21/25 @ 12:55 by Liliana Johnson PA-C) CKD (chronic kidney disease) stage 3, GFR 30-59 ml/min Annual physical exam Floaters in visual field Peripheral edema Elevated parathyroid hormone BPH loc w/o ur obs/LUTS Intermittent self-catheterization of bladder Obstructed, uropathy Enlarged prostate Bilateral hydronephrosis Hypertension Basal cell carcinoma Scoliosis Elevated PSA Renal insufficiency Mild hypercholesterolemia Surgical History (Updated 04/21/25 @ 12:55 by Liliana Johnson PA-C) History of transurethral resection of prostate Hx of basal cell carcinoma excision History of surgical removal of ganglion cyst History of colonoscopy (03/25/25) S/P TURP Family History Maternal Grandfather Diabetes Father Colon cancer Social History Household Members: Friend(s) Housing: House Alcohol intake: current Alcohol intake frequency: does not drink Patient Tobacco Use Status: Never used Tobacco e-Cigarette/Vaping Use: Never Used Current occupational status: retired Cognitive needs: No Hearing needs: No Vision needs: Yes Questionnaire PHQ-9 Over the last 2 weeks, how often have you been bothered by any of the following problems? 1. Little interest or pleasure in doing things: not at all 2. Feeling down, depressed, or hopeless: not at all 3. Trouble falling or staying asleep, or sleeping too much: not at all 4. Feeling tired or having little energy: not at all 5. Poor appetite or overeating: not at all 6. Feeling bad about yourself - or that you are a failure or have let yourself or your family down: not at all 7. Trouble concentrating on things, such as reading the newspaper or watching television: not at all 8. Moving or speaking so slowly that other people could have noticed. Or the opposite - being so fidgety or restless that you have been moving around a lot more than usual: not at all 9. Thoughts that you would be better off or of hurting yourself in some way: not at all Total score: 0 Depression Screening Interpretation: Negative Depression Screening Done: Yes 32027 - PHQ-9 Billing: Yes Source: Developed by Drs. Marshal Gaspar, Saima Owen, Sina Solis and colleagues, with an educational oleksandr from [employer]. Thrive Questionnaire Date Thrive assessed: 10/23/24 I am a: Patient What is your living situation today?: I have a steady place to live Within the past 12 months, did the food you bought not last and you didn't have the money to get more?: Never true Within the past 12 months, did you worry whether your food would run out before you got money to buy more?: Never true Do you have trouble paying for medicines?: No Do you have trouble getting transportation to medical appointments?: No Do you have trouble paying your heating and electricity bill?: No Do you have trouble taking care of your child, family member or friend?: No Do you have trouble with day-to-day activities such as bathing, preparing meals, shopping, managing finances, etc.?: No Are you currently unemployed and looking for a job?: No Are you interested in more education?: No THRIVE Score: 0 AUDIT C Alcohol Use Questionnaire (AUDIT-C) 1. How often do you have a drink containing alcohol?: Monthly or less 2. How many drinks containing alcohol do you have on a typical day when you are drinking?: 1 or 2 3. How often do you have six or more drinks on one occasion?: Never Total Score: 1 Score Reviewed/Action Taken: No NI-7 AMB Questionnaire NI-7 Date NI - 7 assessed: 10/23/24 Source: Developed by Drs. Marshal Gaspar, Saima Owen, Sina Solis and colleagues, with an educational oleksandr from [employer]. Review of Systems Narrative Review of Systems - Cardiovascular: Denies chest pain or shortness of breath. - Genitourinary: Reports strong urination but experiences retrograde ejaculation. - Musculoskeletal: Reports occasional muscle cramps after strenuous work and a resolved episode of calf swelling after being on a ladder for an extended period. - Constitutional: Denies recent falls. - All other systems reviewed and are negative. Const All systems reviewed & are unremarkable except as noted in HPI and below Physical exam (Primary Care) Vital Signs: Last Vital Signs Temp 97.3 F 04/21/25 09:13 Pulse 90 04/21/25 09:13 Resp 16 04/21/25 09:13 BP 141/85 H 04/21/25 09:13 Pulse Ox 100 04/21/25 09:13 Oxygen Delivery Method Room Air 04/21/25 09:13 Care Plan Goal for BP management: <140/90 patient to continue amlodipine 10 mg daily. Will reach out to ballet teacher for further plan due to patient's blood pressure is mildly elevated at 141/85. BMI result Body Mass Index 24.4 Normal BMI Tobacco/Smoking Status: Tobacco use Status Tobacco use date assessed 10/23/24 04/21/25 09:12 Patient Tobacco Use Status Never used Tobacco 04/21/25 09:12 e-Cigarette/Vaping Use Never Used 04/21/25 09:12 PHQ-9: PHQ-9 Score PHQ-9: Total score 0 04/21/25 09:43 Depression Screening Interpretation: Negative Thrive Assessment: Date of Thrive Assessment Date Thrive assessed 10/23/24 04/21/25 09:12 Narrative Physical Exam Appearance: Alert. Oriented X3. No acute distress. Head: Normal external exam. Normocephalic. Atraumatic. Eyes: Pupils are equal, round, and reactive to light. Extraocular movements intact. Conjunctiva and sclera normal. Eyelids normal. Ears: External auditory canal normal. Tympanic membranes normal. Throat: Pharynx normal. Uvula midline. Moist mucous membranes. Neck: Normal inspection. Neck supple. Full range of motion. No adenopathy. Thyroid Normal. No meningeal signs. No neck mass noted. Cardiovascular: Normal heart rate and rhythm. Heart sound normal. No murmurs noted. Pulses normal throughout. Respiratory: No respiratory distress. Painless inspiration. Breath sounds normal. No wheezes/rales/rhonchi noted. Chest nontender. No accessory muscle usage noted or decreased air movement noted. Abdomen: Soft and nontender. Bowel sounds normal in all 4 quadrants. No distention noted. No organomegaly noted. No visible injury noted. Back: No costovertebral angle tenderness. Full range of motion noted. Skin: Skin warm and dry. Normal skin color. Normal skin turgor. No rashes/lesions/lacerations noted. Extremities: No lower extremity edema. Extremities exhibit normal range of motion. Extremities nontender. Neuro: Oriented X 3. No motor deficit. No sensory deficit. Reflexes normal. Results Reviewed Results Reviewed: Results - Laboratory: Last eGFR was 35. - Prior eGFR was in the 50-55 range. - Procedures: Colonoscopy was completed recently; next screening is due in 2024. Coding Level of Care Code Est Pt Prev Care >65y(54452) Add On Preventative Visit Only Diagnoses Annual physical exam Z00.00 CKD (chronic kidney disease) stage 3, GFR 30-59 ml/min N18.30 Hypertension I10 History of transurethral resection of prostate Z98.890; Z90.79 Additional Codes PHQ-9 - 54421 - PHQ-9 Billing: Yes ([id number]) Time Spent (min) 65 Assessment & Plan Assessment & Plan (1) Annual physical exam: Code(s): Z00.00 - Encounter for general adult medical examination without abnormal findings Category: Medical Plan: The patient presents for his annual physical. Fasting labs will be ordered, including a cholesterol panel, hemoglobin A1c, thyroid panel, and PSA. His colonoscopy is up to date, with the next one due in 2024. Follow-up will be arranged based on lab results. (2) CKD (chronic kidney disease) stage 3, GFR 30-59 ml/min: Code(s): N18.30 - Chronic kidney disease, stage 3 unspecified Category: Medical Plan: The patient has a history of CKD with a last GFR of 35. He has proactively modified his diet by reducing salt, red meat, and potassium intake. Fasting blood work, including CBC, CMP, magnesium, vitamin B12, vitamin D, and a urine lljjyxr-wu-bopqsixhnk ratio, will be ordered to reassess kidney function. If the lab results are concerning, he will be advised to follow up with nephrology. For muscle cramps related to physical exertion, it was suggested he use hydration/electrolyte packets. (3) Hypertension: Code(s): I10 - Essential (primary) hypertension Category: Medical Plan: The patient's blood pressure is noted to be well-controlled at home but borderline elevated in the office. He will continue on amlodipine 10 mg, and no additional medications like hydralazine will be added at this time to avoid affecting his kidneys. (4) History of transurethral resection of prostate: Code(s): Z98.890 - Other specified postprocedural states; Z90.79 - Acquired absence of other genital organ(s) Category: Surgical Plan: The patient is status post-TURP for BPH and reports good urinary flow but has retrograde ejaculation, which his urologist had advised is a typical outcome. Reassurance was provided and no further intervention is planned. Plan Plan Patient was informed and verbally consented to the use of an ambient scribe for clinic note documentation during this visit. 1. Chronic Kidney Disease The patient has a history of CKD with a last GFR of 35. He has proactively modified his diet by reducing salt, red meat, and potassium intake. Fasting blood work, including CBC, CMP, magnesium, vitamin B12, vitamin D, and a urine zijnxta-pw-gtbprodlii ratio, will be ordered to reassess kidney function. If the lab results are concerning, he will be advised to follow up with nephrology. For muscle cramps related to physical exertion, it was suggested he use hydration/electrolyte packets. 2. Essential Hypertension The patient's blood pressure is noted to be well-controlled at home but borderline elevated in the office. He will continue on amlodipine 10 mg, and no additional medications like hydralazine will be added at this time to avoid affecting his kidneys. 3. Annual Physical Examination The patient presents for his annual physical. Fasting labs will be ordered, including a cholesterol panel, hemoglobin A1c, thyroid panel, and PSA. His colonoscopy is up to date, with the next one due in 2024. Follow-up will be arranged based on lab results. 4. Status Post-Turp With Retrograde Ejaculation The patient is status post-TURP for BPH and reports good urinary flow but has retrograde ejaculation, which his urologist had advised is a typical outcome. Reassurance was provided and no further intervention is planned. Discussion Notes I discussed with the patient that we will recheck his kidney function with comprehensive blood work, as it has been about six months since his last labs. I explained that kidney function can improve with the dietary changes he has made and that we will see the results. We reviewed the plan to order a CBC, CMP, cholesterol panel, hemoglobin A1c, magnesium, vitamins B12 and D, thyroid panel, and PSA. I recommended that he continue to be followed by a ballet teacher, and we will wait for the lab results before making a formal appointment. I reassured him that his blood pressure is adequately controlled on his current medication and that no changes are needed at this time. I will send him a message with his results and advise on whether a sooner follow-up is needed. Orders: Orders Complete Blood Count Auto Diff Today Z00.00 - Encounter for general adult medical examination without abnormal findings Magnesium Today Z00.00 - Encounter for general adult medical examination without abnormal findings Lipid Panel Today Z00.00 - Encounter for general adult medical examination without abnormal findings Vitamin D 25-OH Total Today Z00.00 - Encounter for general adult medical examination without abnormal findings UA CC w/rflx Micro + Cult Today Z00.00 - Encounter for general adult medical examination without abnormal findings C Reactive Protein Today Z00.00 - Encounter for general adult medical examination without abnormal findings Comprehensive [place]. Panel Fast Today Z00.00 - Encounter for general adult medical examination without abnormal findings Vitamin B12 and Folate Today Z00.00 - Encounter for general adult medical examination without abnormal findings TSH reflex Free T4 Today Z00.00 - Encounter for general adult medical examination without abnormal findings PSA,Total (Free>4and<10) Today Z00.00 - Encounter for general adult medical examination without abnormal findings Erythrocyte Sedimentation Rate Today Z00.00 - Encounter for general adult medical examination without abnormal findings Hemoglobin A1c Today Z00.00 - Encounter for general adult medical examination without abnormal findings Microalbumin, Random (w Creat) Today E11.9 - Type 2 diabetes mellitus without complications Patient Instructions: Patient Instructions - Please go for fasting blood work, preferably this week. - You should not eat or drink anything besides water for at least 8 hours before the test. - Continue taking your amlodipine for blood pressure as prescribed. - You can use hydration packets in your water to help with muscle cramps after doing strenuous work. - I will contact you with your lab results to determine our next steps, which may include a referral to a kidney specialist. - Please let us know if you develop any concerning symptoms, such as pain in your back or flank area where your kidneys are located. - Please schedule your annual physical for next year at the manager front.
[2025-04-21 09:13] VITALS: BP 141/85; PULSE 90; RESP 16; TEMP 36.3; O2SAT 100; BMI 24.4
--- OUTSIDE RECORDS SUMMARY | 2025-04-21 09:54 | XMS_ITS | Clinical Summary ---
Author Organization LL [address] [place] [address] Address [address] [place] [address] Phone Care Team Providers Care Mold Yarn Supervisor Name Role Phone Marshal Cabrales DO Primary Care Provider [phone] Medical History Medical History Date Comments Essential [...] on file Sexual Orientation Not on file Plan of Treatment Health Maintenance Due Date [...] Influencers of Health Screening 06/26/2024 COVID-19 Vaccine ( - 2024-2 6 season) 2025 Influenza Vaccine (#1) 2025 RSV [...] CROSS - [place] MEDIC[place] Care Teams Mold Yarn Supervisor Relationship Specialty Start Date End Date Marshal Cabrales DO [address] [place] [phone] PCP - General Internal Medicine 07/21/20
--- OUTSIDE RECORDS SUMMARY | 2025-04-21 09:54 | XMS_ITS | Encounter Summary ---
Author Organization [facility] Address [address] [place] [address] Care Team Providers Care Fugitive Detective Name Role Phone Marshal Cabrales DO Primary Care Provider [phone] Encounter Details Date Type Department Care Team (Late st Contact Info) Description 06/26/2024 Lab Requisition [facility] - Main Lab [address] [facility] [place] [address] Filiberto Page MD [address] [place] [address] Bladder-neck obstruction; Urinary tract infection, [...] Complete blood count (06/26/2024 8:54 AM EST) [facility] WBC 7.0 4.8 - 10.8 K/mcL LAB HEMETOLOGY METHOD 06/26/2024 12:52 PM [facility] RBC 4.00(L) 4.50 - 5.50 M/mcL LAB HEMETOLOGY METHOD 06/26/2024 12:52 PM [facility] Hemoglobin 12.5(L) 13.5 - 17.5 g/dL LAB HEMETOLOGY METHOD 06/26/2024 12:52 PM [facility] Hematocrit 38.0(L) 42.0 - 54.0 % LAB HEMETOLOGY METHOD 06/26/2024 12:52 PM [facility] MCV 95.2 79.0 - 98.0 FL LAB HEMETOLOGY METHOD 06/26/2024 12:52 PM [facility] MCH 31.3 27.0 - 32.0 pcg LAB HEMETOLOGY METHOD 06/26/2024 12:52 PM [facility] MCHC 32.9 32.0 - 37.0 g/dL LAB HEMETOLOGY METHOD 06/26/2024 12:52 PM [facility] RDW 14.7 11.0 - 15.0 % LAB HEMETOLOGY METHOD 06/26/2024 12:52 PM [facility] Platelets 367 130 - 400 K/mcL LAB HEMETOLOGY METHOD 06/26/2024 12:52 PM [facility] MPV 9.4 7.0 - 11.0 FL LAB HEMETOLOGY METHOD 06/26/2024 12:52 PM [facility] NRBC 0.0 <1.0 % LAB HEMETOLOGY METHOD 06/26/2024 12:52 PM [facility] NRBC Absolute 0.00 <0.10 K/mcL LAB HEMETOLOGY METHOD 06/26/2024 12:52 PM [facility] Blood Venous blood specimen / Unknown 06/26/2024 8:54 AM EST 06/26/2024 12:36 PM EST us Filiberto Page MD LAB BLOOD ORDERABLES Final Resu lt [facility] [address] [place] [address], [place] [phone] * (ABNORMAL) Urinalysis with reflex microscopic (06/26/2024 8:54 AM EST) Specific [place] Urine 1.016 1.003 - 1.030 LAB URINALYSIS - AUTOMATED METHOD 06/26/2024 1:02 PM [facility] pH, Urine 6.0 5.0 - 8.0 pH LAB URINALYSIS - AUTOMATED METHOD 06/26/2024 1:02 PM [facility] Leukocytes, Urine Moderate(A) Negative LAB URINALYSIS - AUTOMATED METHOD 06/26/2024 1:02 PM [facility] Nitrite, Urine Negative Negative LAB URINALYSIS - AUTOMATED METHOD 06/26/2024 1:02 PM [facility] Protein, Urine Negative <=Trace mg/dL LAB URINALYSIS - AUTOMATED METHOD 06/26/2024 1:02 PM [facility] Glucose, Urine Negative Negative mg/dL LAB URINALYSIS - AUTOMATED METHOD 06/26/2024 1:02 PM [facility] Ketones, Urine Negative Negative mg/dL LAB URINALYSIS - AUTOMATED METHOD 06/26/2024 1:02 PM [facility] Urobilinogen , Urine 0.2 0.2 - 1.0 mg/dL LAB URINALYSIS - AUTOMATED METHOD 06/26/2024 1:02 PM [facility] Bilirubin, Urine Negative Negative LAB URINALYSIS - AUTOMATED METHOD 06/26/2024 1:02 PM [facility] Blood, Urine Negative Negative LAB URINALYSIS - AUTOMATED METHOD 06/26/2024 1:02 PM [facility] RBC, Urine 1.5 0 - 4 /HPF LAB URINALYSIS - AUTOMATED METHOD 06/26/2024 1:02 PM [facility] WBC, Urine 23.9(H) 0 - 4 /HPF LAB URINALYSIS - AUTOMATED METHOD 06/26/2024 1:02 PM [facility] Squamous Epithelial, Urine 37 0 - 60 /LPF LAB URINALYSIS - AUTOMATED METHOD 06/26/2024 1:02 PM [facility] Bacteria, Urine Negative Negative /HPF LAB URINALYSIS - AUTOMATED METHOD 06/26/2024 1:02 PM [facility] Hyaline Casts, Urine 0.0 0 - 3 /LPF LAB URINALYSIS - AUTOMATED METHOD 06/26/2024 1:02 PM [facility] Urine Urine specimen obtained by clean catch procedure / Unknown 06/26/2024 8:54 AM EST 06/26/2024 12:36 PM EST us Filiberto Page MD LAB URINE ORDERABLES Final Resu lt [facility] [address] [place] [address], * (ABNORMAL) Culture urine (06/26/2024 8:54 AM EST) Culture, Urine >100,000 CFU/mL Staphylococcus epidermidis(A) CARLOS 06/28/2024 12:12 PM [facility] Comment: Edited result: Previously [...] MICROBIOLOGY - GENERAL KATHY ARGUETA Final Result [facility] [address] [place] [address], documented in this encounter Visit Diagnoses Diagnosis Bladder-neck obstruction Urinary tract infection, site not specified documented in this encounter Care Teams Fugitive Detective Relationship Specialty Start Date End Date Marshal Cabrales DO [address] [place] [phone] PCP - General Internal Medicine 07/21/20 documented as of this encounter
== END 2025-04-21 10:07 | disposition home or self-care (01) ==
PROVIDERS: PCP Physician Assistant Medical; Visit Provider Physician Assistant Medical
DX: Z00.00 Encounter for general adult medical examination without abnormal findings (principal); I12.9 Hypertensive chronic kidney disease with stage 1 through stage 4 chronic kidney disease, or unspecified chronic kidney disease; N18.30 Chronic kidney disease, stage 3 unspecified; Z98.890 Other specified postprocedural states; Z90.79 Acquired absence of other genital organ(s)

== ENCOUNTER → 2025-04-21 09:02 | Outpatient (BNVA) | payer MEDICARE, SELFPAY | PROVIDERS: PCP Physician Assistant Medical; Visit Provider Physician Assistant Medical | DX: Z00.00 Encounter for general adult medical examination without abnormal findings (principal); N53.14 Retrograde ejaculation; I12.9 Hypertensive chronic kidney disease with stage 1 through stage 4 chronic kidney disease, or unspecified chronic kidney disease; N18.30 Chronic kidney disease, stage 3 unspecified; Z98.890 Other specified postprocedural states; Z90.79 Acquired absence of other genital organ(s) | CPT/HCPCS: 96127; 99397 ==

== ENCOUNTER 2025-04-22 07:13 | Outpatient (REF) | payer MEDICARE, SELFPAY ==
--- OUTSIDE RECORDS SUMMARY | 2025-03-24 05:40 | XMS_ITS ---
Author Organization [facility] Address [address] [place] [phone] Care Team Providers Care Flare Man Name Role Phone DIAMOND JAIN Primary Care Provider Marshal Moyer [phone] REASON FOR VISIT screening,fam hx colon ca, hx adenomatouos polyps Encounters Encounter Location Date Provider Diagnosis [facility] Outpatient [address] [place] [phone] 03/24/2025 Marshal Ramirez Plan Of Treatment No Information Progress Notes * NANNETTE LINDOB:1955 ([age] yo M)Acc No.[id number]:03/24/2025 COLON WITH MAC Patient: NANNETTE DESIR Provider: Michael Ramirez MD :1955 A ge:69 Y S ex:Male Date:03/24/2025 Address:[address] [place], [place] [phone] Pcp:DIAMOND JAIN Subjective: * Chief Complaints: * S creening,fam hx colon ca, hx adenomatouos polyps * The named appointment provid er may or may not be the originator of this progress note, and it is not deemed complete until electronically signed by the appointment provider. Sign off status: Pending * Provider: Michael Ramirez MD Date: 05/24/2024 Generated for Mitrai ng/Fanadineg/eTransmitting on: 06/23/2024 07:15 AM EST
--- OUTSIDE RECORDS SUMMARY | 2025-04-22 07:15 | XMS_ITS | Encounter Summary ---
Author Organization [facility] Address [address] [place] [address] Care Team Providers Care Animal Control Specialist Name Role Phone Marshal Cabrales DO Primary Care Provider [phone] Encounter Details Date Type Department Care Team (Late st Contact Info) Description 06/26/2024 Lab Requisition [facility] - Main Lab [address] [facility] [place] [address] Filiberto Page MD [address] [place] [address] Bladder-neck obstruction; Urinary tract infection, [...] Complete blood count (06/26/2024 8:54 AM EST) [facility] WBC 7.0 4.8 - 10.8 K/mcL LAB HEMETOLOGY METHOD 06/26/2024 12:52 PM [facility] RBC 4.00(L) 4.50 - 5.50 M/mcL LAB HEMETOLOGY METHOD 06/26/2024 12:52 PM [facility] Hemoglobin 12.5(L) 13.5 - 17.5 g/dL LAB HEMETOLOGY METHOD 06/26/2024 12:52 PM [facility] Hematocrit 38.0(L) 42.0 - 54.0 % LAB HEMETOLOGY METHOD 06/26/2024 12:52 PM [facility] MCV 95.2 79.0 - 98.0 FL LAB HEMETOLOGY METHOD 06/26/2024 12:52 PM [facility] MCH 31.3 27.0 - 32.0 pcg LAB HEMETOLOGY METHOD 06/26/2024 12:52 PM [facility] MCHC 32.9 32.0 - 37.0 g/dL LAB HEMETOLOGY METHOD 06/26/2024 12:52 PM [facility] RDW 14.7 11.0 - 15.0 % LAB HEMETOLOGY METHOD 06/26/2024 12:52 PM [facility] Platelets 367 130 - 400 K/mcL LAB HEMETOLOGY METHOD 06/26/2024 12:52 PM [facility] MPV 9.4 7.0 - 11.0 FL LAB HEMETOLOGY METHOD 06/26/2024 12:52 PM [facility] NRBC 0.0 <1.0 % LAB HEMETOLOGY METHOD 06/26/2024 12:52 PM [facility] NRBC Absolute 0.00 <0.10 K/mcL LAB HEMETOLOGY METHOD 06/26/2024 12:52 PM [facility] Blood Venous blood specimen / Unknown 06/26/2024 8:54 AM EST 06/26/2024 12:36 PM EST us Filiberto Page MD LAB BLOOD ORDERABLES Final Resu lt [facility] [address] [place] [address], [place] [phone] * (ABNORMAL) Urinalysis with reflex microscopic (06/26/2024 8:54 AM EST) Specific [place] Urine 1.016 1.003 - 1.030 LAB URINALYSIS - AUTOMATED METHOD 06/26/2024 1:02 PM [facility] pH, Urine 6.0 5.0 - 8.0 pH LAB URINALYSIS - AUTOMATED METHOD 06/26/2024 1:02 PM [facility] Leukocytes, Urine Moderate(A) Negative LAB URINALYSIS - AUTOMATED METHOD 06/26/2024 1:02 PM [facility] Nitrite, Urine Negative Negative LAB URINALYSIS - AUTOMATED METHOD 06/26/2024 1:02 PM [facility] Protein, Urine Negative <=Trace mg/dL LAB URINALYSIS - AUTOMATED METHOD 06/26/2024 1:02 PM [facility] Glucose, Urine Negative Negative mg/dL LAB URINALYSIS - AUTOMATED METHOD 06/26/2024 1:02 PM [facility] Ketones, Urine Negative Negative mg/dL LAB URINALYSIS - AUTOMATED METHOD 06/26/2024 1:02 PM [facility] Urobilinogen , Urine 0.2 0.2 - 1.0 mg/dL LAB URINALYSIS - AUTOMATED METHOD 06/26/2024 1:02 PM [facility] Bilirubin, Urine Negative Negative LAB URINALYSIS - AUTOMATED METHOD 06/26/2024 1:02 PM [facility] Blood, Urine Negative Negative LAB URINALYSIS - AUTOMATED METHOD 06/26/2024 1:02 PM [facility] RBC, Urine 1.5 0 - 4 /HPF LAB URINALYSIS - AUTOMATED METHOD 06/26/2024 1:02 PM [facility] WBC, Urine 23.9(H) 0 - 4 /HPF LAB URINALYSIS - AUTOMATED METHOD 06/26/2024 1:02 PM [facility] Squamous Epithelial, Urine 37 0 - 60 /LPF LAB URINALYSIS - AUTOMATED METHOD 06/26/2024 1:02 PM [facility] Bacteria, Urine Negative Negative /HPF LAB URINALYSIS - AUTOMATED METHOD 06/26/2024 1:02 PM [facility] Hyaline Casts, Urine 0.0 0 - 3 /LPF LAB URINALYSIS - AUTOMATED METHOD 06/26/2024 1:02 PM [facility] Urine Urine specimen obtained by clean catch procedure / Unknown 06/26/2024 8:54 AM EST 06/26/2024 12:36 PM EST us Filiberto Page MD LAB URINE ORDERABLES Final Resu lt [facility] [address] [place] [address], * (ABNORMAL) Culture urine (06/26/2024 8:54 AM EST) Culture, Urine >100,000 CFU/mL Staphylococcus epidermidis(A) CARLOS 06/28/2024 12:12 PM [facility] Comment: Edited result: Previously reported [...] MICROBIOLOGY - GENERAL KATHY ARGUETA Final Result [facility] [address] [place] [address], documented in this encounter Visit Diagnoses Diagnosis Bladder-neck obstruction Urinary tract infection, site not specified documented in this encounter Care Teams Animal Control Specialist Relationship Specialty Start Date End Date Marshal Cabrales DO [address] [place] [phone] PCP - General Internal Medicine 07/21/20 documented as of this encounter
--- OUTSIDE RECORDS SUMMARY | 2025-04-22 07:15 | XMS_ITS | Patient Health Record ---
Author Organization [facility] Address [address] [place] [address] Care Team Providers Care Rag Grader Name Role Phone DIAMOND JAIN Primary Care Provider Marshal Moyer [phone] Allergies Allergen (clinical drug ingredient) Drug/Non Drug Allergy documented on EMR Reaction Allergy Type Onset Date Status Substance with sulfonamide structure and antibacterial mechanism of action (substance) Sulfa Antibiotics RASH Drug Allergy Active Results Component Value Reference Range Notes Pathology (Not yet reviewed by provider) Interpretation: Performing Lab:[facility], [address] [place] [phone] Notes/Report: Reason For Referral No Information Medications Medication SIG (Take, Route, Frequency, Duration) Notes Start Date End Date Status Co Q-10 Active Multivitamin minerals Active amLODIPine Besylate 5 MG Tablet Oral; Duration: 90 Days Acti ve Immunizations Vaccine Route Administration Date Status Comme nts Influenza Unknown 01/04/2019 Administered Social History Tobacco Use: Social History Observation Description Date Details (start date - stop date) Never Smoker NA - NA Social History Drugs/Alcohol: Social Info Question Answer Notes Alcohol Screen Did you have a drink containing alcohol in the past year? Yes How often did you have a drink containing alcohol in the past year? Never (0 point) How many drinks did you have on a typical day when you were drinking in the past year? 1 or 2 drinks (0 point) How often did you have 6 or more drinks on one occasion in the past year? 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 Section Notes: Nonsmoker; no sig alcohol Nonsmoker; no sig alcohol Problems Problem Type SNOMED Code ICD Code Onset Dates Problem Status W/U Status Risk Notes Problem Screening for malignant neoplasm of colon (843719390) Encounter for screening for malignant neoplasm of colon (Z12.11) Active confirmed Problem Preprocedural examination (224602658322912) Preprocedural examination (Z01.818) Active confirmed Problem Family History of Cancer of Colon (Situation) (002161123) Family history of colon cancer (Z80.0) Active confirmed Problem History of adenomatous polyp of colon (672018816) History of adenomatous polyp of colon (Z86.0101) Active confirmed Vital Signs Blood pressure diastolic 77 mm Hg 01/05/2025 Height 73 in 01/05/2025 Blood pressure systolic 111 mm Hg 01/05/2025 Weight 185 lbs 01/05/2025 BMI 24.41 kg/m2 01/05/2025 Procedures Procedure Date Ordered Date Performed Result Body Sit e COLONOSCOPY 01/05/2025 N/A Encounters Encounter Location Date Provider Diagnosis [facility] [address] [place] [id number] 03/24/2025 Marshal Ramirez [facility] [address] [place] [address] 01/05/2025 Marshal Ramirez Encounter for screening for malignant neoplasm of colon Z12.11 ; Preprocedural examination Z01.818 ; Family history of colon cancer Z80.0 and History of adenomatous polyp of colon Z86.0101 Assessments Encounter Date Diagnosis (ICD Code) Assessment Notes Treatment Notes Treatment Clinical Notes Section Notes 01/05/2025 Encounter for screening for malignant neoplasm of colon (ICD-10 - Z12.11) Overall, Nannette appears quite well. Given his personal history of tubular adenomas, his family history of colon cancer in his father, and his last colonoscopy being over 5 years ago, I did recommend a follow-up colonoscopy for further screening purposes. We did review the rationale for that in regard to colon cancer prevention. Full consent has been obtained for this, including risks of bleeding and perforation. The procedure will be done with monitored anesthesia care. We did discuss his upper GI series finding of the small hiatal hernia and reflux, but at this point he is asymptomatic and without any worrisome symptoms to suggest the need for an upper endoscopy at this time. I did advise him to let me know if anything worsens in that regard with reflux or dysphagia. Nannette was comfortable with this plan. Thank you again for allowing me to participate in Nannette's care. I shall continue to keep you advised of his progress. 01/05/2025 Preprocedural examination (ICD-10 - Z01.818) Overall, Nannette appears quite well. Given his personal history of tubular adenomas, his family history of colon cancer in his father, and his last colonoscopy being over 5 years ago, I did recommend a follow-up colonoscopy for further screening purposes. We did review the rationale for that in regard to colon cancer prevention. Full consent has been obtained for this, including risks of bleeding and perforation. The procedure will be done with monitored anesthesia care. We did discuss his upper GI series finding of the small hiatal hernia and reflux, but at this point he is asymptomatic and without any worrisome symptoms to suggest the need for an upper endoscopy at this time. I did advise him to let me know if anything worsens in that regard with reflux or dysphagia. Nannette was comfortable with this plan. Thank you again for allowing me to participate in Nannette's care. I shall continue to keep you advised of his progress. 01/05/2025 Family history of colon cancer (ICD-10 - Z80.0) Overall, Nannette appears quite well. Given his personal history of tubular adenomas, his family history of colon cancer in his father, and his last colonoscopy being over 5 years ago, I did recommend a follow-up colonoscopy for further screening purposes. We did review the rationale for that in regard to colon cancer prevention. Full consent has been obtained for this, including risks of bleeding and perforation. The procedure will be done with monitored anesthesia care. We did discuss his upper GI series finding of the small hiatal hernia and reflux, but at this point he is asymptomatic and without any worrisome symptoms to suggest the need for an upper endoscopy at this time. I did advise him to let me know if anything worsens in that regard with reflux or dysphagia. Nannette was comfortable with this plan. Thank you again for allowing me to participate in Nannette's care. I shall continue to keep you advised of his progress. 01/05/2025 History of adenomatous polyp of colon (ICD-10 - Z86.0101) Overall, Nannette appears quite well. Given his personal history of tubular adenomas, his family history of colon cancer in his father, and his last colonoscopy being over 5 years ago, I did recommend a follow-up colonoscopy for further screening purposes. We did review the rationale for that in regard to colon cancer prevention. Full consent has been obtained for this, including risks of bleeding and perforation. The procedure will be done with monitored anesthesia care. We did discuss his upper GI series finding of the small hiatal hernia and reflux, but at this point he is asymptomatic and without any worrisome symptoms to suggest the need for an upper endoscopy at this time. I did advise him to let me know if anything worsens in that regard with reflux or dysphagia. Nannette was comfortable with this plan. Thank you again for allowing me to participate in Nannette's care. I shall continue to keep you advised of his progress. Plan Of Treatment Pending Test Test Name Order Date COLONOSCOPY 01/05/2025 Pathology 03/24/2025 Future Test Test Name Order Date COLONOSCOPY 09/08/2019 Insurance Providers Payer Name Payer Address Payer Phone Subscriber Number Group Number Insured Name Patient Relationship to Insured Coverage Start Date Coverage End Date [facility] [address] [place] [address] [id number] NANNETTE LIN Self - patient is the insured Medical (General) History Medical History History ICD Code Hypertension Denies NC,DM,CVA,Lung disease,renal dise ase Neg. colonoscopy in 11/2008 Colonoscopy 09/2019 with 2 tubular adenom as removed Surgical History Surgery Date(Month/Year) Basal cell removal left shoulder Ganglion cyst wrist Mole removal left chest TURP 07/2024
--- OUTSIDE RECORDS SUMMARY | 2025-04-22 07:15 | XMS_ITS | Clinical Summary ---
Author Organization [facility] [address] [place] [address] Address [address] [place] [address] Phone Care Team Providers Care Tunnel Form Placing Supervisor Name Role Phone Marshal Cabrales DO Primary Care Provider [phone] Medical History Medical History Date Comments Essential [...] [place] - [place] Care Teams Tunnel Form Placing Supervisor Relationship Specialty Start Date End Date Marshal Cabrales DO [address] [place] [phone] PCP - General Internal Medicine 07/21/20
[2025-04-22 10:11] LABS: Appearance Urine Clear; Glucose Urine UA Negative (Negative); PH 6.5 (5.0-9.0); Specific Gravity - Urine 1.010 (1.005-1.025)
[2025-04-22 10:20] LABS: MANUAL DIFF FLAG NO
[2025-04-22 10:42] LABS: Hematocrit 46.6 % (42.0-52.0); Hemoglobin 15.6 g/dl (14.0-18.0); Imm Gran Abs Auto 0.03 X10*3/uL (0.00-0.03); Imm Gran Pct Auto 0.4 % (0.0-0.4); Lymphocytes Absolute Auto 1.5 X10*3/uL (1.2-4.9); Mean Corpuscular HGB Conc 33.5 g/dl (31.0-36.0); Mean Corpuscular Hemoglobin 30.8 pg (27.0-33.0); Mean Corpuscular Volume 91.9 fL (80.0-98.0); NRBC Abs Auto 0.000 X10*3/uL (0.0-0.012); NRBC Pct Auto 0.0 /100WBC (0.0-0.2); Platelet Count 392 X10*3/uL (160-400); Red Blood Count 5.07 X10*6/uL (4.60-5.80); White Blood Count 6.9 X10*3/uL (4.8-10.8)
[2025-04-22 11:07] LABS: PSA,Total (Free>4and<10) 2.08 ng/mL (0.00-4.00)
[2025-04-22 11:18] LABS: Alanine Aminotransferase 14 U/L (0-40); Albumin Level 4.6 g/dL (3.5-5.0); Alkaline Phosphatase 82 U/L (39-117); Anion Gap 11 (12-20); Aspartate Amino Transferase 25 U/L (5-37); Blood Urea Nitrogen 28 mg/dL (9-16); Calcium 9.2 mg/dL (8.4-10.2); Carbon Dioxide 27 mmol/L (22-29); Chloride 106 mmol/L (96-108); Cholesterol 192 mg/dL (<200); Estimated Glomerular Filt Rate 43; Folate 12.5 ng/mL (> or = 4.0); HDL Cholesterol 51 mg/dL (>40); Magnesium 2.2 mg/dL (1.6-2.6); Potassium 3.7 mmol/L (3.3-5.1); Sodium 140 mmol/L (135-145); Total Protein 6.8 g/dL (6.5-8.0); Triglycerides 57 mg/dL (<150); Vitamin B12 726 pg/mL (200-900)
[2025-04-22 12:00] LABS: Microalbum/Creatinine Ratio Ur 55.0 ug/mg cr (<30)
== END 2025-04-22 07:14 ==
LOC: HO.HMGCLDS 07:13
PROVIDERS: PCP Physician Assistant Medical; Visit Provider Physician Assistant Medical
DX: Z00.00 Encounter for general adult medical examination without abnormal findings (principal); Z12.5 Encounter for screening for malignant neoplasm of prostate; I12.9 Hypertensive chronic kidney disease with stage 1 through stage 4 chronic kidney disease, or unspecified chronic kidney disease; E11.22 Type 2 diabetes mellitus with diabetic chronic kidney disease; N18.9 Chronic kidney disease, unspecified; N40.1 Benign prostatic hyperplasia with lower urinary tract symptoms; R33.8 Other retention of urine; R60.0 Localized edema; Z79.899 Other long term (current) drug therapy
CPT/HCPCS: 36415; 80053; 80061; 81003; 82043; 82306; 82570; 82607; 82746; 83036; 83735; 84153; 84443; 85025; 85652; 86140; 99212

== ENCOUNTER 2025-04-22 15:38 | Outpatient (AMB) | payer MEDICARE, SELFPAY ==
[2025-04-22 15:45] VITALS: BP 136/86; PULSE 77; O2SAT 98; BMI 24.5
--- NOTE | 2025-04-22 15:45 | HO.NEPHOV_ITS ---
Vital Signs 04/22/25 15:45 Height 6 ft 1 in Weight 186 lb BMI 24.5 BP 136/86 Blood Pressure Location Lt brachial Position Sitting Pulse 77 Pulse Source Pulse Oximeter Pulse Oximetry (%) 98 Oxygen Delivery Method Room Air Intake Visit Reasons: F/U Nuclear Medical Technologist Required: No Accompanied by: Self / Same As Patient Allergies Sulfa (Sulfonamide Antibiotics) Allergy (Verified 04/22/25 15:47) Hives Medication List - Last Reconciled 04/22/25 by Nelson Torres MD amlodipine 10 mg PO DAILY coenzyme Q10 200 mg PO DAILY multivitamin with minerals 1 cap PO DAILY HPI Comments Details: History of Present Illness The patient is a 69 year old male presenting for follow-up of chronic kidney disease due to Obstructive uropathy . His creatinine level has shown significant improvement, decreasing from 3.53 mg/dL in May to 1.6 mg/dL currently. His eGFR has improved from 17% to 43%, and his baseline creatinine was previously 1.2-1.3 mg/dL four to five years ago. His anemia has resolved, with hemoglobin returning to a normal level of 15.6. The patient has a history of prostate enlargement, which was noted on an ultrasound in May. This condition led to urinary distress requiring him to self-catheterize four times a day. He underwent a transurethral resection of the prostate (TURP) in July, and pathology of the removed tissue was benign. Since the procedure, he reports no further urinary issues such as incontinence, dribbling, or hematuria. The patient's blood pressure is reported as controlled, with a recent reading of 136/86 mmHg. He adheres to a low-salt diet, has stopped eating red meat, avoids dark orquidea, and ensures adequate fluid intake. He denies the use of NSAIDs like Aleve, Advil, or Motrin. He had been avoiding potassium-rich foods such as avocados and oranges due to previous concerns about high potassium levels when his creatinine was elevated. The patient notes some ankle swelling, mainly affecting the right ankle, which he believes is related to amlodipine. This swelling improves with walking and elevation and worsened recently after prolonged physical activity, which made him concerned about a potential blood clot, though it resolved after resting. Results - Labs: - Creatinine: 1.6 mg/dL, improved from 3.53 mg/dL in May. - eGFR: 43%, improved from 17%. - Hemoglobin: 15.6, indicating resolution of anemia. - Urinalysis: Negative for protein and blood. - Imaging: - Ultrasound (May): Showed posterior prostate enlargement. - Procedures: - TURP (July): Pathology of resected tissue was benign. [facility] Medical History (Updated 04/21/25 @ 12:55 by Liliana Johnson PA-C) CKD (chronic kidney disease) stage 3, GFR 30-59 ml/min Annual physical exam Floaters in visual field Peripheral edema Elevated parathyroid hormone BPH loc w/o ur obs/LUTS Intermittent self-catheterization of bladder Obstructed, uropathy Enlarged prostate Bilateral hydronephrosis Hypertension Basal cell carcinoma Scoliosis Elevated PSA Renal insufficiency Mild hypercholesterolemia Surgical History History of transurethral resection of prostate Hx of basal cell carcinoma excision History of surgical removal of ganglion cyst History of colonoscopy (03/25/25) S/P TURP Family History Maternal Grandfather Diabetes Father Colon cancer Social History Household Members: Friend(s) Housing: House Alcohol intake: current Alcohol intake frequency: does not drink Patient Tobacco Use Status: Never used Tobacco e-Cigarette/Vaping Use: Never Used Current occupational status: retired Cognitive needs: No Hearing needs: No Vision needs: Yes Physical Exam Exam Exam: Physical Exam General: Awake. Comfortable. HENT: Neck supple. Mucosa moist. Pulmonary: Lungs aeration equal. No rales. Cardiology: Heart S1-S2 heard. No gallop. Abdomen: Soft. Non tender. Bowel sounds normal. Neurologic: No involuntary movements. No myoclonus. Extremities: Mild swelling in the right ankle, likely due to amlodipine and recent physical activity. No rash. Vital Signs: Last Vital Signs Pulse 77 04/22/25 15:45 BP 136/86 04/22/25 15:45 Pulse Ox 98 04/22/25 15:45 Oxygen Delivery Method Room Air 04/22/25 15:45 BMI result Body Mass Index 24.5 Results Reviewed Nephrology Results: Hgb, (14.0-18.0) 15.6 g/dl Δ Today WBC, (4.8-10.8) 6.9 X10*3/uL Today Plt Count, (160-400) 392 X10*3/uL Δ Today Sodium, (135-145) 140 mmol/L Today Potassium, (3.3-5.1) 3.7 mmol/L Today Chloride, (96-108) 106 mmol/L Today Carbon Dioxide, (22-29) 27 mmol/L Today BUN, (9-16) 28 mg/dL H Today Creatinine, (0.5-1.4) 1.61 mg/dL H Today Calcium, (8.4-10.2) 9.2 mg/dL Today Phosphorus, (2.7-4.5) 2.8 mg/dL 07/22/24 PTH Intact, (8.7-77.1) 31.8 pg/mL 07/22/24 Urine Protein, (Neg-Trace) Negative mg/dL Today Urine Creatinine 67.24 mg/dL Today Renal US 05/26/24 Assessment & Plan Assessment & Plan (1) CKD (chronic kidney disease): Code(s): N18.9 - Chronic kidney disease, unspecified Category: Medical Plan Plan 1. Chronic Kidney Disease, Stage 3 due to obstructive uropathy - The patient's creatinine has significantly improved to 1.6 mg/dL and eGFR is stable at 43 ml/mt, - He was reassured that his current kidney function is stable and that he can liberalize his diet. - He can reintroduce regular foods like avocados and bananas in moderation. - He was advised to continue a low-salt diet, maintain good hydration, and avoid NSAIDs. - He can consume red meat but should avoid it before blood tests to prevent a false elevation in creatinine. - Plan to follow-up in approximately one year for repeat labs and monitoring. 2. Benign Prostatic Hyperplasia - The patient is status post-TURP in July for BPH which caused obstructive uropathy. - He has had a complete resolution of urinary symptoms, including retention, incontinence, and dribbling. - Pathology from the procedure was benign. - No further acute management is required; he will continue care with his urologist as needed. 3. Essential Hypertension - Blood pressure is controlled at 136/86 mmHg. - He will continue his low-salt diet and home blood pressure monitoring. 4. Ankle Edema - The right ankle edema is considered a side effect of amlodipine. - Urinalysis was negative for proteinuria, making a nephrotic cause unlikely. - The patient was reassured as the swelling improves with activity and is not a cause for concern. Orders: Orders Basic Metabolic Panel 10 Months I10 - Essential (primary) hypertension, N18.9 - Chronic kidney disease, unspecified UA and rflx microscopic 10 Months I10 - Essential (primary) hypertension, N18.9 - Chronic kidney disease, unspecified Coding Level of Care Code Est Pt Level 4 (12736) Diagnoses CKD (chronic kidney disease) N18.9
--- OUTSIDE RECORDS SUMMARY | 2025-04-22 19:28 | XMS_ITS | Encounter Summary ---
Author Organization [facility] Address [address] [place] [address] Care Team Providers Care Cart Pusher Name Role Phone Marshal Cabrales DO Primary Care Provider [phone] Encounter Details Date Type Department Care Team (Late st Contact Info) Description 06/26/2024 Lab Requisition [facility] [address] [facility] [place] [address] Filiberto Page MD [address] [place] [address] Bladder-neck obstruction; Urinary tract infection, [...] Complete blood count (06/26/2024 8:54 AM EST) [facility] WBC 7.0 4.8 - 10.8 K/mcL LAB HEMETOLOGY METHOD 06/26/2024 12:52 PM [facility] RBC 4.00(L) 4.50 - 5.50 M/mcL LAB HEMETOLOGY METHOD 06/26/2024 12:52 PM [facility] Hemoglobin 12.5(L) 13.5 - 17.5 g/dL LAB HEMETOLOGY METHOD 06/26/2024 12:52 PM [facility] Hematocrit 38.0(L) 42.0 - 54.0 % LAB HEMETOLOGY METHOD 06/26/2024 12:52 PM [facility] MCV 95.2 79.0 - 98.0 FL LAB HEMETOLOGY METHOD 06/26/2024 12:52 PM [facility] MCH 31.3 27.0 - 32.0 pcg LAB HEMETOLOGY METHOD 06/26/2024 12:52 PM [facility] MCHC 32.9 32.0 - 37.0 g/dL LAB HEMETOLOGY METHOD 06/26/2024 12:52 PM [facility] RDW 14.7 11.0 - 15.0 % LAB HEMETOLOGY METHOD 06/26/2024 12:52 PM [facility] Platelets 367 130 - 400 K/mcL LAB HEMETOLOGY METHOD 06/26/2024 12:52 PM [facility] MPV 9.4 7.0 - 11.0 FL LAB HEMETOLOGY METHOD 06/26/2024 12:52 PM [facility] NRBC 0.0 <1.0 % LAB HEMETOLOGY METHOD 06/26/2024 12:52 PM [facility] NRBC Absolute 0.00 <0.10 K/mcL LAB HEMETOLOGY METHOD 06/26/2024 12:52 PM [facility] Blood Venous blood specimen / Unknown 06/26/2024 8:54 AM EST 06/26/2024 12:36 PM EST us Filiberto Page MD LAB BLOOD ORDERABLES Final Resu lt [facility] [address] [place] [address], [place] [phone] * (ABNORMAL) Urinalysis with reflex microscopic (06/26/2024 8:54 AM EST) Specific [place] Urine 1.016 1.003 - 1.030 LAB URINALYSIS - AUTOMATED METHOD 06/26/2024 1:02 PM [facility] pH, Urine 6.0 5.0 - 8.0 pH LAB URINALYSIS - AUTOMATED METHOD 06/26/2024 1:02 PM [facility] Leukocytes, Urine Moderate(A) Negative LAB URINALYSIS - AUTOMATED METHOD 06/26/2024 1:02 PM [facility] Nitrite, Urine Negative Negative LAB URINALYSIS - AUTOMATED METHOD 06/26/2024 1:02 PM [facility] Protein, Urine Negative <=Trace mg/dL LAB URINALYSIS - AUTOMATED METHOD 06/26/2024 1:02 PM [facility] Glucose, Urine Negative Negative mg/dL LAB URINALYSIS - AUTOMATED METHOD 06/26/2024 1:02 PM [facility] Ketones, Urine Negative Negative mg/dL LAB URINALYSIS - AUTOMATED METHOD 06/26/2024 1:02 PM [facility] Urobilinogen , Urine 0.2 0.2 - 1.0 mg/dL LAB URINALYSIS - AUTOMATED METHOD 06/26/2024 1:02 PM [facility] Bilirubin, Urine Negative Negative LAB URINALYSIS - AUTOMATED METHOD 06/26/2024 1:02 PM [facility] Blood, Urine Negative Negative LAB URINALYSIS - AUTOMATED METHOD 06/26/2024 1:02 PM [facility] RBC, Urine 1.5 0 - 4 /HPF LAB URINALYSIS - AUTOMATED METHOD 06/26/2024 1:02 PM [facility] WBC, Urine 23.9(H) 0 - 4 /HPF LAB URINALYSIS - AUTOMATED METHOD 06/26/2024 1:02 PM [facility] Squamous Epithelial, Urine 37 0 - 60 /LPF LAB URINALYSIS - AUTOMATED METHOD 06/26/2024 1:02 PM [facility] Bacteria, Urine Negative Negative /HPF LAB URINALYSIS - AUTOMATED METHOD 06/26/2024 1:02 PM [facility] Hyaline Casts, Urine 0.0 0 - 3 /LPF LAB URINALYSIS - AUTOMATED METHOD 06/26/2024 1:02 PM [facility] Urine Urine specimen obtained by clean catch procedure / Unknown 06/26/2024 8:54 AM EST 06/26/2024 12:36 PM EST us Filiberto Page MD LAB URINE ORDERABLES Final Resu lt [facility] [address] [place] [address], * (ABNORMAL) Culture urine (06/26/2024 8:54 AM EST) Culture, Urine >100,000 CFU/mL Staphylococcus epidermidis(A) CARLOS 06/28/2024 12:12 PM [facility] Comment: Edited result: Previously reported as [...] MICROBIOLOGY - GENERAL KATHY ARGUETA Final Result [facility] [address] [place] [address], documented in this encounter Visit Diagnoses Diagnosis Bladder-neck obstruction Urinary tract infection, site not specified documented in this encounter Care Teams Cart Pusher Relationship Specialty Start Date End Date Marshal Cabrales DO [address] [place] [phone] PCP - General Internal Medicine 07/21/20 documented as of this encounter
--- OUTSIDE RECORDS SUMMARY | 2025-04-22 19:28 | XMS_ITS | Clinical Summary ---
Author Organization [facility] [address] [place] [address] [address] [place] [address] Phone Care Team Providers Care Environmental Property Assessor Name Role Phone Marshal Cabrales DO Primary Care Provider [phone] Medical History Medical History Date Comments Essential [...] CROSS - [place] MEDIC[place] AD[place] Care Teams Environmental Property Assessor Relationship Specialty Start Date End Date Marshal Cabrales DO [address] [place] [phone] PCP - General Internal Medicine 07/21/20
== END 2025-04-22 16:05 | disposition home or self-care (01) ==
LOC: HO.HKA 15:39
PROVIDERS: PCP Physician Assistant Medical; Visit Provider Internal Medicine Hypertension Specialist
DX: N18.9 Chronic kidney disease, unspecified (principal)
CPT/HCPCS: 99214